=== PATIENT | female | born 1980 | race Caucasian/White ===

== ENCOUNTER 2018-09-17 12:54 | Emergency (ER) | payer SELFPAY ==
[2018-09-17] MEDS ORDERED: predniSONE 20 MG TAB ONE (13:47)
[2018-09-17] MEDS ORDERED: hydrOXYzine 25 MG TAB ONE (13:47)
[2018-09-17 14:34] LABS: ALT (SGPT) 14 U/L (8-55); AST (SGOT) 10 U/L (5-34); Albumin 3.9 g/dL (3.5-5.0); Alkaline Phosphatase 89 U/L (40-150); Anion Gap 12 mmol/L (10-20); BUN (Urea Nitrogen) 10 mg/dL (7.0-18.7); Bilirubin, Total 0.3 mg/dL (0.2-1.2); Calc. Creatinine Clearance 0 mL/min (70-130); Calcium 9.2 mg/dL (7.8-10.44); Carbon Dioxide 23 mmol/L (22-29); Chloride 105 mmol/L (98-107); Estimated GFR-MDRD 86; Globulin 3.3 g/dL (2.4-3.5); Glucose 129 mg/dL (70-105); Potassium 4.1 mmol/L (3.5-5.1); Protein, Total 7.2 g/dL (6.0-8.3); Sodium 136 mmol/L (136-145)
[2018-09-17 14:49] LABS: #Eosinphils 0.5 thou/uL (0.0-0.7); #Lymphocytes 2.4 thou/uL (1.20-3.40); #Monocytes 0.8 thou/uL (0.11-0.59); %Basophils 0.4 % (0.0-1.0); %Eosinophils 5.1 % (0.0-10.0); %Lymphocytes 22.1 % (21.0-51.0); %Monocytes 7.5 % (0.0-10.0); %Neutrophils 64.9 % (42.0-75.0); Hemoglobin 11.7 g/dL (12.0-16.0); Mean Corpuscular HGB CONC 32.6 g/dL (32.0-36.0); Mean Corpuscular Hemoglobin 30.2 pg (27.0-31.0); Mean Corpuscular Volume 92.7 fL (78.0-98.0); Mean Platelet Volume 8.3 fL (7.4-10.4); Platelet Count 367 thou/uL (130-400); RBC Distribution Width 12.1 % (11.5-14.5); Red Blood Cell (RBC) Count 3.87 mill/uL (4.20-5.40); White Blood Cell (WBC) Count 10.8 thou/uL (4.8-10.8)
== END 2018-09-17 15:02 | disposition home or self-care (01) ==
LOC: ERS 12:54
DX: S40.862A Insect bite (nonvenomous) of left upper arm, initial encounter (principal); S40.861A Insect bite (nonvenomous) of right upper arm, initial encounter; S80.862A Insect bite (nonvenomous), left lower leg, initial encounter; S80.861A Insect bite (nonvenomous), right lower leg, initial encounter; L03.113 Cellulitis of right upper limb; L03.114 Cellulitis of left upper limb; L03.115 Cellulitis of right lower limb; L03.116 Cellulitis of left lower limb; W57.XXXA Bitten or stung by nonvenomous insect and other nonvenomous arthropods, initial encounter
CPT/HCPCS: 36415; 80053; 85025; 99283; J7512

== ENCOUNTER 2019-02-28 17:13 | Inpatient (IN) | payer MEDICAID, SELFPAY ==
[~2019-02-28 17:13] MED LIST: Heparin 1,000 UNITS/ML VIAL ONE
[2019-02-28] MEDS ORDERED: Ondansetron PF 4 MG/2 ML Vial ONE (17:30)
[2019-02-28] MEDS ORDERED: Morphine 4 MG/ML VIAL ONE (17:30)
[2019-02-28] MEDS ORDERED: Clindamycin/D5W 900 mg/50 ml Premix Bag ONE (17:30)
[2019-02-28] MEDS ORDERED: HYDROcodone/Acetaminophen 7.5/325 mg Tablet PO PRN (18:57)
[2019-02-28] MEDS ORDERED: Senokot S 8.6-50 MG TAB PO PRN (18:57)
[2019-02-28] MEDS ORDERED: diphenhydrAMINE 50 MG/ML VIAL IVP SCH (19:00)
[2019-02-28] MEDS ORDERED: Vancomycin HCl 1 GM in Premix Bag 1 BAG IVPB SCH (19:45)
[2019-02-28] MEDS ORDERED: Ondansetron ODT 4 MG TAB SL PRN (20:11)
[2019-02-28] MEDS ORDERED: Ondansetron PF 4 MG/2 ML Vial IVP PRN (20:11)
[2019-02-28 20:12] VITALS: BMI 50.1
[2019-02-28] MEDS: Famotidine 20 MG TAB PO SCH (20:26)
[2019-02-28] MEDS: Sodium Chloride 0.9% 1,000 ML IV SCH (20:26)
[2019-02-28] MEDS ORDERED: Morphine 4 MG/ML VIAL SLOW IVP PRN (20:30)
[2019-02-28] MEDS: Morphine 4 MG/ML VIAL SLOW IVP PRN (20:56)
[2019-02-28] MEDS: hydrOXYzine 25 MG TAB PO PRN (20:59)
--- NOTE | 2019-02-28 21:46 | HP ---
CHIEF COMPLAINT: Fever. HISTORY OF PRESENT ILLNESS: Ms. Mcqueen is a pleasant female, who reported to the emergency room today in [place] for evaluation of fever, chills, and malaise. The patient has a history of Pemphigus foliaceus, lymphocytic disease, which involves the deep layers of skin causing an antigen antibody response, and causes the softening of the skin, and exposure of the deep layers to infection. She reports that she has been at [facility] twice over the last month and received an infusion to help with the skin lesions. She is not sure what it is, but she reports that it is in her phone and when her phone charges, she will look it up and tell us. She has a followup appointment for another infusion on March 08 and has a followup appointment with the MS doctor on the of this month. She reports that she has been feeling ill for the last couple of days and reports that her fever, because of her disorder, she feels feverish on the inside, less so on the outside. Workup in the emergency room over [place] show that the patient had a temp of a 101. She was tachycardic, hypertensive, dyspneic, and she was started on some fluids and antibiotics. She was given 3 L of lactated Ringer's. Clindamycin was acknowledged but not given until she came to [facility], so ibuprofen, prednisone 60 mg, Zosyn, fentanyl 50 mcg, vancomycin 2 g, Phenergan 25, Zofran 4, and Tylenol 1000 mg. She was initially going to be transferred to [place] after Dr. Murphy in the ER at [place], talk to her gravity prospecting operator, Dr. Willett in [place]. Beds were full and so he stated it was important for her to receive her prednisone 60 mg daily so the emergency room of [place] gave her a dose today, and she was sent over to [facility] for admission for sepsis, most likely related to cellulitis due to her PF disorder. By the time she was sent over, vital signs had improved. Blood pressure 187/82, pulse 103, respirations 20, temp slightly improved at 100.3. LABORATORY DATA: Lab work shows white blood cell count 14.6, hemoglobin 10.4, hematocrit 32.3, and platelet count 430. Sodium of 133, potassium of 4.1, glucose 149, and lactic acid 3.1. Urine was negative. She will be admitted to the medical floor for further management and antibiotic therapy. REVIEW OF SYSTEMS: GENERAL: The patient reports fever, chills, malaise. Reports pain due to skin lesions and bullae. Reports pain from these open sores which are systemic. EYES: Denies any eye pain. CARDIOVASCULAR: Denies any chest pain. Denies any shortness of breath. GI: Denies any abdominal pain, current nausea, vomiting, diarrhea, although she did have some nausea earlier today. BACK: Denies any back pain. All systems reviewed and are negative unless mentioned in the HPI or above. PAST MEDICAL HISTORY: Pertinent for hypertension, obesity, she has some kidney stones. She reports that she has one in her left kidney which is too large to pass on its own and then Pemphigus vulgaris. PAST SURGICAL HISTORY: Eardrum transplant, tubal ligation, and appendectomy. PSYCHIATRIC HISTORY: Has depression. SOCIAL HISTORY: Lives at home with her family. Denies any alcohol or drug use. Has no smoking history. ALLERGIES: KNOWN ALLERGIES, CEFTAZIDIME, DIAZEPAM, AND SILVADENE. CURRENT MEDICATIONS: Per the ER system. This have to be verified. 1. Hydrocortisone topical 2.5% two times a day. 2. Prednisone 60 mg p.o. once a day. 3. Sertraline 50 mg one tab once a day. 4. Hydroxyzine 25 mg one tab q.6 hours. 5. Amlodipine 5 mg p.o. once a day. 6. Doxycycline 100 mg 2 times a day. PHYSICAL EXAMINATION: VITAL SIGNS: Blood pressure 158/84, pulse is 99, respirations are 18, temperature is 98.4, and pO2 sats are 99% on room air. CONSTITUTIONAL: The patient is a little tachycardic. She looks in mild to moderate pain distress, but she is alert and oriented to person, place, and time. HEENT: Head is atraumatic and normocephalic. Eyes, pupils are equally round and reactive to light. Extraocular muscles are intact. ENT, mouth exam is normal. Mucous membranes are moist. NECK: Normal range of motion. Trachea is midline. RESPIRATORY: Chest breath sounds are clear. Chest expansion is equal. CARDIOVASCULAR: Regular rate and rhythm. Heart sounds are normal. ABDOMEN: Nontender. Bowel sounds are heard. Exam is limited by body habitus. BACK: Normal range of motion. No CVA tenderness. EXTREMITIES: Upper extremity normal range of motion. Inspection is normal except for the skin. Sensation is intact. Radial pulses are normal. Lower extremities, normal range of motion. Motor strength is normal. Pedal pulses are normal. There is edema bilaterally +2. NEURO: She is oriented to person, place, and time. Speech is normal. SKIN: Warm, dry. She has bullous lesions systemically, varying degrees, and edges of healing with serous fluid. PLAN/ASSESSMENT: 1. Sepsis most likely due to cellulitis due to Pemphigus vulgaris. The patient reports that she has a hard time taking a good bath every day because the water hurts her skin due to the bullous lesions and sensitivity. We will ask Wound Care to consult and give us recommendations. We will ask Dr. Barrios, DIANA to give us his recommendations. Per her gravity prospecting operator in [place], we will continue the prednisone 60 mg p.o. daily. Antibiotics were started in the emergency room, vancomycin, Zosyn, and clindamycin. The patient has an allergy to third class cephalosporin. Pharmacy was contacted in [place] and the pharmacy recommended that we start meropenem instead of the Zosyn. This has been dosed q.8. IV fluids at 100 mL/h continued. Pain medication Zofran as needed. Also we will continue Atarax for the itching that she has primarily on her back. 2. History of hypertension. We will trend. We will continue her amlodipine. Start p.r.n. medications as needed. 3. Deep venous thrombosis and gastrointestinal prophylaxis started. 4. Case discussed with Dr. Antonio, who agrees with plan. Job ID: [id number]
[2019-02-28] MEDS: MEROPENEM 1 GM/50 ML 1 GM in Premix Bag 1 BAG IVPB SCH (22:30)
[2019-02-28] MEDS ORDERED: Sodium Chloride 0.9% 1,000 ML IV SCH (22:30)
[2019-02-28] MEDS: HYDROcodone/Acetaminophen 7.5/325 mg Tablet PO PRN (22:31)
[2019-03-01] MEDS: Clindamycin/D5W 900 MG in Premix Bag 1 BAG IVPB SCH ×3 (00:28→17:10)
[2019-03-01] MEDS ORDERED: Proctozone-HC 2.5% Cream 30 GM TUBE TOP PRN (01:26)
[2019-03-01] MEDS: Morphine 4 MG/ML VIAL SLOW IVP PRN ×3 (01:52→22:47)
[2019-03-01] MEDS ORDERED: predniSONE 20 MG TAB ONE (07:37)
[2019-03-01] MEDS ORDERED: Clindamycin/D5W 900 mg/50 ml Premix Bag ONE (07:38)
[2019-03-01] MEDS ORDERED: HYDROcodone/Acetaminophen 7.5/325 mg Tablet ONE (07:39)
[2019-03-01] MEDS ORDERED: Famotidine 20 MG TAB ONE (07:49)
[2019-03-01] MEDS: Enoxaparin Sodium 40 MG/0.4 ML SYRINGE SC SCH (08:15)
[2019-03-01] MEDS: Amlodipine 5 MG TAB PO SCH (08:15)
[2019-03-01] MEDS: predniSONE 20 MG TAB PO SCH (08:15)
[2019-03-01] MEDS: Nystatin Ointment 15 GM TUBE TOP SCH ×2 (08:15→20:12)
[2019-03-01] MEDS: Famotidine 20 MG TAB PO SCH ×2 (08:15→20:08)
[2019-03-01] MEDS: Sodium Chloride 0.9% 1,000 ML IV SCH ×2 (12:49→15:29)
[2019-03-01] MEDS: MEROPENEM 1 GM/50 ML 1 GM in Premix Bag 1 BAG IVPB SCH ×2 (12:50→15:28)
[2019-03-01] MEDS: HYDROcodone/Acetaminophen 7.5/325 mg Tablet PO PRN ×2 (13:08→20:07)
[2019-03-01 14:15] LABS: #Eosinphils 0.2 thou/uL (0.0-0.7); #Lymphocytes 2.2 thou/uL (1.20-3.40); #Monocytes 1.4 thou/uL (0.11-0.59); #Neutrophils 6.9 thou/uL (1.40-6.50); %Basophils 0.2 % (0.0-1.0); %Eosinophils 2.1 % (0.0-10.0); %Lymphocytes 20.7 % (21.0-51.0); %Monocytes 12.6 % (0.0-10.0); %Neutrophils 64.4 % (42.0-75.0); Hemoglobin 10.5 g/dL (12.0-16.0); Mean Corpuscular HGB CONC 32.4 g/dL (32.0-36.0); Mean Corpuscular Hemoglobin 29.1 pg (27.0-31.0); Mean Corpuscular Volume 89.7 fL (78.0-98.0); Mean Platelet Volume 7.9 fL (7.4-10.4); Platelet Count 361 thou/uL (130-400); RBC Distribution Width 13.8 % (11.5-14.5); Red Blood Cell (RBC) Count 3.62 mill/uL (4.20-5.40); White Blood Cell (WBC) Count 10.7 thou/uL (4.8-10.8)
--- NOTE | 2019-03-01 16:00 | SPC ---
Sonographic guided left upper extremity PICC placement HISTORY: Skin infection. FINDINGS: After explaining the procedure and answering all questions, left upper extremity was preppe d and draped in usual sterile fashion. Sterile technique, buffered local anesthesia, sonographic guidance, and a 22-gauge needle were used to carefully access the left cephalic vein. Standard techni que was used to place the tip of a 5 Chinese single lumen PICC so that the tip lies at the level of the cavoatrial junction. Catheter was flushed and secured externally. Patient tolerated the procedure well and was returned in unchanged condition. Fluoroscopy time 0 seconds. IMPRESSION: Left upper extremity PICC is ready for use.
[2019-03-01 19:44] LABS: Anion Gap 18 mmol/L (10-20); BUN (Urea Nitrogen) 11 mg/dL (7.0-18.7); Calc. Creatinine Clearance 272 mL/min (70-130); Calcium 8.5 mg/dL (7.8-10.44); Carbon Dioxide 18 mmol/L (22-29); Chloride 104 mmol/L (98-107); Estimated GFR-MDRD Greater than 90; Glucose 83 mg/dL (70-105); Potassium 4.5 mmol/L (3.5-5.1); Sodium 135 mmol/L (136-145)
[2019-03-01] MEDS: hydrOXYzine 25 MG TAB PO PRN (20:08)
[2019-03-01] MEDS ORDERED: FLU VACC QS2019-20(6MOS UP)/PF 60 MCG/0.5 ML SYRINGE IM ONE (21:00)
[2019-03-01] MEDS ORDERED: Prevnar 13-Val Conj/PF 0.5 ML SYRINGE IM ONE (21:00)
--- NOTE | 2019-03-01 21:03 | PDOC.HOSPP ---
- Subjective Subjective: Continues to have severe pain especially around the neck and axillae. Had an infusion of some kind at [facility] and has been on Prednisone high dose since. Was not aware that she was febrile until she was in the ED. - Objective Vital Signs & Weight: Vital Signs (12 hours) Temp Pulse Resp BP Pulse Ox 03/01/19 19:49 98.6 F 106 H 19 155/76 H 99 Weight Admit Weight 329 lb 11.2 oz Weight 329 lb 11.2 oz I&O: 02/28/19 03/01/19 03/02/19 06:59 06:59 06:59 Intake Total 1080 Balance 1080 Result Diagrams: 03/01/19 07:03 03/01/19 07:03 Hospitalist ROS - Medication Medications: Active Medications Generic Name Dose Route Start Last Admin Trade Name Freq PRN Reason Stop Dose Admin Hydrocodone Bitart/Acetaminophen 2 tab 02/28/19 18:57 03/01/19 20:07 [place] 7.5/325 PO 2 tab Q4H PRN Administration Severe Pain (7-10) Amlodipine Besylate 5 mg 03/01/19 09:00 03/01/19 08:15 Norvasc PO 5 mg DAILY KERRY Administration Enoxaparin Sodium 40 mg 03/01/19 09:00 03/01/19 08:15 Lovenox SC 40 mg 0900 KERRY Administration Famotidine 20 mg 02/28/19 21:00 03/01/19 20:08 Pepcid PO 20 mg BID KERRY Administration Hydroxyzine HCl 25 mg 02/28/19 20:31 03/01/19 20:08 Atarax PO 25 mg Q6H PRN Administration Itching Sodium Chloride 1,000 mls @ 100 mls/hr 02/28/19 19:00 03/01/19 15:29 Normal Saline 0.9% IV Not Given .Q10H KERRY Influenza Virus Vaccine Quadrival 60 mcg 03/01/19 21:00 03/01/19 20:13 Fluzone Quad [id number] Syringe IM 03/01/19 21:01 Not Given .ONCE ONE Morphine Sulfate 4 mg 02/28/19 20:47 03/01/19 17:04 Morphine SLOW IVP 4 mg Q4H PRN Administration Breakthrough Pain Nystatin 0 gm 03/01/19 09:00 12/04/19 20:12 Mycostatin Ointment TOP Not Given BID KERRY Pneumococcal 13-Valent Conj Vacc 0.5 ml 03/01/19 21:00 03/01/19 20:13 Prevnar IM 03/01/19 21:01 Not Given .ONCE ONE Prednisone 60 mg 03/01/19 08:00 03/01/19 08:15 Prednisone PO 60 mg QAM-WM KERRY Administration Sertraline HCl 50 mg 03/01/19 21:00 03/01/19 20:08 Zoloft PO 50 mg HS KERRY Administration Triamcinolone Acetonide 0 gm 03/01/19 09:00 03/01/19 20:12 Kenalog 0.1% Ointment TOP Not Given BID KERRY - Exam General Appearance: NAD, awake alert General - other findings: morbidly obese Heart: RRR, no murmur, no gallops, no rubs, normal peripheral pulses Respiratory: CTAB, no wheezes, no rales, no ronchi, normal chest expansion, no tachypnea, normal percussion Gastrointestinal: soft, non-tender, non-distended, normal bowel sounds, no palpable masses, no hepatomegaly, no splenomegaly, no bruit Extremities: no cyanosis, no clubbing, no edema Skin - other findings: Multiple pemphigoid lesions over entire body. Cellulitis at neck, axilla. Neurological: no new deficit Musculoskeletal: normal tone, normal strength, no muscle wasting Psychiatric: normal affect, normal behavior, A&O x 3 Hosp A/P (1) Sepsis Code(s): A41.9 - SEPSIS, UNSPECIFIED ORGANISM Status: Acute (2) Pemphigus foliaceous Code(s): L10.2 - PEMPHIGUS FOLIACEOUS Status: Acute (3) Cellulitis Code(s): L03.90 - CELLULITIS, UNSPECIFIED Status: Acute (4) Morbid obesity Code(s): E66.01 - MORBID (SEVERE) OBESITY DUE TO EXCESS CALORIES Status: Acute - Plan Continue IV abx and follow up cultures. ID consult. Pain management. Wound Care Team.
[2019-03-02] MEDS: HYDROcodone/Acetaminophen 7.5/325 mg Tablet PO PRN ×4 (00:47→20:26)
[2019-03-02] MEDS: Sodium Chloride 0.9% 1,000 ML IV SCH ×3 (00:55→20:28)
--- NOTE | 2019-03-02 00:57 | CON ---
DATE OF CONSULTATION: 03/01/2019 REASON FOR CONSULTATION: Pemphigus foliaceus with fever. HISTORY OF PRESENT ILLNESS: A 38-year-old patient who has a history of pemphigus foliaceus, which was diagnosed in [facility] in August through a skin biopsy. The patient has been managed over there and had been initially on corticosteroids, 60 mg of prednisone daily, but due to lack of improvement. She has been started on Rituxan infusions, has gotten 1 dose thus far. She lives I believe in [place] with family members and is very limited in her ability to carry out her activities of daily living, because of her skin eruption. She has constant burning sensation in her skin as if she had a constant sunburn. She also has difficulty in sleeping at night, cannot go outside because of the possible sun exposure and developed a fever with worsening pain and has been admitted. She has some headaches. No sore throat, odynophagia, or dysphagia. No diarrhea or genitourinary symptoms. No cough, no chest pain. No abdominal pain. PAST MEDICAL HISTORY: Hypertension, obesity, nephrolithiasis, Pemphigus foliaceus. The patient had skin biopsies in [place]. SOCIAL HISTORY: Disabled. No smoking history, no alcoholic beverages or drug use. ALLERGIES: CEFTAZIDIME, SILVADENE. MEDICATIONS: Currently; 1. Tylenol. 2. [place]. 3. Norvasc. 4. Clindamycin. 5. Lovenox. 6. Pepcid. 7. Influenza. 8. Meropenem. 9. Prednisone 60 mg daily. 10. Zoloft. 11. Vancomycin. 12. Triamcinolone cream. PHYSICAL EXAMINATION: VITAL SIGNS: T-max 98.4, blood pressure 120/70, pulse respirations 99, respirations 18, O2 saturation 98. SKIN: With diffuse areas of skin blistering with scabs and exfoliation involving pretty much the entire body skin. It spares the mucosal surfaces, including the eye and oral cavity. No lymphadenopathy. HEENT: Ocular movements conjugate. Sclerae white. Pupils are equal. Oral cavity normal. Teeth numerous and in fairly decent shape. NECK: Supple. No jugular vein distention. LUNGS: Symmetric, clear breath sounds. S1-S2 regular rate. ABDOMEN: Soft. No ascites. No organomegaly. No bladder distention. Moves extremities equally with limitations imposed by her skin symptoms. EXTREMITIES: Pulses are 1+ in dorsalis pedis. Cognitive function appears to be intact. LABORATORY DATA: White cell count 10.7, hemoglobin 10.5, platelets 361, 64% neutrophils, 20% lymphocytes. Lactic acid 4.4. Blood cultures, one set labeled here as artery right leg with methicillin-resistant Staph aureus and Enterococcus faecalis. Looking at the previous blood cultures from earlier last month in January, we had MRSA in one set of blood cultures as well. There is culture of 2 sets from December with MRSA and there is one set in the in November this year with MRSA and group B Streptococcus. She has one blood culture with Proteus mirabilis from November as well both urine and blood with a broad susceptibility profile. IMAGING STUDIES: There is an abdomen and pelvis CT from January 13, 2019, which did not show any acute abdominal or pelvic abnormality. She just had a PICC line inserted, because of difficulty with access. ASSESSMENT: 1. Pemphigus foliaceus on high-dose prednisone and recently started on Rituxan. 2. 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 Does not appear that has been treated yet. 3. Diffuse body aches with possible dissemination of methicillin-resistant Staphylococcus aureus to joints other sites. Lungs are a possibility. Back area is a possibility. Endocarditis is something to be considered as well. DISCUSSION: This is a quite difficult management situation, because of her diffuse skin disease and difficulty with examining her body due to pain anytime her skin is touched. I am concerned that this bacteremia might have been overlooked since November, but we will continue vancomycin, discontinue meropenem and clindamycin, target trough around 15 mcg/ml. She already has a PICC line and will need long-term treatment. We will need to evaluate her joints, back area and echocardiogram to rule out involvement of those sites. May need a CT of her chest depending on clinical progress. Job ID: [id number] [facility]
[2019-03-02 01:32] LABS: Vancomycin, Trough 14.8 ug/mL
[2019-03-02] MEDS: Morphine 4 MG/ML VIAL SLOW IVP PRN ×4 (04:12→21:04)
[2019-03-02] MEDS: hydrOXYzine 25 MG TAB PO PRN (04:14)
[2019-03-02] MEDS: Famotidine 20 MG TAB PO SCH ×2 (08:45→20:27)
[2019-03-02] MEDS: predniSONE 20 MG TAB PO SCH (08:45)
[2019-03-02] MEDS: Amlodipine 5 MG TAB PO SCH (08:45)
[2019-03-02] MEDS: Enoxaparin Sodium 40 MG/0.4 ML SYRINGE SC SCH (08:47)
[2019-03-02] MEDS: Nystatin Ointment 15 GM TUBE TOP SCH ×2 (08:50→19:30)
--- NOTE | 2019-03-02 17:09 | PDOC.HOSPP ---
- Subjective Subjective: Has a significant headache today. Does not have a history of frequent headaches. Neck and skin slightly better. Echo was ordered, but she says the tech deferred because of her severe skin condition. - Objective Vital Signs & Weight: Vital Signs (12 hours) Temp Pulse Resp BP Pulse Ox 03/02/19 08:45 102 H 03/02/19 08:09 99.1 F 102 H 18 172/81 H 98 03/02/19 08:00 98 Weight Admit Weight 329 lb 11.2 oz Weight 329 lb 11.2 oz I&O: 03/01/19 03/02/19 03/03/19 06:59 06:59 06:59 Intake Total 1080 720 Balance 1080 720 Result Diagrams: 03/01/19 07:03 03/01/19 07:03 Hospitalist ROS - Medication Medications: Active Medications Generic Name Dose Route Start Last Admin Trade Name Freq PRN Reason Stop Dose Admin Hydrocodone Bitart/Acetaminophen 2 tab 02/28/19 18:57 03/02/19 13:54 [place] 7.5/325 PO 2 tab Q4H PRN Administration Severe Pain (7-10) Amlodipine Besylate 5 mg 03/01/19 09:00 03/02/19 08:45 Norvasc PO 5 mg DAILY KERRY Administration Enoxaparin Sodium 40 mg 03/01/19 09:00 03/02/19 08:47 Lovenox SC 40 mg 0900 KERRY Administration Famotidine 20 mg 02/28/19 21:00 03/02/19 08:45 Pepcid PO 20 mg BID KERRY Administration Hydroxyzine HCl 25 mg 02/28/19 20:31 03/02/19 04:14 Atarax PO 25 mg Q6H PRN Administration Itching Sodium Chloride 1,000 mls @ 100 mls/hr 02/28/19 19:00 03/02/19 11:16 Normal Saline 0.9% IV Not Given .Q10H KERRY Vancomycin HCl 2 gm/ Sodium 500 mls @ 250 mls/hr 03/02/19 02:00 03/02/19 13: 53 Chloride IVPB 500 mls 0200,1400 KERRY Administration Morphine Sulfate 4 mg 02/28/19 20:47 03/02/19 10:55 Morphine SLOW IVP 4 mg Q4H PRN Administration Breakthrough Pain Nystatin 0 gm 03/01/19 09:00 12/05/19 08:50 Mycostatin Ointment TOP 1 applic BID KERRY Administration Prednisone 60 mg 03/01/19 08:00 03/02/19 08:45 Prednisone PO 60 mg QAM-WM KERRY Administration Sertraline HCl 50 mg 03/01/19 21:00 03/01/19 20:08 Zoloft PO 50 mg HS KERRY Administration Triamcinolone Acetonide 0 gm 03/01/19 09:00 03/02/19 08:50 Kenalog 0.1% Ointment TOP 1 applic BID KERRY Administration - Exam General Appearance: NAD, awake alert General - other findings: Morbidly obese. Her facies. Heart: RRR, no murmur, no gallops, no rubs, normal peripheral pulses Respiratory: CTAB, no wheezes, no rales, no ronchi, normal chest expansion, no tachypnea, normal percussion Gastrointestinal: soft, non-tender, non-distended, normal bowel sounds, no palpable masses, no hepatomegaly, no splenomegaly, no bruit Extremities: no cyanosis, no clubbing, no edema Skin: normal turgor Skin - other findings: Severe pemphigoid and sloughing. Some drying, scabbing. Musculoskeletal: normal tone Psychiatric: normal affect, normal behavior, A&O x 3 Hosp A/P (1) Sepsis Code(s): A41.9 - SEPSIS, UNSPECIFIED ORGANISM Status: Acute (2) Pemphigus foliaceous Code(s): L10.2 - PEMPHIGUS FOLIACEOUS Status: Acute (3) Cellulitis Code(s): L03.90 - CELLULITIS, UNSPECIFIED Status: Acute (4) Morbid obesity Code(s): E66.01 - MORBID (SEVERE) OBESITY DUE TO EXCESS CALORIES Status: Acute (5) MRSA bacteremia Code(s): R78.81 - BACTEREMIA Status: Acute - Plan Continue IV abx with Vanc. Appreciate ID's recs. Had MRSA positive blood cultures in November. May have persisted since that time. Echo pending. Pain management. Wound Care Team can't do much for her. Continue steroids.
--- NOTE | 2019-03-02 18:01 | PRG ---
DATE OF SERVICE: 03/02/2019 SUBJECTIVE: Feeling about the same with a burning sensation in the skin, which is a constant problem for her. No back pain. No pain in any joints. No diarrhea. Voiding without difficulty. Has good appetite. OBJECTIVE: VITAL SIGNS: T-max 99.1, blood pressure 170/80, pulse 102. SKIN: Diffuse skin exfoliation and blistering. LUNGS: Clear. HEART: S1 and S2, regular rate. ABDOMEN: Soft, nondistended. LABORATORY DATA: White cell count is 10.7, hemoglobin 10.5, platelets 361. We have the blood cultures as noted previously. ASSESSMENT AND DISCUSSION: Pemphigus foliaceus, on high-dose prednisone and recently started on Rituxan and recurrent episodes of methicillin-resistant Staphylococcus aureus bacteremia over the past few months, although contamination of the sample would be also a concern in her case. We are forced to give her treatment in view of her immunosuppression and high risk for invasive Staphylococcus infections. We will advise continuation of vancomycin for at least 4 weeks as long as her echocardiogram does not reveal any evidence of endocarditis. Job ID: [id number]
[2019-03-02] MEDS: diphenhydrAMINE 25 MG CAP PO PRN (21:03)
[2019-03-03] MEDS: HYDROcodone/Acetaminophen 7.5/325 mg Tablet PO PRN ×4 (00:07→20:20)
[2019-03-03] MEDS: Morphine 4 MG/ML VIAL SLOW IVP PRN ×3 (01:21→21:10)
[2019-03-03] MEDS: Sodium Chloride 0.9% 1,000 ML IV SCH ×2 (03:46→11:37)
[2019-03-03 03:48] LABS: Lactic Acid 1.3 mmol/L (0.5-2.2)
[2019-03-03 03:56] LABS: Anion Gap 13 mmol/L (10-20); BUN (Urea Nitrogen) 10 mg/dL (7.0-18.7); Calc. Creatinine Clearance 304 mL/min (70-130); Calcium 7.5 mg/dL (7.8-10.44); Carbon Dioxide 22 mmol/L (22-29); Chloride 108 mmol/L (98-107); Estimated GFR-MDRD Greater than 90; Glucose 122 mg/dL (70-105); Potassium 3.6 mmol/L (3.5-5.1); Sodium 139 mmol/L (136-145)
[2019-03-03] MEDS: Famotidine 20 MG TAB PO SCH ×2 (08:12→20:20)
[2019-03-03] MEDS: Enoxaparin Sodium 40 MG/0.4 ML SYRINGE SC SCH (08:13)
[2019-03-03] MEDS: Amlodipine 5 MG TAB PO SCH (08:13)
[2019-03-03] MEDS: predniSONE 20 MG TAB PO SCH (08:13)
[2019-03-03] MEDS: Nystatin Ointment 15 GM TUBE TOP SCH ×2 (08:21→20:10)
--- NOTE | 2019-03-03 11:45 | PRG ---
DATE OF SERVICE: 03/03/2019 SUBJECTIVE: The patient is seen and examined at the bedside. She is sitting in the chair complaining about a lot of pain all over her body. Her mucous membranes are not involved. She is able to eat. OBJECTIVE: VITAL SIGNS: Blood pressure is 158/80, pulse is 97, temperature is 98.8, respiratory rate is 18, O2 saturation is 98% on room air. HEENT: Her head is atraumatic and normocephalic. SKIN: Covered with open areas from the previous blisters all over her body. HEART: S1 and S2 are normal. LUNGS: Clear. ABDOMEN: Soft and obese. LABORATORY STUDIES: Sodium of 139, potassium 3.6, chloride 108, BUN 10, creatinine 0.58, glucose 122. Lactic acid 1.3. Calcium 7.5. IMPRESSION: 1. Pemphigus foliaceus, on steroids of high dose, 60 mg prednisone daily. 2. Sepsis. 3. Cellulitis. 4. Morbid obesity. 5. Methicillin-resistant Staphylococcus aureus bacteremia. PLAN: Continue vancomycin. PICC line is in place. binder technician said that he cannot do transthoracic echo, and he recommends transesophageal echo. We will wait until the skin of the left chest is in better condition, and we will do transthoracic echo later. We will continue pain management. We will continue Wound Care team, and we will continue vancomycin. Job ID: [id number]
[2019-03-03] MEDS: diphenhydrAMINE 25 MG CAP PO PRN (21:10)
[2019-03-04] MEDS: Sodium Chloride 0.9% 1,000 ML IV SCH ×2 (01:15→16:40)
[2019-03-04 01:21] LABS: Vancomycin, Trough 11.2 ug/mL
[2019-03-04 08:25] LABS: Anion Gap 13 mmol/L (10-20); BUN (Urea Nitrogen) 9 mg/dL (7.0-18.7); Calc. Creatinine Clearance 276 mL/min (70-130); Calcium 8.7 mg/dL (7.8-10.44); Carbon Dioxide 27 mmol/L (22-29); Chloride 104 mmol/L (98-107); Estimated GFR-MDRD Greater than 90; Glucose 101 mg/dL (70-105); Sodium 140 mmol/L (136-145)
[2019-03-04] MEDS: Morphine 4 MG/ML VIAL SLOW IVP PRN ×2 (08:51→16:52)
[2019-03-04] MEDS: Famotidine 20 MG TAB PO SCH ×2 (08:52→20:29)
[2019-03-04] MEDS: predniSONE 20 MG TAB PO SCH (08:53)
[2019-03-04] MEDS: Amlodipine 5 MG TAB PO SCH (08:53)
[2019-03-04] MEDS: hydrOXYzine 25 MG TAB PO PRN (08:54)
[2019-03-04] MEDS: Nystatin Ointment 15 GM TUBE TOP SCH ×2 (09:59→20:42)
[2019-03-04] MEDS: Enoxaparin Sodium 40 MG/0.4 ML SYRINGE SC SCH (10:00)
--- NOTE | 2019-03-04 12:14 | PRG ---
DATE OF SERVICE: 03/04/2019 SUBJECTIVE: The patient is seen and examined at the bedside. She complains about some abdominal discomfort. She said that when she woke up, her back was stuck over the sheet. This morning, it was painful to get up. OBJECTIVE: VITAL SIGNS: Blood pressure is 151/89, pulse is 92, temperature is 98.7, respirations 20, and O2 saturation is 100 on room air. SKIN: Looks somewhat better today. Multiple lesions, bone drier than they were yesterday. Her mucosa is not involved. HEENT: Her oral mucosa is looking normal. LUNGS: Clear. HEART: S1 and S2, normal. No S3. No S4. ABDOMEN: Obese, soft, mildly tender in the mid portion. Bowel sounds are present. NEUROLOGIC: Intact. LABORATORY DATA: Showed normal chemistry, normal glucose, normal calcium. Vancomycin trough is 11.2. IMPRESSION: 1. Pemphigus foliaceus, on steroids high dose. 2. Methicillin-resistant Staphylococcus aureus bacteremia, on vancomycin, recommended per ID. 3. Sepsis. 4. Cellulitis, improved. 5. Morbid obesity. 6. History of kidney stones and abdominal pain. We will get UA on her. Continue vancomycin. We will do echocardiogram when her left chest skin area is healed better. I do not think she would be a good candidate for any invasive procedure like LIZ at this point. We will await until her skin is better and do transthoracic echo to make sure there are no any vegetations or signs of endocarditis. She seems to be tolerating vancomycin well and we will continue the current regimen. Job ID: [id number]
[2019-03-04] MEDS ORDERED: Ascorbic Acid 500 mg Chewable Tablet PO SCH (14:15)
[2019-03-04] MEDS ORDERED: Zinc Sulfate 220 MG CAP PO SCH (14:30)
[2019-03-04 15:27] LABS: Bacteria/HPF None Seen HPF (None Seen); Bilirubin Negative (Negative); Blood, Urine Negative (Negative); Clarity Clear (Clear); Glucose, Urine (Dipstick) Normal (Negative); Leukocyte Negative Leu/uL (Negative); Nitrite Negative (Negative); Protein, Urine (Dipstick) Negative (Neg-Trace); RBC/HPF 0-3 HPF (0-3); Squamous Epithelial 0-3 HPF (0-3); Urobilinogen Normal mg/dL (Less than 2); WBC/HPF 0-3 HPF (0-3)
[2019-03-04] MEDS: HYDROcodone/Acetaminophen 7.5/325 mg Tablet PO PRN (20:30)
[2019-03-04] MEDS: diphenhydrAMINE 25 MG CAP PO PRN (20:30)
[2019-03-05] MEDS: HYDROcodone/Acetaminophen 7.5/325 mg Tablet PO PRN ×3 (01:23→17:41)
[2019-03-05 01:43] LABS: Vancomycin, Trough 24.3 ug/mL
[2019-03-05] MEDS: Sodium Chloride 0.9% 1,000 ML IV SCH ×2 (04:10→17:42)
[2019-03-05] MEDS: Morphine 4 MG/ML VIAL SLOW IVP PRN ×2 (04:37→20:28)
[2019-03-05] MEDS: predniSONE 20 MG TAB PO SCH (07:49)
[2019-03-05] MEDS: Famotidine 20 MG TAB PO SCH ×2 (07:49→20:28)
[2019-03-05] MEDS: Amlodipine 5 MG TAB PO SCH (07:50)
[2019-03-05] MEDS: Ascorbic Acid 500 mg Chewable Tablet PO SCH (07:50)
[2019-03-05] MEDS: Zinc Sulfate 220 MG CAP PO SCH (07:51)
[2019-03-05] MEDS: hydrOXYzine 25 MG TAB PO PRN ×2 (07:51→17:40)
[2019-03-05] MEDS: Enoxaparin Sodium 40 MG/0.4 ML SYRINGE SC SCH (07:52)
[2019-03-05] MEDS: Nystatin Ointment 15 GM TUBE TOP SCH ×2 (07:53→22:03)
[2019-03-05] MEDS: Vancomycin HCl 1.5 GM in Sodium Chloride 0.9% 250 ML 300 ML IVPB SCH ×2 (08:06→17:41)
[2019-03-05 08:13] LABS: #Eosinphils 0.2 thou/uL (0.0-0.7); #Lymphocytes 3.1 thou/uL (1.20-3.40); #Monocytes 1.1 thou/uL (0.11-0.59); #Neutrophils 4.8 thou/uL (1.40-6.50); %Basophils 0.3 % (0.0-1.0); %Eosinophils 2.5 % (0.0-10.0); %Lymphocytes 33.4 % (21.0-51.0); %Monocytes 12.2 % (0.0-10.0); %Neutrophils 51.5 % (42.0-75.0); Hemoglobin 9.7 g/dL (12.0-16.0); Mean Corpuscular HGB CONC 31.6 g/dL (32.0-36.0); Mean Corpuscular Hemoglobin 28.1 pg (27.0-31.0); Mean Corpuscular Volume 88.7 fL (78.0-98.0); Mean Platelet Volume 7.6 fL (7.4-10.4); Platelet Count 425 thou/uL (130-400); RBC Distribution Width 13.4 % (11.5-14.5); Red Blood Cell (RBC) Count 3.45 mill/uL (4.20-5.40); White Blood Cell (WBC) Count 9.2 thou/uL (4.8-10.8)
[2019-03-05 08:26] LABS: Anion Gap 10 mmol/L (10-20); BUN (Urea Nitrogen) 12 mg/dL (7.0-18.7); Calc. Creatinine Clearance 285 mL/min (70-130); Calcium 8.6 mg/dL (7.8-10.44); Carbon Dioxide 29 mmol/L (22-29); Chloride 105 mmol/L (98-107); Estimated GFR-MDRD Greater than 90; Glucose 94 mg/dL (70-105); Potassium 4.1 mmol/L (3.5-5.1); Sodium 140 mmol/L (136-145)
[2019-03-05] MEDS ORDERED: hydrALAZINE 20 MG/ML VIAL SLOW IVP PRN (09:39)
[2019-03-05] MEDS ORDERED: Amlodipine 5 MG TAB PO SCH (09:45)
--- NOTE | 2019-03-05 10:17 | PRG ---
DATE OF SERVICE: 03/05/2019 SUBJECTIVE: The patient is seen and examined at the bedside. She has generalized pain, the same kind what she usually has. Also, there is some discomfort in the abdomen she complains about and she thinks that this is related to her period, which is coming. This is mostly located in the lower abdomen. OBJECTIVE: VITAL SIGNS: Blood pressure is elevated at 200/122, pulse is 88, respiratory rate is 16, O2 saturation is 100% on room air. SKIN: Skin lesions look flight director, the very few new ones, no blisters. HEENT: Her eyes are PERRLA. Sclerae are nonicteric. Oral mucosa is moist. No blisters in her mouth. LUNGS: Clear. HEART: S1 and S2, normal. ABDOMEN: Obese, mildly distended, and mildly tender in the suprapubic area. No guarding. No masses. EXTREMITIES: Much less lesions on her both lower extremities. NEUROLOGICAL: She follows my commands. She moves her all 4 extremities. There are no any motor or sensory deficits. LABORATORY DATA: Labs showed white count of 9.2, hemoglobin 9.7, hematocrit 30.6, and platelet count is 425,000. Normal chemistry. IMPRESSION: 1. Pemphigus foliaceus, on high dose of steroids. 2. Methicillin-resistant Staphylococcus aureus bacteremia, on vancomycin, recommended per ID. 3. Sepsis. 4. Cellulitis, improved. 5. Severe hypertension, most likely related to her steroid use on the top of her hypertension prior to this hospitalization. We will use hydralazine p.r.n. and double the dose on amlodipine to 10 mg from 5 and give her additional 5 mg now. 6. History of kidney stones and abdominal pain. Urinalysis did not show any hematuria, so this is most likely not related to her kidney stones. The patient will have echocardiogram done in the next day or two when her skin lesions are improved to the point that she can handle the test. It would be much safer and less invasive than doing LIZ. For now, we will continue her vancomycin. Continue her high dose of steroids. Continue vitamin C and zinc, which was started yesterday. We are going to double the dose on amlodipine as I mentioned above and continue topicals on her lesions with Kenalog and continue PPI for ulcer prevention. Job ID: [id number]
[2019-03-06] MEDS: Vancomycin HCl 1.5 GM in Sodium Chloride 0.9% 250 ML 300 ML IVPB SCH ×3 (00:14→16:44)
[2019-03-06] MEDS: Sodium Chloride 0.9% 1,000 ML IV SCH ×2 (05:41→17:50)
[2019-03-06] MEDS: Amlodipine 10 MG TAB PO SCH (08:19)
[2019-03-06] MEDS: predniSONE 20 MG TAB PO SCH (08:19)
[2019-03-06] MEDS: Famotidine 20 MG TAB PO SCH ×2 (08:20→20:06)
[2019-03-06] MEDS: Nystatin Ointment 15 GM TUBE TOP SCH ×2 (08:21→20:07)
[2019-03-06] MEDS: Ascorbic Acid 500 mg Chewable Tablet PO SCH (08:21)
[2019-03-06] MEDS: Enoxaparin Sodium 40 MG/0.4 ML SYRINGE SC SCH (08:22)
[2019-03-06] MEDS: Zinc Sulfate 220 MG CAP PO SCH (08:22)
[2019-03-06] MEDS: Morphine 4 MG/ML VIAL SLOW IVP PRN ×3 (11:01→22:49)
[2019-03-06 12:17] LABS: Vancomycin, Trough 14.7 ug/mL
--- NOTE | 2019-03-06 13:41 | PRG ---
DATE OF SERVICE: 03/06/2019 SUBJECTIVE: Having headaches intermittently. No sore throat. No dyspnea or cough. Feeling hot and skin right under the right side of neck fold crease is bothering her and itchiness is bothering her. She does not have any urinary symptoms. Not having diarrhea or abdominal pain. OBJECTIVE: VITAL SIGNS: T-max is 98.6, blood pressure 149/82, pulse 111, respiratory rate 20, O2 sat 96. SKIN: Shows multiple areas of crusting. The areas of blistering with ruptured blisters and exposure of the dermis scattered through the body skin all the way from the face towards the feet. There is a PICC line in the left upper extremity and is voiding spontaneously. LUNGS: Clear. HEART: S1 and S2. Regular rate. ABDOMEN: Soft, not distended or tender. LABORATORY DATA: White cell count 9.2, hemoglobin 9.7, platelets 425. Creatinine 0.62. ASSESSMENT AND DISCUSSION: Pemphigus foliaceus, she is on high-dose prednisone, recently started on Rituxan, could not get a second dose of Rituxan because she developed general malaise, fever, myalgias with methicillin-resistant Staphylococcus aureus bacteremia since November, although contamination of the sample could be a concern. She has had multiple positive sets, so I think we are forced to treat her for protracted period of time. No areas of dissemination to spine or long bones/joints. Endocarditis, she is not yet evaluated. The patient is currently receiving vancomycin. Her last trough level was 14.7. The patient is at difficult management situation because of the refractory skin condition. Job ID: [id number]
--- NOTE | 2019-03-06 16:23 | PDOC.HOSPP ---
- Subjective Encounter Date: 03/06/19 Encounter Time: 07:00 Subjective: Pt seen for followup re: bacteremia. c/o headache. No fevers. - Objective Vital Signs & Weight: Vital Signs (12 hours) Temp Pulse Resp BP BP Pulse Ox 03/06/19 08:19 111 H 149/82 H 03/06/19 08:10 98.4 F 111 H 20 149/82 H 96 Weight Admit Weight 329 lb 11.2 oz Weight 329 lb 11.2 oz I&O: 03/05/19 03/06/19 03/07/19 06:59 06:59 06:59 Intake Total 4800 550 Balance 4800 550 Result Diagrams: 03/05/19 07:51 03/05/19 07:51 Additional Labs: labs and MARs reviewed by nm Hospitalist ROS - Review of Systems Cardiovascular: denies: chest pain, palpitations, orthopnea, paroxysmal noc. dyspnea, edema, light headedness Gastrointestinal: denies: nausea, vomiting, abdominal pain, diarrhea, constipation, melena, hematochezia Neurological: reports: other (headache) - Medication Medications: Active Medications Generic Name Dose Route Start Last Admin Trade Name Freq PRN Reason Stop Dose Admin Hydrocodone Bitart/Acetaminophen 2 tab 02/28/19 18:57 03/05/19 17:41 [place] 7.5/325 PO 2 tab Q4H PRN Administration Severe Pain (7-10) Amlodipine Besylate 10 mg 03/06/19 09:00 03/06/19 08:19 Norvasc PO 10 mg DAILY KERRY Administration Ascorbic Acid 500 mg 03/05/19 09:00 03/06/19 08:21 Vitamin C PO 500 mg DAILY KERRY Administration Diphenhydramine HCl 25 mg 03/02/19 11:57 03/04/19 20:30 Benadryl PO 25 mg Q6H PRN Administration Itching Enoxaparin Sodium 40 mg 03/01/19 09:00 03/06/19 08:22 Lovenox SC 40 mg 0900 KERRY Administration Famotidine 20 mg 02/28/19 21:00 03/06/19 08:20 Pepcid PO 20 mg BID KERRY Administration Hydralazine HCl 10 mg 03/05/19 09:39 03/05/19 20:28 Apresoline SLOW IVP 10 mg Q4H PRN Administration SBP>170, DBP>100 Hydroxyzine HCl 25 mg 02/28/19 20:31 03/05/19 17:40 Atarax PO 25 mg Q6H PRN Administration Itching Sodium Chloride 1,000 mls @ 75 mls/hr 03/03/19 11:02 03/06/19 05:41 Normal Saline 0.9% IV 1,000 mls .[id number] KERRY Administration Vancomycin HCl 1.5 gm/ Sodium 300 mls @ 200 mls/hr 03/05/19 09:00 03/06/19 12 :23 Chloride IVPB 300 mls 0100,0900,1700 KERRY Administration Morphine Sulfate 4 mg 02/28/19 20:47 03/06/19 11:01 Morphine SLOW IVP 4 mg Q4H PRN Administration Breakthrough Pain Nystatin 0 gm 03/01/19 09:00 03/06/19 08:21 Mycostatin Ointment TOP 1 applic BID KERRY Administration Pantoprazole Sodium 40 mg 03/05/19 09:00 03/06/19 08:20 Protonix PO 40 mg DAILY KERRY Administration Prednisone 60 mg 03/01/19 08:00 03/06/19 08:19 Prednisone PO 60 mg QAM-WM KERRY Administration Sertraline HCl 50 mg 03/01/19 21:00 03/05/19 20:28 Zoloft PO 50 mg HS KERRY Administration Triamcinolone Acetonide 0 gm 03/01/19 09:00 03/06/19 08:21 Kenalog 0.1% Ointment TOP 1 applic BID KERRY Administration Zinc Sulfate 220 mg 03/05/19 09:00 03/06/19 08:22 Zinc Sulfate PO Not Given DAILY KERRY - Exam General - other findings: Morbid obesity Eye: anicteric sclera ENT: moist mucosa Neck: supple, symmetric Heart: RRR Respiratory: CTAB Gastrointestinal: soft, non-tender Extremities: no clubbing Skin - other findings: rash as documented Psychiatric: normal affect, normal behavior Hosp A/P (1) MRSA bacteremia Code(s): R78.81 - BACTEREMIA Status: Acute (2) Pemphigus foliaceous Code(s): L10.2 - PEMPHIGUS FOLIACEOUS Status: Acute (3) Morbid obesity Code(s): E66.01 - MORBID (SEVERE) OBESITY DUE TO EXCESS CALORIES Status: Chronic (4) HTN (hypertension) Code(s): I10 - ESSENTIAL (PRIMARY) HYPERTENSION Status: Chronic - Plan continue antibiotics, out of bed/ambulate Continue vancomycin. HTN controlled. Pt to get cathflo (no blood return from PICC).
[2019-03-06] MEDS: diphenhydrAMINE 25 MG CAP PO PRN (20:07)
[2019-03-07] MEDS: hydrOXYzine 25 MG TAB PO PRN ×2 (00:34→08:36)
[2019-03-07] MEDS: Vancomycin HCl 1.5 GM in Sodium Chloride 0.9% 250 ML 300 ML IVPB SCH ×2 (00:34→08:39)
[2019-03-07] MEDS: Sodium Chloride 0.9% 1,000 ML IV SCH ×2 (04:50→20:06)
[2019-03-07] MEDS: diphenhydrAMINE 25 MG CAP PO PRN ×2 (04:51→22:29)
[2019-03-07] MEDS: Enoxaparin Sodium 40 MG/0.4 ML SYRINGE SC SCH (08:33)
[2019-03-07] MEDS: HYDROcodone/Acetaminophen 7.5/325 mg Tablet PO PRN ×3 (08:34→20:01)
[2019-03-07] MEDS: Zinc Sulfate 220 MG CAP PO SCH (08:34)
[2019-03-07] MEDS: predniSONE 20 MG TAB PO SCH (08:35)
[2019-03-07] MEDS: Amlodipine 10 MG TAB PO SCH (08:36)
[2019-03-07] MEDS: Famotidine 20 MG TAB PO SCH ×2 (08:36→20:03)
[2019-03-07] MEDS: Ascorbic Acid 500 mg Chewable Tablet PO SCH (08:36)
[2019-03-07] MEDS: Nystatin Ointment 15 GM TUBE TOP SCH ×2 (10:53→20:04)
--- NOTE | 2019-03-07 15:01 | PDOC.HOSPP ---
- Subjective Encounter Date: 03/07/19 Encounter Time: 09:00 Subjective: Pt seen for followup re: bacteremia. c/o burning sensation all over her body. - Objective Vital Signs & Weight: Vital Signs (12 hours) Temp Pulse Resp BP BP BP Pulse Ox 03/07/19 11:54 98.1 F 157/90 H 03/07/19 08:36 84 160/86 H 03/07/19 08:15 98.4 F 84 16 160/86 H 96 Weight Admit Weight 329 lb 11.2 oz Weight 329 lb 11.2 oz I&O: 03/06/19 03/07/19 03/08/19 06:59 06:59 06:59 Intake Total 550 1860 Balance 550 1860 Result Diagrams: 03/05/19 07:51 03/05/19 07:51 Additional Labs: Labs and MARs reviewed by me. Hospitalist ROS - Review of Systems Constitutional: denies: fever, chills, sweats, weakness, malaise Genitourinary: denies: dysuria, frequency, incontinence, hematuria, retention Musculoskeletal: reports: neck pain, shoulder pain, arm pain, back pain, hand pain, leg pain Skin: reports: lesions - Medication Medications: Active Medications Generic Name Dose Route Start Last Admin Trade Name Freq PRN Reason Stop Dose Admin Hydrocodone Bitart/Acetaminophen 2 tab 02/28/19 18:57 03/07/19 13:20 [place] 7.5/325 PO 2 tab Q4H PRN Administration Severe Pain (7-10) Amlodipine Besylate 10 mg 03/06/19 09:00 03/07/19 08:36 Norvasc PO 10 mg DAILY KERRY Administration Ascorbic Acid 500 mg 03/05/19 09:00 03/07/19 08:36 Vitamin C PO 500 mg DAILY KERRY Administration Diphenhydramine HCl 25 mg 03/02/19 11:57 03/07/19 04:51 Benadryl PO 25 mg Q6H PRN Administration Itching Enoxaparin Sodium 40 mg 03/01/19 09:00 03/07/19 08:33 Lovenox SC 40 mg 0900 KERRY Administration Famotidine 20 mg 02/28/19 21:00 03/07/19 08:36 Pepcid PO 20 mg BID KERRY Administration Hydralazine HCl 10 mg 03/05/19 09:39 03/05/19 20:28 Apresoline SLOW IVP 10 mg Q4H PRN Administration SBP>170, DBP>100 Hydroxyzine HCl 25 mg 02/28/19 20:31 03/07/19 08:36 Atarax PO 25 mg Q6H PRN Administration Itching Sodium Chloride 1,000 mls @ 75 mls/hr 03/03/19 11:02 03/07/19 04:50 Normal Saline 0.9% IV 1,000 mls .[id number] KERRY Administration Vancomycin HCl 1.5 gm/ Sodium 300 mls @ 200 mls/hr 03/05/19 09:00 03/07/19 08 :39 Chloride IVPB 03/07/19 18:00 300 mls 0100,0900,1700 KERRY Administration Morphine Sulfate 4 mg 02/28/19 20:47 03/06/19 22:49 Morphine SLOW IVP 4 mg Q4H PRN Administration Breakthrough Pain Nystatin 0 gm 03/01/19 09:00 03/07/19 10:53 Mycostatin Ointment TOP 1 applic BID KERRY Administration Pantoprazole Sodium 40 mg 03/05/19 09:00 03/07/19 08:36 Protonix PO 40 mg DAILY KERRY Administration Prednisone 60 mg 03/01/19 08:00 03/07/19 08:35 Prednisone PO 60 mg QAM-WM KERRY Administration Sertraline HCl 50 mg 03/01/19 21:00 03/06/19 20:07 Zoloft PO 50 mg HS KERRY Administration Triamcinolone Acetonide 0 gm 03/01/19 09:00 03/07/19 08:40 Kenalog 0.1% Ointment TOP 1 applic BID KERRY Administration Zinc Sulfate 220 mg 03/05/19 09:00 03/07/19 08:34 Zinc Sulfate PO 220 mg DAILY KERRY Administration - Exam General - other findings: Morbid obesity Eye: anicteric sclera ENT: moist mucosa Neck: supple Heart: RRR Respiratory: CTAB, no rales Gastrointestinal: soft, non-tender Skin - other findings: lesions as documented Psychiatric: normal affect Hosp A/P (1) MRSA bacteremia Code(s): R78.81 - BACTEREMIA Status: Acute (2) Pemphigus foliaceous Code(s): L10.2 - PEMPHIGUS FOLIACEOUS Status: Acute (3) Morbid obesity Code(s): E66.01 - MORBID (SEVERE) OBESITY DUE TO EXCESS CALORIES Status: Chronic (4) HTN (hypertension) Code(s): I10 - ESSENTIAL (PRIMARY) HYPERTENSION Status: Chronic - Plan continue antibiotics, out of bed/ambulate Pt is on IV vancomycin, will continue. HTN controlled. ? PICC malfunction
[2019-03-07] MEDS: Morphine 4 MG/ML VIAL SLOW IVP PRN (15:54)
[2019-03-07 16:21] LABS: Vancomycin, Trough 13.3 ug/mL
[2019-03-07] MEDS: Vancomycin HCl 1.75 GM in Sodium Chloride 0.9% 500 ML IVPB SCH (17:57)
[2019-03-08] MEDS: Morphine 4 MG/ML VIAL SLOW IVP PRN ×2 (00:20→16:04)
[2019-03-08] MEDS ORDERED: Vancomycin 1.5 GRAM/300 ML BAG 1.5 GM in Premix Bag 1 BAG IVPB SCH (01:00)
[2019-03-08] MEDS: Vancomycin HCl 1.75 GM in Sodium Chloride 0.9% 500 ML IVPB SCH ×3 (01:23→18:38)
[2019-03-08] MEDS: HYDROcodone/Acetaminophen 7.5/325 mg Tablet PO PRN ×3 (06:12→21:21)
[2019-03-08] MEDS: Zinc Sulfate 220 MG CAP PO SCH (08:24)
[2019-03-08] MEDS: predniSONE 20 MG TAB PO SCH (08:25)
[2019-03-08] MEDS: Amlodipine 10 MG TAB PO SCH (08:25)
[2019-03-08] MEDS: Ascorbic Acid 500 mg Chewable Tablet PO SCH (08:25)
[2019-03-08] MEDS: Enoxaparin Sodium 40 MG/0.4 ML SYRINGE SC SCH (08:26)
[2019-03-08] MEDS: Famotidine 20 MG TAB PO SCH ×2 (08:26→21:19)
[2019-03-08] MEDS: Nystatin Ointment 15 GM TUBE TOP SCH ×2 (08:27→21:20)
[2019-03-08] MEDS ORDERED: Ketorolac Tromethamine 30 MG/ML VIAL IVP SCH (10:15)
[2019-03-08] MEDS: hydrOXYzine 25 MG TAB PO PRN (14:20)
[2019-03-08 16:55] LABS: Vancomycin, Trough 20.6 ug/mL
--- NOTE | 2019-03-08 17:11 | PRG ---
DATE OF SERVICE: 03/08/2019 SUBJECTIVE: Sitting by the bedside. Still having the same issues with her burning skin and the lesions causing her to feel uncomfortable pretty much 24 hours a day. No dyspnea or cough. She is voiding by herself. No diarrhea. OBJECTIVE: VITAL SIGNS: Temperature is normal, BP 170/72, pulse 78. SKIN: Lesions are pretty much unchanged. LUNGS: Clear. HEART: S1 and S2, regular rate. ABDOMEN: Soft, not distended. EXTREMITIES: Moves extremities equally. LABORATORY DATA: White cell count 9.2, hemoglobin 9.7, platelets 425. ASSESSMENT AND DISCUSSION: Her PICC line probably has fibrous plug at the end and is working as a valve mechanism and not allowing withdrawal of blood. We will ask the nurse to apply Cathflo and see if we can improve that process and avoid having sticker for blood draws. We would need to repeat blood cultures to verify resolution of bacteremia and that will ideally be drawn from the central line. I would recommend trying immunoglobulin, which seems to have helped in previous cases of refractory pemphigus foliaceus and another approach would be to give minocycline. We will start her on minocycline 100 mg b.i.d. and she does not have insurance, so it would be a problem in administering expensive drugs such as immunoglobulin. Job ID: [id number]
[2019-03-08] MEDS: Vancomycin 1.5 GRAM/300 ML BAG 1.5 GM in Premix Bag 1 BAG IVPB SCH (17:54)
[2019-03-08] MEDS: Sodium Chloride 0.9% 1,000 ML IV SCH (18:39)
--- NOTE | 2019-03-08 18:52 | PDOC.HOSPP ---
- Subjective Encounter Date: 03/08/19 Encounter Time: 14:00 Subjective: Pt seen for followup re: bacteremia. No significant change since yesterday. - Objective Vital Signs & Weight: Vital Signs (12 hours) Temp Pulse Resp BP BP Pulse Ox 03/08/19 08:50 96 03/08/19 08:25 78 170/72 H 03/08/19 08:00 98.1 F 78 20 170/72 H 96 Weight Admit Weight 329 lb 11.2 oz Weight 329 lb 11.2 oz I&O: 03/07/19 03/08/19 03/09/19 06:59 06:59 06:59 Intake Total 1860 4875 Balance 1860 4875 Result Diagrams: 03/05/19 07:51 03/05/19 07:51 Additional Labs: Labs and MARs reviewed by mi Hospitalist ROS - Review of Systems Gastrointestinal: denies: nausea, vomiting, abdominal pain, diarrhea, constipation, melena, hematochezia Genitourinary: denies: dysuria, frequency, incontinence, hematuria, retention Skin: reports: lesions - Medication Medications: Active Medications Generic Name Dose Route Start Last Admin Trade Name Freq PRN Reason Stop Dose Admin Hydrocodone Bitart/Acetaminophen 2 tab 02/28/19 18:57 03/08/19 14:17 [place] 7.5/325 PO 2 tab Q4H PRN Administration Severe Pain (7-10) Amlodipine Besylate 10 mg 03/06/19 09:00 03/08/19 08:25 Norvasc PO 10 mg DAILY KERRY Administration Ascorbic Acid 500 mg 03/05/19 09:00 03/08/19 08:25 Vitamin C PO 500 mg DAILY KERRY Administration Diphenhydramine HCl 25 mg 03/02/19 11:57 03/07/19 22:29 Benadryl PO 25 mg Q6H PRN Administration Itching Enoxaparin Sodium 40 mg 03/01/19 09:00 03/08/19 08:26 Lovenox SC 40 mg 0900 KERRY Administration Famotidine 20 mg 02/28/19 21:00 03/08/19 08:26 Pepcid PO 20 mg BID KERRY Administration Hydralazine HCl 10 mg 03/05/19 09:39 03/05/19 20:28 Apresoline SLOW IVP 10 mg Q4H PRN Administration SBP>170, DBP>100 Hydroxyzine HCl 25 mg 02/28/19 20:31 03/08/19 14:20 Atarax PO 25 mg Q6H PRN Administration Itching Sodium Chloride 1,000 mls @ 75 mls/hr 03/03/19 11:02 03/08/19 18:39 Normal Saline 0.9% IV 1,000 mls .[id number] KERRY Administration Vancomycin HCl 1.5 gm/ Device 300 mls @ 200 mls/hr 03/08/19 17:00 03/08/19 17 :54 IVPB 300 mls 0100,0900,1700 KERRY Administration Morphine Sulfate 4 mg 02/28/19 20:47 03/08/19 16:04 Morphine SLOW IVP 4 mg Q4H PRN Administration Breakthrough Pain Nystatin 0 gm 03/01/19 09:00 03/08/19 08:27 Mycostatin Ointment TOP 1 applic BID KERRY Administration Pantoprazole Sodium 40 mg 03/05/19 09:00 03/08/19 08:28 Protonix PO 40 mg DAILY KERRY Administration Prednisone 60 mg 03/01/19 08:00 03/08/19 08:25 Prednisone PO 60 mg QAM-WM KERRY Administration Sertraline HCl 50 mg 03/01/19 21:00 03/07/19 20:03 Zoloft PO 50 mg HS KERRY Administration Triamcinolone Acetonide 0 gm 03/01/19 09:00 03/08/19 08:27 Kenalog 0.1% Ointment TOP 1 applic BID KERRY Administration Zinc Sulfate 220 mg 03/05/19 09:00 03/08/19 08:24 Zinc Sulfate PO 220 mg DAILY KERRY Administration - Exam General - other findings: Morbid obese Eye: anicteric sclera ENT: normocephalic atraumatic, no oropharyngeal lesions Neck: supple, no thyromegaly Heart: RRR Respiratory: CTAB Gastrointestinal: soft, non-tender Psychiatric: normal behavior, lethargic Hosp A/P (1) MRSA bacteremia Code(s): R78.81 - BACTEREMIA Status: Acute (2) Pemphigus foliaceous Code(s): L10.2 - PEMPHIGUS FOLIACEOUS Status: Acute (3) Morbid obesity Code(s): E66.01 - MORBID (SEVERE) OBESITY DUE TO EXCESS CALORIES Status: Chronic (4) HTN (hypertension) Code(s): I10 - ESSENTIAL (PRIMARY) HYPERTENSION Status: Chronic - Plan Continue IV vancomycin. HTN controlled. May need PICC replacement or alternate way for blood draws for labs.
[2019-03-08] MEDS: Minocycline HCl 50 MG CAP PO SCH (21:20)
[2019-03-09] MEDS ORDERED: Activase 2 MG VIAL CATH SCH (00:45)
[2019-03-09] MEDS: Vancomycin 1.5 GRAM/300 ML BAG 1.5 GM in Premix Bag 1 BAG IVPB SCH ×3 (00:56→16:39)
[2019-03-09] MEDS ORDERED: Sterile Water 10 ML VIAL IVP SCH (01:00)
[2019-03-09] MEDS: Sodium Chloride 0.9% 1,000 ML IV SCH ×3 (01:09→16:39)
[2019-03-09] MEDS: Morphine 4 MG/ML VIAL SLOW IVP PRN ×2 (01:30→12:06)
[2019-03-09] MEDS: predniSONE 20 MG TAB PO SCH (09:35)
[2019-03-09] MEDS: Zinc Sulfate 220 MG CAP PO SCH (09:36)
[2019-03-09] MEDS: Ascorbic Acid 500 mg Chewable Tablet PO SCH (09:36)
[2019-03-09] MEDS: HYDROcodone/Acetaminophen 7.5/325 mg Tablet PO PRN ×3 (09:36→22:41)
[2019-03-09] MEDS: Minocycline HCl 50 MG CAP PO SCH ×2 (09:36→20:30)
[2019-03-09] MEDS: Amlodipine 10 MG TAB PO SCH (09:36)
[2019-03-09] MEDS: Enoxaparin Sodium 40 MG/0.4 ML SYRINGE SC SCH (09:38)
[2019-03-09] MEDS: Famotidine 20 MG TAB PO SCH ×2 (09:39→20:30)
[2019-03-09] MEDS: Nystatin Ointment 15 GM TUBE TOP SCH ×2 (11:26→20:30)
[2019-03-09] MEDS: diphenhydrAMINE 25 MG CAP PO PRN ×2 (15:11→22:42)
--- NOTE | 2019-03-09 16:15 | PDOC.HOSPP ---
- Subjective Encounter Date: 03/09/19 Encounter Time: 09:20 Subjective: Pt seen for followup re: bacteremia. c/o pain all over body. - Objective Vital Signs & Weight: Vital Signs (12 hours) Temp Pulse Resp BP BP Pulse Ox 03/09/19 09:36 92 160/86 H 03/09/19 08:00 97.9 F 92 20 160/86 H 98 Weight Admit Weight 329 lb 11.2 oz Weight 329 lb 11.2 oz I&O: 03/08/19 03/09/19 03/10/19 06:59 06:59 06:59 Intake Total 4875 1545 Balance 4875 1545 Result Diagrams: 03/05/19 07:51 03/05/19 07:51 Additional Labs: Labs and MARs reviewed by [facility] Hospitalist ROS - Review of Systems Constitutional: denies: fever, chills, sweats, weakness, malaise Genitourinary: denies: dysuria, frequency, incontinence, hematuria, retention Skin: reports: lesions - Medication Medications: Active Medications Generic Name Dose Route Start Last Admin Trade Name Freq PRN Reason Stop Dose Admin Hydrocodone Bitart/Acetaminophen 2 tab 02/28/19 18:57 03/09/19 09:36 [place] 7.5/325 PO 2 tab Q4H PRN Administration Severe Pain (7-10) Amlodipine Besylate 10 mg 03/06/19 09:00 03/09/19 09:36 Norvasc PO 10 mg DAILY KERRY Administration Ascorbic Acid 500 mg 03/05/19 09:00 03/09/19 09:36 Vitamin C PO 500 mg DAILY KERRY Administration Diphenhydramine HCl 25 mg 03/02/19 11:57 03/09/19 15:11 Benadryl PO 25 mg Q6H PRN Administration Itching Enoxaparin Sodium 40 mg 03/01/19 09:00 03/09/19 09:38 Lovenox SC 40 mg 0900 KERRY Administration Famotidine 20 mg 02/28/19 21:00 03/09/19 09:39 Pepcid PO 20 mg BID KERRY Administration Hydralazine HCl 10 mg 03/05/19 09:39 03/05/19 20:28 Apresoline SLOW IVP 10 mg Q4H PRN Administration SBP>170, DBP>100 Hydroxyzine HCl 25 mg 02/28/19 20:31 03/08/19 14:20 Atarax PO 25 mg Q6H PRN Administration Itching Sodium Chloride 1,000 mls @ 75 mls/hr 03/03/19 11:02 03/09/19 15:13 Normal Saline 0.9% IV 1,000 mls .[id number] KERRY Administration Vancomycin HCl 1.5 gm/ Device 300 mls @ 200 mls/hr 03/08/19 17:00 03/09/19 09 :23 IVPB 300 mls 0100,0900,1700 KERRY Administration Minocycline HCl 100 mg 03/08/19 21:00 03/09/19 09:36 Minocycline Hcl PO 100 mg BID KERRY Administration Morphine Sulfate 4 mg 02/28/19 20:47 03/09/19 12:06 Morphine SLOW IVP 4 mg Q4H PRN Administration Breakthrough Pain Nystatin 0 gm 03/01/19 09:00 03/09/19 11:26 Mycostatin Ointment TOP 1 applic BID KERRY Administration Pantoprazole Sodium 40 mg 03/05/19 09:00 03/09/19 09:36 Protonix PO 40 mg DAILY KERRY Administration Prednisone 60 mg 03/01/19 08:00 03/09/19 09:35 Prednisone PO 60 mg QAM-WM KERRY Administration Sertraline HCl 50 mg 03/01/19 21:00 03/08/19 21:20 Zoloft PO 50 mg HS KERRY Administration Triamcinolone Acetonide 0 gm 03/01/19 09:00 03/09/19 09:38 Kenalog 0.1% Ointment TOP 1 applic BID KERRY Administration Zinc Sulfate 220 mg 03/05/19 09:00 03/09/19 09:36 Zinc Sulfate PO 220 mg DAILY KERRY Administration - Exam General - other findings: Morbid obesity Eye: anicteric sclera ENT: moist mucosa Neck: supple Heart: RRR Respiratory: CTAB Gastrointestinal: soft Skin - other findings: lesions as documented Psychiatric: normal affect, normal behavior Hosp A/P (1) MRSA bacteremia Code(s): R78.81 - BACTEREMIA Status: Acute (2) Pemphigus foliaceous Code(s): L10.2 - PEMPHIGUS FOLIACEOUS Status: Acute (3) Morbid obesity Code(s): E66.01 - MORBID (SEVERE) OBESITY DUE TO EXCESS CALORIES Status: Chronic (4) HTN (hypertension) Code(s): I10 - ESSENTIAL (PRIMARY) HYPERTENSION Status: Chronic - Plan continue antibiotics, out of bed/ambulate Will continue IV vancomycin. HTN controlled. PICC working after cathflo.
[2019-03-10] MEDS: Vancomycin 1.5 GRAM/300 ML BAG 1.5 GM in Premix Bag 1 BAG IVPB SCH ×3 (00:33→17:09)
[2019-03-10] MEDS: Morphine 4 MG/ML VIAL SLOW IVP PRN ×2 (02:18→17:10)
[2019-03-10] MEDS: Nystatin Ointment 15 GM TUBE TOP SCH ×2 (09:00→21:04)
[2019-03-10] MEDS: HYDROcodone/Acetaminophen 7.5/325 mg Tablet PO PRN ×3 (09:04→18:39)
[2019-03-10] MEDS: Amlodipine 10 MG TAB PO SCH (09:05)
[2019-03-10] MEDS: Ascorbic Acid 500 mg Chewable Tablet PO SCH (09:05)
[2019-03-10] MEDS: Zinc Sulfate 220 MG CAP PO SCH (09:05)
[2019-03-10] MEDS: Famotidine 20 MG TAB PO SCH ×2 (09:05→21:03)
[2019-03-10] MEDS: predniSONE 20 MG TAB PO SCH (09:06)
[2019-03-10] MEDS: Ondansetron PF 4 MG/2 ML Vial IVP PRN (09:39)
[2019-03-10] MEDS: Minocycline HCl 50 MG CAP PO SCH ×2 (09:39→21:01)
[2019-03-10] MEDS: Enoxaparin Sodium 40 MG/0.4 ML SYRINGE SC SCH (09:40)
[2019-03-10] MEDS ORDERED: Fioricet 325/50/40 mg Tablet PO PRN (10:36)
[2019-03-10] MEDS: Sodium Chloride 0.9% 1,000 ML IV SCH (13:50)
--- NOTE | 2019-03-10 20:10 | PDOC.HOSPP ---
- Subjective Encounter Date: 03/10/19 Encounter Time: 12:00 Subjective: Pt seen for followup re: bacteremia. Feels slightly better today. PICC line is working well. - Objective Vital Signs & Weight: Vital Signs (12 hours) Temp Pulse Resp BP Pulse Ox 03/10/19 19:28 98.3 F 94 20 154/81 H 92 L Weight Admit Weight 329 lb 11.2 oz Weight 329 lb 11.2 oz I&O: 03/09/19 03/10/19 03/11/19 06:59 06:59 06:59 Intake Total 1545 1735 Balance 1545 1735 Result Diagrams: 03/05/19 07:51 03/05/19 07:51 Additional Labs: Labs and MARs reviewed by tn Hospitalist ROS - Review of Systems Respiratory: denies: cough, shortness of breath, SOB with excertion, pleuritic pain, wheezing Cardiovascular: denies: chest pain, palpitations, orthopnea, paroxysmal noc. dyspnea, edema, light headedness - Medication Medications: Active Medications Generic Name Dose Route Start Last Admin Trade Name Freq PRN Reason Stop Dose Admin Amlodipine Besylate 10 mg 03/06/19 09:00 03/10/19 09:05 Norvasc PO 10 mg DAILY KERRY Administration Ascorbic Acid 500 mg 03/05/19 09:00 03/10/19 09:05 Vitamin C PO 500 mg DAILY KERRY Administration Diphenhydramine HCl 25 mg 03/02/19 11:57 03/09/19 22:42 Benadryl PO 25 mg Q6H PRN Administration Itching Enoxaparin Sodium 40 mg 03/01/19 09:00 03/10/19 09:40 Lovenox SC 40 mg 0900 KERRY Administration Famotidine 20 mg 02/28/19 21:00 03/10/19 09:05 Pepcid PO 20 mg BID KERRY Administration Hydralazine HCl 10 mg 03/05/19 09:39 03/05/19 20:28 Apresoline SLOW IVP 10 mg Q4H PRN Administration SBP>170, DBP>100 Hydroxyzine HCl 25 mg 02/28/19 20:31 03/08/19 14:20 Atarax PO 25 mg Q6H PRN Administration Itching Sodium Chloride 1,000 mls @ 75 mls/hr 03/03/19 11:02 03/10/19 13:50 Normal Saline 0.9% IV 1,000 mls .[id number] KERRY Administration Vancomycin HCl 1.5 gm/ Device 300 mls @ 200 mls/hr 03/08/19 17:00 03/10/19 17 :09 IVPB 300 mls 0100,0900,1700 KERRY Administration Minocycline HCl 100 mg 03/08/19 21:00 03/10/19 09:39 Minocycline Hcl PO 100 mg BID KERRY Administration Morphine Sulfate 4 mg 02/28/19 20:47 03/10/19 17:10 Morphine SLOW IVP 4 mg Q4H PRN Administration Breakthrough Pain Nystatin 0 gm 03/01/19 09:00 03/10/19 09:00 Mycostatin Ointment TOP Not Given BID KERRY Ondansetron HCl 4 mg 03/10/19 08:39 03/10/19 09:39 Zofran IVP 4 mg Q6H PRN Administration Nausea/Vomiting Pantoprazole Sodium 40 mg 03/05/19 09:00 03/10/19 09:05 Protonix PO 40 mg DAILY KERRY Administration Prednisone 60 mg 03/01/19 08:00 03/10/19 09:06 Prednisone PO 60 mg QAM-WM KERRY Administration Sertraline HCl 50 mg 03/01/19 21:00 03/09/19 20:30 Zoloft PO 50 mg HS KERRY Administration Triamcinolone Acetonide 0 gm 03/01/19 09:00 03/10/19 09:00 Kenalog 0.1% Ointment TOP Not Given BID KERRY Zinc Sulfate 220 mg 03/05/19 09:00 03/10/19 09:05 Zinc Sulfate PO 220 mg DAILY KERRY Administration - Exam General Appearance: NAD Eye: anicteric sclera ENT: moist mucosa Neck: supple Heart: no rubs Respiratory: CTAB Extremities: no clubbing Skin - other findings: lesions Psychiatric: normal affect Hosp A/P (1) MRSA bacteremia Code(s): R78.81 - BACTEREMIA Status: Acute (2) Pemphigus foliaceous Code(s): L10.2 - PEMPHIGUS FOLIACEOUS Status: Acute (3) Morbid obesity Code(s): E66.01 - MORBID (SEVERE) OBESITY DUE TO EXCESS CALORIES Status: Chronic (4) HTN (hypertension) Code(s): I10 - ESSENTIAL (PRIMARY) HYPERTENSION Status: Chronic - Plan continue antibiotics, PT/OT On IV vancomycin and minocycline HTN controlled. Increase Benadryl dose PRN. Continue [place] PRN.
[2019-03-10] MEDS: diphenhydrAMINE 25 MG CAP PO PRN (21:02)
[2019-03-10] MEDS: Ketorolac Tromethamine 30 MG/ML VIAL IVP PRN (21:57)
[2019-03-11] MEDS: Sodium Chloride 0.9% 1,000 ML IV SCH ×2 (02:22→05:50)
[2019-03-11] MEDS: Vancomycin 1.5 GRAM/300 ML BAG 1.5 GM in Premix Bag 1 BAG IVPB SCH ×3 (02:22→16:13)
[2019-03-11 05:41] LABS: #Eosinphils 0.4 thou/uL (0.0-0.7); #Lymphocytes 2.6 thou/uL (1.20-3.40); #Neutrophils 5.1 thou/uL (1.40-6.50); %Basophils 0.3 % (0.0-1.0); %Eosinophils 4.7 % (0.0-10.0); %Lymphocytes 28.3 % (21.0-51.0); %Neutrophils 55.7 % (42.0-75.0); Hemoglobin 9.3 g/dL (12.0-16.0); Mean Corpuscular HGB CONC 32.3 g/dL (32.0-36.0); Mean Corpuscular Hemoglobin 28.1 pg (27.0-31.0); Mean Corpuscular Volume 86.7 fL (78.0-98.0); Mean Platelet Volume 6.9 fL (7.4-10.4); Platelet Count 413 thou/uL (130-400); RBC Distribution Width 13.6 % (11.5-14.5); Red Blood Cell (RBC) Count 3.33 mill/uL (4.20-5.40); White Blood Cell (WBC) Count 9.1 thou/uL (4.8-10.8)
[2019-03-11] MEDS: HYDROcodone/Acetaminophen 7.5/325 mg Tablet PO PRN ×4 (05:51→18:49)
[2019-03-11 05:57] LABS: Anion Gap 10 mmol/L (10-20); BUN (Urea Nitrogen) 16 mg/dL (7.0-18.7); Calc. Creatinine Clearance 280 mL/min (70-130); Calcium 8.4 mg/dL (7.8-10.44); Carbon Dioxide 29 mmol/L (22-29); Chloride 105 mmol/L (98-107); Estimated GFR-MDRD Greater than 90; Glucose 108 mg/dL (70-105); Potassium 4.3 mmol/L (3.5-5.1); Sodium 140 mmol/L (136-145)
[2019-03-11] MEDS: Minocycline HCl 50 MG CAP PO SCH ×2 (08:31→20:44)
[2019-03-11] MEDS: Zinc Sulfate 220 MG CAP PO SCH (08:33)
[2019-03-11] MEDS: Amlodipine 10 MG TAB PO SCH (08:33)
[2019-03-11] MEDS: Ascorbic Acid 500 mg Chewable Tablet PO SCH (08:33)
[2019-03-11] MEDS: predniSONE 20 MG TAB PO SCH (08:33)
[2019-03-11] MEDS: Nystatin Ointment 15 GM TUBE TOP SCH ×2 (08:34→20:50)
[2019-03-11] MEDS: Famotidine 20 MG TAB PO SCH ×2 (08:34→20:44)
[2019-03-11] MEDS: Enoxaparin Sodium 40 MG/0.4 ML SYRINGE SC SCH (08:34)
[2019-03-11] MEDS: diphenhydrAMINE 25 MG CAP PO PRN (08:37)
[2019-03-11] MEDS: hydrOXYzine 10 MG TAB PO SCH ×2 (14:06→20:44)
--- NOTE | 2019-03-11 16:27 | PDOC.HOSPP ---
- Subjective Encounter Date: 03/11/19 Encounter Time: 09:40 Subjective: Pt seen for followup re: bacteremia. c/o itching. - Objective Vital Signs & Weight: Vital Signs (12 hours) Temp Pulse Resp BP Pulse Ox 03/11/19 11:57 98.4 F 98 20 151/85 H 98 03/11/19 08:27 98.1 F 93 18 142/81 H 98 Weight Admit Weight 329 lb 11.2 oz Weight 329 lb 11.2 oz I&O: 03/10/19 03/11/19 03/12/19 06:59 06:59 06:59 Intake Total 1735 Balance 1735 Result Diagrams: 03/11/19 05:25 03/11/19 05:25 Additional Labs: labs and MARs reviewed by nd Hospitalist ROS - Review of Systems Constitutional: reports: other (itching) Cardiovascular: denies: chest pain, palpitations, orthopnea, paroxysmal noc. dyspnea, edema, light headedness Gastrointestinal: denies: nausea, vomiting, abdominal pain, diarrhea, constipation, melena, hematochezia - Medication Medications: Active Medications Generic Name Dose Route Start Last Admin Trade Name Freq PRN Reason Stop Dose Admin Hydrocodone Bitart/Acetaminophen 2 tab 03/10/19 19:37 03/11/19 13:01 [place] 7.5/325 PO 2 tab Q4H PRN Administration Severe Pain (7-10) Amlodipine Besylate 10 mg 03/06/19 09:00 03/11/19 08:33 Norvasc PO 10 mg DAILY KERRY Administration Ascorbic Acid 500 mg 03/05/19 09:00 03/11/19 08:33 Vitamin C PO 500 mg DAILY KERRY Administration Diphenhydramine HCl 25 mg 03/02/19 11:57 03/11/19 08:37 Benadryl PO 25 mg Q6H PRN Administration Itching Enoxaparin Sodium 40 mg 03/01/19 09:00 03/11/19 08:34 Lovenox SC 40 mg 0900 KERRY Administration Famotidine 20 mg 02/28/19 21:00 03/11/19 08:34 Pepcid PO 20 mg BID KERRY Administration Hydralazine HCl 10 mg 03/05/19 09:39 03/05/19 20:28 Apresoline SLOW IVP 10 mg Q4H PRN Administration SBP>170, DBP>100 Hydroxyzine HCl 25 mg 02/28/19 20:31 03/08/19 14:20 Atarax PO 25 mg Q6H PRN Administration Itching Hydroxyzine HCl 10 mg 03/11/19 15:00 03/11/19 14:06 Atarax PO 10 mg TID KERRY Administration Sodium Chloride 1,000 mls @ 75 mls/hr 03/03/19 11:02 03/11/19 05:50 Normal Saline 0.9% IV Not Given .[id number] KERRY Vancomycin HCl 1.5 gm/ Device 300 mls @ 200 mls/hr 03/08/19 17:00 03/11/19 16 :13 IVPB 300 mls 0100,0900,1700 KERRY Administration Ketorolac Tromethamine 15 mg 03/08/19 18:00 03/10/19 21:57 Toradol IVP 03/13/19 18:01 15 mg Q8H PRN Administration Moderate Pain (4-6) Minocycline HCl 100 mg 03/08/19 21:00 03/11/19 08:31 Minocycline Hcl PO 100 mg BID KERRY Administration Nystatin 0 gm 03/01/19 09:00 03/11/19 08:34 Mycostatin Ointment TOP 1 applic BID KERRY Administration Ondansetron HCl 4 mg 03/10/19 08:39 03/10/19 09:39 Zofran IVP 4 mg Q6H PRN Administration Nausea/Vomiting Pantoprazole Sodium 40 mg 03/05/19 09:00 03/11/19 08:33 Protonix PO 40 mg DAILY KERRY Administration Prednisone 60 mg 03/01/19 08:00 03/11/19 08:33 Prednisone PO 60 mg QAM-WM KERRY Administration Sertraline HCl 50 mg 03/01/19 21:00 03/10/19 23:16 Zoloft PO 50 mg HS KERRY Administration Sodium Chloride 10 ml 02/28/19 18:57 03/11/19 08:34 Flush - Normal Saline IVF 10 ml PRN PRN Administration Saline Flush Triamcinolone Acetonide 0 gm 03/01/19 09:00 03/11/19 08:35 Kenalog 0.1% Ointment TOP 1 applic BID KERRY Administration Zinc Sulfate 220 mg 03/05/19 09:00 03/11/19 08:33 Zinc Sulfate PO 220 mg DAILY KERRY Administration - Exam General Appearance: awake alert Eye: anicteric sclera ENT: moist mucosa Neck: supple Heart: RRR Respiratory: CTAB Gastrointestinal: soft Skin - other findings: skin lesions Psychiatric: normal affect Hosp A/P (1) MRSA bacteremia Code(s): R78.81 - BACTEREMIA Status: Acute (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 Continue IV vancomycin and minocycline HTN controlled. Continue PRN [place].
[2019-03-11] MEDS: Ketorolac Tromethamine 30 MG/ML VIAL IVP PRN (21:47)
[2019-03-12] MEDS: Vancomycin 1.5 GRAM/300 ML BAG 1.5 GM in Premix Bag 1 BAG IVPB SCH ×3 (01:30→16:45)
[2019-03-12] MEDS: Sodium Chloride 0.9% 1,000 ML IV SCH ×3 (01:31→22:33)
[2019-03-12 05:38] LABS: #Basophils 0.1 thou/uL (0.0-0.2); #Eosinphils 0.3 thou/uL (0.0-0.7); #Lymphocytes 2.7 thou/uL (1.20-3.40); #Monocytes 0.9 thou/uL (0.11-0.59); #Neutrophils 4.9 thou/uL (1.40-6.50); %Basophils 0.7 % (0.0-1.0); %Eosinophils 3.8 % (0.0-10.0); %Lymphocytes 30.8 % (21.0-51.0); %Monocytes 9.7 % (0.0-10.0); %Neutrophils 55.1 % (42.0-75.0); Hemoglobin 9.1 g/dL (12.0-16.0); Mean Corpuscular HGB CONC 32.3 g/dL (32.0-36.0); Mean Corpuscular Volume 86.7 fL (78.0-98.0); Platelet Count 410 thou/uL (130-400); RBC Distribution Width 13.6 % (11.5-14.5); Red Blood Cell (RBC) Count 3.26 mill/uL (4.20-5.40); White Blood Cell (WBC) Count 8.9 thou/uL (4.8-10.8)
[2019-03-12 05:59] LABS: Anion Gap 12 mmol/L (10-20); BUN (Urea Nitrogen) 16 mg/dL (7.0-18.7); Calc. Creatinine Clearance 304 mL/min (70-130); Calcium 8.7 mg/dL (7.8-10.44); Carbon Dioxide 28 mmol/L (22-29); Chloride 104 mmol/L (98-107); Estimated GFR-MDRD Greater than 90; Glucose 103 mg/dL (70-105); Potassium 3.9 mmol/L (3.5-5.1); Sodium 140 mmol/L (136-145)
[2019-03-12] MEDS: HYDROcodone/Acetaminophen 7.5/325 mg Tablet PO PRN ×4 (08:33→22:59)
[2019-03-12] MEDS: predniSONE 20 MG TAB PO SCH (08:33)
[2019-03-12] MEDS: Famotidine 20 MG TAB PO SCH ×2 (08:35→20:42)
[2019-03-12] MEDS: Amlodipine 10 MG TAB PO SCH (08:35)
[2019-03-12] MEDS: Minocycline HCl 50 MG CAP PO SCH ×2 (08:35→20:42)
[2019-03-12] MEDS: hydrOXYzine 10 MG TAB PO SCH ×3 (08:36→20:41)
[2019-03-12] MEDS: Ascorbic Acid 500 mg Chewable Tablet PO SCH (08:36)
[2019-03-12] MEDS: Zinc Sulfate 220 MG CAP PO SCH (08:36)
[2019-03-12] MEDS: Nystatin Ointment 15 GM TUBE TOP SCH ×2 (08:37→20:44)
[2019-03-12] MEDS: Enoxaparin Sodium 40 MG/0.4 ML SYRINGE SC SCH (09:02)
--- NOTE | 2019-03-12 15:45 | PDOC.HOSPP ---
- Subjective Encounter Date: 03/12/19 Encounter Time: 10:20 Subjective: Pt seen for followup re: MRSA bacteremia. Feels slightly better. - Objective Vital Signs & Weight: Vital Signs (12 hours) Temp Pulse Resp BP BP Pulse Ox 03/12/19 08:35 91 151/83 H 03/12/19 08:00 98 03/12/19 07:41 97.7 F 91 20 151/83 H 98 Weight Admit Weight 329 lb 11.2 oz Weight 329 lb 11.2 oz I&O: 03/11/19 03/12/19 03/13/19 06:59 06:59 06:59 Intake Total 900 Output Total 200 Balance 700 Result Diagrams: 03/12/19 05:00 03/12/19 05:00 Additional Labs: Labs and MARs reviewed by me. Hospitalist ROS - Review of Systems Constitutional: denies: fever, chills, sweats, weakness, malaise Genitourinary: denies: dysuria, frequency, incontinence, hematuria, retention Skin: reports: lesions - Medication Medications: Active Medications Generic Name Dose Route Start Last Admin Trade Name Freq PRN Reason Stop Dose Admin Hydrocodone Bitart/Acetaminophen 2 tab 03/10/19 19:37 03/12/19 12:46 [place] 7.5/325 PO 2 tab Q4H PRN Administration Severe Pain (7-10) Amlodipine Besylate 10 mg 03/06/19 09:00 03/12/19 08:35 Norvasc PO 10 mg DAILY KERRY Administration Ascorbic Acid 500 mg 03/05/19 09:00 03/12/19 08:36 Vitamin C PO 500 mg DAILY KERRY Administration Diphenhydramine HCl 25 mg 03/02/19 11:57 03/11/19 08:37 Benadryl PO 25 mg Q6H PRN Administration Itching Enoxaparin Sodium 40 mg 03/01/19 09:00 03/12/19 09:02 Lovenox SC 40 mg 0900 KERRY Administration Famotidine 20 mg 02/28/19 21:00 03/12/19 08:35 Pepcid PO 20 mg BID KERRY Administration Hydralazine HCl 10 mg 03/05/19 09:39 03/05/19 20:28 Apresoline SLOW IVP 10 mg Q4H PRN Administration SBP>170, DBP>100 Hydroxyzine HCl 25 mg 02/28/19 20:31 03/08/19 14:20 Atarax PO 25 mg Q6H PRN Administration Itching Hydroxyzine HCl 10 mg 03/11/19 15:00 03/12/19 14:49 Atarax PO 10 mg TID KERRY Administration Sodium Chloride 1,000 mls @ 75 mls/hr 03/03/19 11:02 03/12/19 09:06 Normal Saline 0.9% IV Not Given .[id number] KERRY Vancomycin HCl 1.5 gm/ Device 300 mls @ 200 mls/hr 03/08/19 17:00 03/12/19 08 :36 IVPB 300 mls 0100,0900,1700 KERRY Administration Ketorolac Tromethamine 15 mg 03/08/19 18:00 03/11/19 21:47 Toradol IVP 03/13/19 18:01 15 mg Q8H PRN Administration Moderate Pain (4-6) Minocycline HCl 100 mg 03/08/19 21:00 03/12/19 08:35 Minocycline Hcl PO 100 mg BID KERRY Administration Nystatin 0 gm 03/01/19 09:00 03/12/19 08:37 Mycostatin Ointment TOP 1 applic BID KERRY Administration Ondansetron HCl 4 mg 03/10/19 08:39 03/10/19 09:39 Zofran IVP 4 mg Q6H PRN Administration Nausea/Vomiting Pantoprazole Sodium 40 mg 03/05/19 09:00 03/12/19 08:35 Protonix PO 40 mg DAILY KERRY Administration Prednisone 60 mg 03/01/19 08:00 03/12/19 08:33 Prednisone PO 60 mg QAM-WM KERRY Administration Sertraline HCl 50 mg 03/01/19 21:00 03/11/19 20:44 Zoloft PO 50 mg HS KERRY Administration Sodium Chloride 10 ml 02/28/19 18:57 03/11/19 08:34 Flush - Normal Saline IVF 10 ml PRN PRN Administration Saline Flush Triamcinolone Acetonide 0 gm 03/01/19 09:00 03/12/19 08:37 Kenal[place] 0.1% Ointment TOP 1 applic BID KERRY Administration Zinc Sulfate 220 mg 03/05/19 09:00 03/12/19 08:36 Zinc Sulfate PO 220 mg DAILY KERRY Administration - Exam General - other findings: [place] obese Eye: anicteric sclera ENT: no oropharyngeal lesions, moist mucosa Neck: supple Heart: RRR, no rubs Respiratory: CTAB Gastrointestinal: soft Skin - other findings: lesions as documented Musculoskeletal: no muscle wasting Psychiatric: normal affect, normal behavior Hosp A/P (1) MRSA bacteremia Code(s): R78.81 - BACTEREMIA Status: Acute (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 Pt is on IV vancomycin and minocycline HTN controlled. PRN [place] for pain.
[2019-03-12] MEDS ORDERED: Clopidogrel Bisulfate 75 MG TAB ONE (15:49)
--- NOTE | 2019-03-12 17:06 | PRG ---
DATE OF SERVICE: 03/12/2019 SUBJECTIVE: Still with the skin in certain areas bothering her, but overall there is some improvement. No respiratory symptoms or diarrhea. OBJECTIVE: VITAL SIGNS: She has been afebrile. HEENT: Ocular movements conjugate. HEART: S1 and S2, regular rate. ABDOMEN: Soft. LUNGS: Clear. SKIN: Some improvement. I see less active lesions overall. Creatinine is okay. LABORATORY DATA: White cell count is 8.9, hemoglobin 9.1. The cultures as reviewed before. The PICC line is working now for withdrawal of blood. 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 I have added minocycline now and immunoglobulin could be tried. In addition, the patient has MRSA bacteremia and is receiving treatment, which will need for at least for 4 total weeks from the onset of vancomycin, she will have a PICC line. Awaiting on the stabilization or clinical course to arrange for treatment in the outpatient setting. The absence of insurance would hinder discharge planning. Job ID: [id number]
[2019-03-12] MEDS: Ketorolac Tromethamine 30 MG/ML VIAL IVP PRN (20:42)
[2019-03-13] MEDS: Vancomycin 1.5 GRAM/300 ML BAG 1.5 GM in Premix Bag 1 BAG IVPB SCH ×3 (01:19→16:14)
[2019-03-13 08:49] LABS: #Eosinphils 0.3 thou/uL (0.0-0.7); #Lymphocytes 3.3 thou/uL (1.20-3.40); #Neutrophils 5.6 thou/uL (1.40-6.50); %Basophils 0.1 % (0.0-1.0); %Eosinophils 3.1 % (0.0-10.0); %Lymphocytes 31.9 % (21.0-51.0); %Monocytes 10.1 % (0.0-10.0); %Neutrophils 54.8 % (42.0-75.0); Hemoglobin 9.3 g/dL (12.0-16.0); Mean Corpuscular HGB CONC 32.2 g/dL (32.0-36.0); Mean Corpuscular Hemoglobin 27.9 pg (27.0-31.0); Mean Corpuscular Volume 86.7 fL (78.0-98.0); Mean Platelet Volume 7.3 fL (7.4-10.4); Platelet Count 425 thou/uL (130-400); RBC Distribution Width 13.7 % (11.5-14.5); Red Blood Cell (RBC) Count 3.32 mill/uL (4.20-5.40); White Blood Cell (WBC) Count 10.2 thou/uL (4.8-10.8)
[2019-03-13 09:08] LABS: Anion Gap 11 mmol/L (10-20); BUN (Urea Nitrogen) 15 mg/dL (7.0-18.7); Calc. Creatinine Clearance 294 mL/min (70-130); Calcium 8.7 mg/dL (7.8-10.44); Carbon Dioxide 26 mmol/L (22-29); Chloride 105 mmol/L (98-107); Estimated GFR-MDRD Greater than 90; Glucose 91 mg/dL (70-105); Potassium 4.1 mmol/L (3.5-5.1); Sodium 138 mmol/L (136-145)
[2019-03-13] MEDS: Minocycline HCl 50 MG CAP PO SCH ×2 (09:15→20:17)
[2019-03-13] MEDS: Amlodipine 10 MG TAB PO SCH (09:15)
[2019-03-13] MEDS: Zinc Sulfate 220 MG CAP PO SCH (09:15)
[2019-03-13] MEDS: predniSONE 20 MG TAB PO SCH (09:15)
[2019-03-13] MEDS: hydrOXYzine 10 MG TAB PO SCH ×2 (09:15→16:14)
[2019-03-13] MEDS: Ascorbic Acid 500 mg Chewable Tablet PO SCH (09:16)
[2019-03-13] MEDS: Famotidine 20 MG TAB PO SCH ×2 (09:16→20:16)
[2019-03-13] MEDS: Enoxaparin Sodium 40 MG/0.4 ML SYRINGE SC SCH (09:18)
[2019-03-13] MEDS: Nystatin Ointment 15 GM TUBE TOP SCH ×2 (09:18→20:21)
[2019-03-13] MEDS: HYDROcodone/Acetaminophen 7.5/325 mg Tablet PO PRN ×2 (12:11→20:18)
[2019-03-13] MEDS: Sodium Chloride 0.9% 1,000 ML IV SCH (15:46)
--- NOTE | 2019-03-13 17:51 | PDOC.HOSPP ---
- Subjective Encounter Date: 03/13/19 Encounter Time: 11:00 Subjective: Pt seen for followup re: MRSA bacteremia. States she feels she is slowly getting better. - Objective Vital Signs & Weight: Vital Signs (12 hours) Temp Pulse Resp BP BP Pulse Ox 03/13/19 09:15 97 160/85 H 03/13/19 08:20 96 03/13/19 07:57 98.5 F 97 18 160/65 H 96 Weight Admit Weight 329 lb 11.2 oz Weight 329 lb 11.2 oz I&O: 03/12/19 03/13/19 03/14/19 06:59 06:59 06:59 Intake Total 900 2500 2500 Output Total 200 Balance 700 2500 2500 Result Diagrams: 03/13/19 08:08 03/13/19 08:08 Additional Labs: Labs and MARs reviewed by sd Hospitalist ROS - Review of Systems Respiratory: denies: cough, shortness of breath, SOB with excertion, pleuritic pain, wheezing Cardiovascular: denies: chest pain, palpitations, orthopnea, paroxysmal noc. dyspnea, edema, light headedness - Medication Medications: Active Medications Generic Name Dose Route Start Last Admin Trade Name Freq PRN Reason Stop Dose Admin Hydrocodone Bitart/Acetaminophen 2 tab 03/10/19 19:37 03/13/19 12:11 [place] 7.5/325 PO 2 tab Q4H PRN Administration Severe Pain (7-10) Amlodipine Besylate 10 mg 03/06/19 09:00 03/13/19 09:15 Norvasc PO 10 mg DAILY KERRY Administration Ascorbic Acid 500 mg 03/05/19 09:00 03/13/19 09:16 Vitamin C PO 500 mg DAILY KERRY Administration Diphenhydramine HCl 25 mg 03/02/19 11:57 03/11/19 08:37 Benadryl PO 25 mg Q6H PRN Administration Itching Enoxaparin Sodium 40 mg 03/01/19 09:00 03/13/19 09:18 Lovenox SC Not Given 0900 KERRY Famotidine 20 mg 02/28/19 21:00 03/13/19 09:16 Pepcid PO 20 mg BID KERRY Administration Hydralazine HCl 10 mg 03/05/19 09:39 03/05/19 20:28 Apresoline SLOW IVP 10 mg Q4H PRN Administration SBP>170, DBP>100 Hydroxyzine HCl 25 mg 02/28/19 20:31 03/08/19 14:20 Atarax PO 25 mg Q6H PRN Administration Itching Hydroxyzine HCl 10 mg 03/11/19 15:00 03/13/19 16:14 Atarax PO 10 mg TID KERRY Administration Sodium Chloride 1,000 mls @ 75 mls/hr 03/03/19 11:02 03/13/19 15:46 Normal Saline 0.9% IV 1,000 mls .[id number] KERRY Administration Vancomycin HCl 1.5 gm/ Device 300 mls @ 200 mls/hr 03/08/19 17:00 03/13/19 16 :14 IVPB 300 mls 0100,0900,1700 KERRY Administration Ketorolac Tromethamine 15 mg 03/08/19 18:00 03/12/19 20:42 Toradol IVP 03/13/19 18:01 15 mg Q8H PRN Administration Moderate Pain (4-6) Minocycline HCl 100 mg 03/08/19 21:00 03/13/19 09:15 Minocycline Hcl PO 100 mg BID KERRY Administration Nystatin 0 gm 03/01/19 09:00 03/13/19 09:18 Mycostatin Ointment TOP 1 applic BID KERRY Administration Ondansetron HCl 4 mg 03/10/19 08:39 03/10/19 09:39 Zofran IVP 4 mg Q6H PRN Administration Nausea/Vomiting Pantoprazole Sodium 40 mg 03/05/19 09:00 03/13/19 09:15 Protonix PO 40 mg DAILY KERRY Administration Prednisone 60 mg 03/01/19 08:00 03/13/19 09:15 Prednisone PO 60 mg QAM-WM KERRY Administration Sertraline HCl 50 mg 03/01/19 21:00 03/12/19 20:41 Zoloft PO 50 mg HS KERRY Administration Sodium Chloride 10 ml 02/28/19 18:57 03/11/19 08:34 Flush - Normal Saline IVF 10 ml PRN PRN Administration Saline Flush Triamcinolone Acetonide 0 gm 03/01/19 09:00 03/13/19 09:19 Kenalog 0.1% Ointment TOP 1 applic BID KERRY Administration Zinc Sulfate 220 mg 03/05/19 09:00 03/13/19 09:15 Zinc Sulfate PO 220 mg DAILY KERRY Administration - Exam General - other findings: Morbid obesity Eye: anicteric sclera ENT: moist mucosa Neck: supple Heart: RRR Respiratory: CTAB Gastrointestinal: normal bowel sounds Extremities: no cyanosis Skin - other findings: pemphigus foliaceous lesions Psychiatric: normal affect, normal behavior Hosp A/P (1) MRSA bacteremia Code(s): R78.81 - BACTEREMIA Status: Acute (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 PRN [place] for pain. PRN Benadryl and scheduled Atarax for itching. 2D echo when skin lesions improve.
[2019-03-14] MEDS: hydrOXYzine 10 MG TAB PO SCH ×4 (00:25→20:31)
[2019-03-14] MEDS: Vancomycin 1.5 GRAM/300 ML BAG 1.5 GM in Premix Bag 1 BAG IVPB SCH ×2 (00:26→10:12)
[2019-03-14] MEDS: Sodium Chloride 0.9% 1,000 ML IV SCH ×2 (00:28→16:19)
[2019-03-14] MEDS: Amlodipine 10 MG TAB PO SCH (08:33)
[2019-03-14] MEDS: Enoxaparin Sodium 40 MG/0.4 ML SYRINGE SC SCH (08:33)
[2019-03-14] MEDS: Zinc Sulfate 220 MG CAP PO SCH (08:34)
[2019-03-14] MEDS: Famotidine 20 MG TAB PO SCH ×2 (08:34→20:32)
[2019-03-14] MEDS: predniSONE 20 MG TAB PO SCH (08:34)
[2019-03-14] MEDS: Ascorbic Acid 500 mg Chewable Tablet PO SCH (08:34)
[2019-03-14] MEDS: Minocycline HCl 50 MG CAP PO SCH ×2 (08:34→20:31)
[2019-03-14] MEDS: Nystatin Ointment 15 GM TUBE TOP SCH (08:34)
[2019-03-14 09:57] LABS: Vancomycin, Trough 11.6 ug/mL
[2019-03-14] MEDS: Vancomycin HCl 1.75 GM in Sodium Chloride 0.9% 500 ML IVPB SCH ×2 (11:23→18:06)
[2019-03-14] MEDS: HYDROcodone/Acetaminophen 7.5/325 mg Tablet PO PRN ×2 (15:11→20:44)
--- NOTE | 2019-03-14 18:42 | PDOC.HOSPP ---
- Subjective Encounter Date: 03/14/19 Encounter Time: 11:00 Subjective: Pt seen for followup re: bacteremia with MRSA. No new complaints. - Objective Vital Signs & Weight: Vital Signs (12 hours) Temp Pulse Resp BP Pulse Ox 03/14/19 08:00 98.5 F 109 H 20 167/93 H 96 Weight Admit Weight 329 lb 11.2 oz Weight 329 lb 11.2 oz I&O: 03/13/19 03/14/19 03/15/19 06:59 06:59 06:59 Intake Total 2500 2500 Balance 2500 2500 Result Diagrams: 03/13/19 08:08 03/13/19 08:08 Additional Labs: Labs and MARs reviewed by ia Hospitalist ROS - Review of Systems Genitourinary: denies: dysuria, frequency, incontinence, hematuria, retention Skin: reports: rash, lesions - Medication Medications: Active Medications Generic Name Dose Route Start Last Admin Trade Name Freq PRN Reason Stop Dose Admin Hydrocodone Bitart/Acetaminophen 2 tab 03/10/19 19:37 03/14/19 15:11 [place] 7.5/325 PO 2 tab Q4H PRN Administration Severe Pain (7-10) Amlodipine Besylate 10 mg 03/06/19 09:00 03/14/19 08:33 Norvasc PO 10 mg DAILY KERRY Administration Ascorbic Acid 500 mg 03/05/19 09:00 03/14/19 08:34 Vitamin C PO 500 mg DAILY KERRY Administration Diphenhydramine HCl 25 mg 03/02/19 11:57 03/11/19 08:37 Benadryl PO 25 mg Q6H PRN Administration Itching Enoxaparin Sodium 40 mg 03/01/19 09:00 03/14/19 08:33 Lovenox SC 40 mg 0900 KERRY Administration Famotidine 20 mg 02/28/19 21:00 03/14/19 08:34 Pepcid PO 20 mg BID KERRY Administration Hydralazine HCl 10 mg 03/05/19 09:39 03/05/19 20:28 Apresoline SLOW IVP 10 mg Q4H PRN Administration SBP>170, DBP>100 Hydroxyzine HCl 25 mg 02/28/19 20:31 03/08/19 14:20 Atarax PO 25 mg Q6H PRN Administration Itching Hydroxyzine HCl 10 mg 03/11/19 15:00 12/17/19 15:12 Atarax PO 10 mg TID KERRY Administration Sodium Chloride 1,000 mls @ 75 mls/hr 03/03/19 11:02 03/14/19 16:19 Normal Saline 0.9% IV Not Given .[id number] KERRY Vancomycin HCl 1.75 gm/ Sodium 500 mls @ 250 mls/hr 03/14/19 11:00 03/14/19 18:06 Chloride IVPB 500 mls 0300,1100,1900 KERRY Administration Minocycline HCl 100 mg 03/08/19 21:00 03/14/19 08:34 Minocycline Hcl PO 100 mg BID KERRY Administration Ondansetron HCl 4 mg 03/10/19 08:39 03/10/19 09:39 Zofran IVP 4 mg Q6H PRN Administration Nausea/Vomiting Pantoprazole Sodium 40 mg 03/05/19 09:00 03/14/19 08:34 Protonix PO 40 mg DAILY KERRY Administration Prednisone 60 mg 03/01/19 08:00 03/14/19 08:34 Prednisone PO 60 mg QAM-WM KERRY Administration Sertraline HCl 50 mg 03/01/19 21:00 03/13/19 20:16 Zoloft PO 50 mg HS KERRY Administration Sodium Chloride 10 ml 02/28/19 18:57 03/11/19 08:34 Flush - Normal Saline IVF 10 ml PRN PRN Administration Saline Flush Triamcinolone Acetonide 0 gm 03/01/19 09:00 03/14/19 08:34 Kenalog 0.1% Ointment TOP 1 applic BID KERRY Administration Zinc Sulfate 220 mg 03/05/19 09:00 03/14/19 08:34 Zinc Sulfate PO 220 mg DAILY KERRY Administration - Exam General - other findings: Morbid obesity Eye: anicteric sclera ENT: moist mucosa Neck: supple Heart: RRR Respiratory: CTAB Gastrointestinal: soft Extremities: no clubbing Musculoskeletal: no muscle wasting Psychiatric: normal affect Hosp A/P (1) MRSA bacteremia Code(s): R78.81 - BACTEREMIA Status: Acute (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 2D echo when skin lesions improve.
[2019-03-14] MEDS: Nystatin Cream 30 GM TUBE TOP SCH (20:32)
[2019-03-15] MEDS: Sodium Chloride 0.9% 1,000 ML IV SCH ×4 (01:05→18:02)
[2019-03-15] MEDS: Vancomycin HCl 1.75 GM in Sodium Chloride 0.9% 500 ML IVPB SCH ×3 (02:57→18:02)
[2019-03-15] MEDS: Zinc Sulfate 220 MG CAP PO SCH (09:02)
[2019-03-15] MEDS: Amlodipine 10 MG TAB PO SCH (09:02)
[2019-03-15] MEDS: Minocycline HCl 50 MG CAP PO SCH ×2 (09:03→21:07)
[2019-03-15] MEDS: predniSONE 20 MG TAB PO SCH (09:03)
[2019-03-15] MEDS: Enoxaparin Sodium 40 MG/0.4 ML SYRINGE SC SCH (09:04)
[2019-03-15] MEDS: Ascorbic Acid 500 mg Chewable Tablet PO SCH (09:04)
[2019-03-15] MEDS: hydrOXYzine 10 MG TAB PO SCH ×3 (09:04→21:07)
[2019-03-15] MEDS: Famotidine 20 MG TAB PO SCH ×2 (09:04→21:07)
[2019-03-15] MEDS: Nystatin Cream 30 GM TUBE TOP SCH ×2 (09:05→21:08)
[2019-03-15] MEDS: HYDROcodone/Acetaminophen 7.5/325 mg Tablet PO PRN ×2 (13:34→22:07)
--- NOTE | 2019-03-15 19:02 | PDOC.HOSPP ---
- Subjective Encounter Date: 03/15/19 Encounter Time: 09:00 Subjective: Pt seen for followup re: bacteremia. Feels slightly better. Itching and pain are better. - Objective Vital Signs & Weight: Vital Signs (12 hours) Temp Pulse Resp BP BP Pulse Ox 03/15/19 09:02 90 166/90 H 03/15/19 08:00 98.1 F 90 20 166/90 H 97 Weight Admit Weight 329 lb 11.2 oz Weight 329 lb 11.2 oz I&O: 03/14/19 03/15/19 03/16/19 06:59 06:59 06:59 Intake Total 2500 1850 3570 Balance 2500 1850 3570 Result Diagrams: 03/13/19 08:08 03/13/19 08:08 Additional Labs: Labs and MARs reviewed by nd Hospitalist ROS - Review of Systems Constitutional: denies: fever, chills, sweats, weakness, malaise Skin: reports: lesions Neurological: denies: weakness, numbness, incoordination, change in speech, confusion, seizures - Medication Medications: Active Medications Generic Name Dose Route Start Last Admin Trade Name Freq PRN Reason Stop Dose Admin Hydrocodone Bitart/Acetaminophen 1 tab 03/10/19 19:36 03/15/19 13:34 [place] 7.5/325 PO 1 tab Q4H PRN Administration Moderate Pain (4-6) Hydrocodone Bitart/Acetaminophen 2 tab 03/10/19 19:37 03/14/19 15:11 [place] 7.5/325 PO 2 tab Q4H PRN Administration Severe Pain (7-10) Amlodipine Besylate 10 mg 03/06/19 09:00 03/15/19 09:02 Norvasc PO 10 mg DAILY KERRY Administration Ascorbic Acid 500 mg 03/05/19 09:00 03/15/19 09:04 Vitamin C PO 500 mg DAILY KERRY Administration Diphenhydramine HCl 25 mg 03/02/19 11:57 03/11/19 08:37 Benadryl PO 25 mg Q6H PRN Administration Itching Enoxaparin Sodium 40 mg 03/01/19 09:00 03/15/19 09:04 Lovenox SC 40 mg 0900 KERRY Administration Famotidine 20 mg 02/28/19 21:00 03/15/19 09:04 Pepcid PO 20 mg BID KERRY Administration Hydralazine HCl 10 mg 03/05/19 09:39 03/05/19 20:28 Apresoline SLOW IVP 10 mg Q4H PRN Administration SBP>170, DBP>100 Hydroxyzine HCl 25 mg 02/28/19 20:31 03/08/19 14:20 Atarax PO 25 mg Q6H PRN Administration Itching Hydroxyzine HCl 10 mg 03/11/19 15:00 03/15/19 15:06 Atarax PO 10 mg TID KERRY Administration Sodium Chloride 1,000 mls @ 75 mls/hr 03/03/19 11:02 03/15/19 18:02 Normal Saline 0.9% IV Not Given .[id number] KERRY Vancomycin HCl 1.75 gm/ Sodium 500 mls @ 250 mls/hr 03/14/19 11:00 03/15/19 18:02 Chloride IVPB 500 mls 0300,1100,1900 KERRY Administration Minocycline HCl 100 mg 03/08/19 21:00 03/15/19 09:03 Minocycline Hcl PO 100 mg BID KERRY Administration Nystatin 0 gm 03/14/19 21:00 03/15/19 09:05 Mycostatin Cream TOP 1 gm BID KERRY Administration Ondansetron HCl 4 mg 03/10/19 08:39 03/10/19 09:39 Zofran IVP 4 mg Q6H PRN Administration Nausea/Vomiting Pantoprazole Sodium 40 mg 03/05/19 09:00 03/15/19 09:03 Protonix PO 40 mg DAILY KERRY Administration Prednisone 60 mg 03/01/19 08:00 03/15/19 09:03 Prednisone PO 60 mg QAM-WM KERRY Administration Sertraline HCl 50 mg 03/01/19 21:00 03/14/19 20:31 Zoloft PO 50 mg HS KERRY Administration Sodium Chloride 10 ml 02/28/19 18:57 03/11/19 08:34 Flush - Normal Saline IVF 10 ml PRN PRN Administration Saline Flush Triamcinolone Acetonide 0 gm 03/01/19 09:00 03/15/19 09:07 Kenalog 0.1% Ointment TOP 1 applic BID KERRY Administration Zinc Sulfate 220 mg 03/05/19 09:00 03/15/19 09:02 Zinc Sulfate PO 220 mg DAILY KERRY Administration - Exam General - other findings: Morbid obesity Eye: anicteric sclera ENT: no oropharyngeal lesions Neck: supple Heart: RRR Respiratory: CTAB Skin - other findings: lesions Psychiatric: normal affect Hosp A/P (1) MRSA bacteremia Code(s): R78.81 - BACTEREMIA Status: Acute (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 2D echo when skin lesions improve.
[2019-03-16] MEDS: diphenhydrAMINE 25 MG CAP PO PRN (00:56)
[2019-03-16] MEDS: Vancomycin HCl 1.75 GM in Sodium Chloride 0.9% 500 ML IVPB SCH ×2 (03:27→12:52)
[2019-03-16] MEDS: Sodium Chloride 0.9% 1,000 ML IV SCH (06:48)
[2019-03-16] MEDS: Ascorbic Acid 500 mg Chewable Tablet PO SCH (10:29)
[2019-03-16] MEDS: hydrOXYzine 10 MG TAB PO SCH ×3 (10:29→20:55)
[2019-03-16] MEDS: Minocycline HCl 50 MG CAP PO SCH ×2 (10:29→20:54)
[2019-03-16] MEDS: predniSONE 20 MG TAB PO SCH (10:29)
[2019-03-16] MEDS: Zinc Sulfate 220 MG CAP PO SCH (10:29)
[2019-03-16] MEDS: Famotidine 20 MG TAB PO SCH ×2 (10:30→20:55)
[2019-03-16] MEDS: diphenhydrAMINE 50 MG CAP PO PRN (10:30)
[2019-03-16] MEDS: Amlodipine 10 MG TAB PO SCH (10:30)
[2019-03-16] MEDS: Enoxaparin Sodium 40 MG/0.4 ML SYRINGE SC SCH (10:32)
[2019-03-16] MEDS: Nystatin Cream 30 GM TUBE TOP SCH ×2 (10:32→20:57)
[2019-03-16 11:32] LABS: Vancomycin, Trough 20.2 ug/mL
[2019-03-16] MEDS: Vancomycin 1.5 GRAM/300 ML BAG 1.5 GM in Premix Bag 1 BAG IVPB SCH ×2 (13:14→20:55)
--- NOTE | 2019-03-16 15:25 | PDOC.HOSPP ---
- Subjective Encounter Date: 03/16/19 Encounter Time: 09:00 Subjective: Pt seen for followup re: MRSA bacteremia. Feels better but is miserable at nights because room is too hot. - Objective Vital Signs & Weight: Vital Signs (12 hours) Temp Pulse Resp BP BP Pulse Ox 03/16/19 10:30 96 161/90 H 03/16/19 08:00 97.7 F 96 20 161/90 H 98 Weight Admit Weight 329 lb 11.2 oz Weight 329 lb 11.2 oz I&O: 03/15/19 03/16/19 03/17/19 06:59 06:59 06:59 Intake Total 1850 3570 Balance 1850 3570 Result Diagrams: 03/13/19 08:08 03/13/19 08:08 Additional Labs: Labs and MARs reviewed by wa Hospitalist ROS - Review of Systems Respiratory: denies: cough, shortness of breath, SOB with excertion, pleuritic pain, wheezing Gastrointestinal: denies: nausea, vomiting, abdominal pain, diarrhea, constipation, melena, hematochezia - Medication Medications: Active Medications Generic Name Dose Route Start Last Admin Trade Name Freq PRN Reason Stop Dose Admin Hydrocodone Bitart/Acetaminophen 1 tab 03/10/19 19:36 03/15/19 22:07 [place] 7.5/325 PO 1 tab Q4H PRN Administration Moderate Pain (4-6) Hydrocodone Bitart/Acetaminophen 2 tab 03/10/19 19:37 03/14/19 15:11 [place] 7.5/325 PO 2 tab Q4H PRN Administration Severe Pain (7-10) Amlodipine Besylate 10 mg 03/06/19 09:00 03/16/19 10:30 Norvasc PO 10 mg DAILY KERRY Administration Ascorbic Acid 500 mg 03/05/19 09:00 03/16/19 10:29 Vitamin C PO 500 mg DAILY KERRY Administration Diphenhydramine HCl 25 mg 03/02/19 11:57 03/16/19 00:56 Benadryl PO 25 mg Q6H PRN Administration Itching Diphenhydramine HCl 50 mg 03/10/19 10:07 03/16/19 10:30 Benadryl PO 50 mg Q6HR PRN Administration Itching & Insomnia Enoxaparin Sodium 40 mg 03/01/19 09:00 03/16/19 10:32 Lovenox SC 40 mg 0900 KERRY Administration Famotidine 20 mg 02/28/19 21:00 03/16/19 10:30 Pepcid PO 20 mg BID KERRY Administration Hydralazine HCl 10 mg 03/05/19 09:39 03/05/19 20:28 Apresoline SLOW IVP 10 mg Q4H PRN Administration SBP>170, DBP>100 Hydroxyzine HCl 25 mg 02/28/19 20:31 03/08/19 14:20 Atarax PO 25 mg Q6H PRN Administration Itching Hydroxyzine HCl 10 mg 03/11/19 15:00 03/16/19 10:29 Atarax PO 10 mg TID KERRY Administration Sodium Chloride 1,000 mls @ 75 mls/hr 03/03/19 11:02 03/16/19 06:48 Normal Saline 0.9% IV Not Given .[id number] KERRY Vancomycin HCl 1.5 gm/ Device 300 mls @ 200 mls/hr 03/16/19 12:00 03/16/19 13 :14 IVPB 300 mls 0400,1200,2000 KERRY Administration Minocycline HCl 100 mg 03/08/19 21:00 03/16/19 10:29 Minocycline Hcl PO 100 mg BID KERRY Administration Nystatin 0 gm 03/14/19 21:00 03/16/19 10:32 Mycostatin Cream TOP 1 gm BID KERRY Administration Ondansetron HCl 4 mg 03/10/19 08:39 03/10/19 09:39 Zofran IVP 4 mg Q6H PRN Administration Nausea/Vomiting Pantoprazole Sodium 40 mg 03/05/19 09:00 03/16/19 10:30 Protonix PO 40 mg DAILY KERRY Administration Prednisone 60 mg 03/01/19 08:00 03/16/19 10:29 Prednisone PO 60 mg QAM-WM KERRY Administration Sertraline HCl 50 mg 03/01/19 21:00 03/15/19 21:07 Zoloft PO 50 mg HS KERRY Administration Sodium Chloride 10 ml 02/28/19 18:57 03/11/19 08:34 Flush - Normal Saline IVF 10 ml PRN PRN Administration Saline Flush Triamcinolone Acetonide 0 gm 03/01/19 09:00 03/16/19 10:32 Kenalog 0.1% Ointment TOP 1 applic BID KERRY Administration Zinc Sulfate 220 mg 03/05/19 09:00 03/16/19 10:29 Zinc Sulfate PO 220 mg DAILY KERRY Administration - Exam General - other findings: Morbid obesity Eye: anicteric sclera ENT: moist mucosa Gastrointestinal: soft, non-tender Skin - other findings: lesions present, improving Psychiatric: normal affect Hosp A/P (1) MRSA bacteremia Code(s): R78.81 - BACTEREMIA Status: Acute (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 Pt reportedly had an injection which helped with pemphigus foliaceous. She was supposed to receive another dose on Mar 08, but has been hospitalized here. She will try to find the name of the medication to see if it can be given here, since it helped with her lesions. Pt to have echo after lesions improve (painful now) to r/o endocarditis. s/p PICC line Continue IV vancomycin and minocycline HTN controlled. Pt reportedly approved for disability recently.
[2019-03-17] MEDS: Sodium Chloride 0.9% 1,000 ML IV SCH ×3 (01:27→20:38)
[2019-03-17] MEDS: Vancomycin 1.5 GRAM/300 ML BAG 1.5 GM in Premix Bag 1 BAG IVPB SCH ×4 (03:50→22:44)
[2019-03-17] MEDS: Enoxaparin Sodium 40 MG/0.4 ML SYRINGE SC SCH (08:08)
[2019-03-17] MEDS: predniSONE 20 MG TAB PO SCH (08:09)
[2019-03-17] MEDS: Famotidine 20 MG TAB PO SCH ×2 (08:09→20:36)
[2019-03-17] MEDS: Amlodipine 10 MG TAB PO SCH (08:09)
[2019-03-17] MEDS: hydrOXYzine 10 MG TAB PO SCH ×3 (08:09→20:35)
[2019-03-17] MEDS: Ascorbic Acid 500 mg Chewable Tablet PO SCH (08:09)
[2019-03-17] MEDS: Minocycline HCl 50 MG CAP PO SCH ×2 (08:09→20:35)
[2019-03-17] MEDS: Nystatin Cream 30 GM TUBE TOP SCH ×2 (08:10→20:41)
[2019-03-17] MEDS: Zinc Sulfate 220 MG CAP PO SCH (10:41)
[2019-03-17] MEDS: HYDROcodone/Acetaminophen 7.5/325 mg Tablet PO PRN ×2 (10:46→18:31)
--- NOTE | 2019-03-17 12:06 | PDOC.HOSPP ---
- Subjective Encounter Date: 03/17/19 Encounter Time: 10:30 Subjective: pt up in chair feels well. - Objective Vital Signs & Weight: Vital Signs (12 hours) Temp Pulse Resp BP BP 03/17/19 08:09 96 145/77 H 03/17/19 07:20 97.8 F 96 18 145/77 H Weight Admit Weight 329 lb 11.2 oz Weight 329 lb 11.2 oz I&O: 03/16/19 03/17/19 03/18/19 06:59 06:59 06:59 Intake Total 3570 Balance 3570 Result Diagrams: 03/13/19 08:08 03/13/19 08:08 Hospitalist ROS - Review of Systems Cardiovascular: denies: chest pain, palpitations, orthopnea, paroxysmal noc. dyspnea, edema, light headedness, other Gastrointestinal: denies: nausea, vomiting, abdominal pain, diarrhea, constipation, melena, hematochezia, other Genitourinary: denies: dysuria, frequency, incontinence, hematuria, retention, other - Medication Medications: Active Medications Generic Name Dose Route Start Last Admin Trade Name Freq PRN Reason Stop Dose Admin Hydrocodone Bitart/Acetaminophen 1 tab 03/10/19 19:36 03/15/19 22:07 [place] 7.5/325 PO 1 tab Q4H PRN Administration Moderate Pain (4-6) Hydrocodone Bitart/Acetaminophen 2 tab 03/10/19 19:37 03/17/19 10:46 [place] 7.5/325 PO 2 tab Q4H PRN Administration Severe Pain (7-10) Amlodipine Besylate 10 mg 03/06/19 09:00 03/17/19 08:09 Norvasc PO 10 mg DAILY KERRY Administration Ascorbic Acid 500 mg 03/05/19 09:00 03/17/19 08:09 Vitamin C PO 500 mg DAILY KERRY Administration Diphenhydramine HCl 25 mg 03/02/19 11:57 03/16/19 00:56 Benadryl PO 25 mg Q6H PRN Administration Itching Diphenhydramine HCl 50 mg 03/10/19 10:07 03/16/19 10:30 Benadryl PO 50 mg Q6HR PRN Administration Itching & Insomnia Enoxaparin Sodium 40 mg 03/01/19 09:00 03/17/19 08:08 Lovenox SC 40 mg 0900 KERRY Administration Famotidine 20 mg 02/28/19 21:00 03/17/19 08:09 Pepcid PO 20 mg BID KERRY Administration Hydralazine HCl 10 mg 03/05/19 09:39 03/05/19 20:28 Apresoline SLOW IVP 10 mg Q4H PRN Administration SBP>170, DBP>100 Hydroxyzine HCl 25 mg 02/28/19 20:31 03/08/19 14:20 Atarax PO 25 mg Q6H PRN Administration Itching Hydroxyzine HCl 10 mg 03/11/19 15:00 03/17/19 08:09 Atarax PO 10 mg TID KERRY Administration Sodium Chloride 1,000 mls @ 75 mls/hr 03/03/19 11:02 03/17/19 08:13 Normal Saline 0.9% IV Not Given .[id number] KERRY Vancomycin HCl 1.5 gm/ Device 300 mls @ 200 mls/hr 03/16/19 12:00 03/17/19 03 :50 IVPB 300 mls 0400,1200,2000 KERRY Administration Minocycline HCl 100 mg 03/08/19 21:00 03/17/19 08:09 Minocycline Hcl PO 100 mg BID KERRY Administration Nystatin 0 gm 03/14/19 21:00 03/17/19 08:10 Mycostatin Cream TOP 30 gm BID KERRY Administration Ondansetron HCl 4 mg 03/10/19 08:39 03/10/19 09:39 Zofran IVP 4 mg Q6H PRN Administration Nausea/Vomiting Pantoprazole Sodium 40 mg 03/05/19 09:00 03/17/19 08:09 Protonix PO 40 mg DAILY KERRY Administration Prednisone 60 mg 03/01/19 08:00 03/17/19 08:09 Prednisone PO 60 mg QAM-WM KERRY Administration Sertraline HCl 50 mg 03/01/19 21:00 03/16/19 20:59 Zoloft PO 50 mg HS KERRY Administration Sodium Chloride 10 ml 02/28/19 18:57 03/11/19 08:34 Flush - Normal Saline IVF 10 ml PRN PRN Administration Saline Flush Triamcinolone Acetonide 0 gm 03/01/19 09:00 03/17/19 08:10 Kenalog 0.1% Ointment TOP 1 applic BID KERRY Administration Zinc Sulfate 220 mg 03/05/19 09:00 03/17/19 10:41 Zinc Sulfate PO 220 mg DAILY KERRY Administration - Exam Neck: negative: supple, symmetric, no JVD, no thyromegaly, no lymphadenopathy, no carotid bruit, JVD Heart: negative: RRR, no murmur, no gallops, no rubs, normal peripheral pulses, irregular, diminshed peripheral pulses, murmur present, II/IV, III/IV Respiratory: negative: CTAB, no wheezes, no rales, no ronchi, normal chest expansion, no tachypnea, normal percussion, rales, rhonchi, tachypneic, wheezes Hosp A/P (1) MRSA bacteremia Code(s): R78.81 - BACTEREMIA Status: Acute (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 pt states that she now has insurance. pt encouraged to get up and move around.
[2019-03-17 13:39] LABS: Vancomycin, Trough 16.9 ug/mL
[2019-03-18] MEDS: Vancomycin 1.5 GRAM/300 ML BAG 1.5 GM in Premix Bag 1 BAG IVPB SCH ×3 (05:22→22:13)
[2019-03-18] MEDS: predniSONE 20 MG TAB PO SCH (09:37)
[2019-03-18] MEDS: Zinc Sulfate 220 MG CAP PO SCH (09:38)
[2019-03-18] MEDS: Enoxaparin Sodium 40 MG/0.4 ML SYRINGE SC SCH (09:38)
[2019-03-18] MEDS: Ascorbic Acid 500 mg Chewable Tablet PO SCH (09:38)
[2019-03-18] MEDS: Minocycline HCl 50 MG CAP PO SCH ×2 (09:38→21:25)
[2019-03-18] MEDS: hydrOXYzine 10 MG TAB PO SCH ×3 (09:38→21:25)
[2019-03-18] MEDS: Nystatin Cream 30 GM TUBE TOP SCH ×2 (09:39→21:26)
[2019-03-18] MEDS: Amlodipine 10 MG TAB PO SCH (09:51)
[2019-03-18] MEDS: Famotidine 20 MG TAB PO SCH ×2 (09:51→21:25)
[2019-03-18] MEDS: Sodium Chloride 0.9% 1,000 ML IV SCH (13:28)
[2019-03-18] MEDS: HYDROcodone/Acetaminophen 7.5/325 mg Tablet PO PRN ×2 (15:17→22:13)
[2019-03-19] MEDS: HYDROcodone/Acetaminophen 7.5/325 mg Tablet PO PRN ×2 (06:10→23:50)
[2019-03-19] MEDS: Sodium Chloride 0.9% 1,000 ML IV SCH ×2 (06:10→14:01)
[2019-03-19 06:41] LABS: Vancomycin, Trough 14.4 ug/mL
[2019-03-19] MEDS: Vancomycin 1.5 GRAM/300 ML BAG 1.5 GM in Premix Bag 1 BAG IVPB SCH ×3 (07:23→22:32)
[2019-03-19] MEDS: hydrOXYzine 10 MG TAB PO SCH ×3 (08:36→22:29)
[2019-03-19] MEDS: Zinc Sulfate 220 MG CAP PO SCH (08:36)
[2019-03-19] MEDS: predniSONE 20 MG TAB PO SCH (08:36)
[2019-03-19] MEDS: Famotidine 20 MG TAB PO SCH ×2 (08:36→22:29)
[2019-03-19] MEDS: Amlodipine 10 MG TAB PO SCH (08:36)
[2019-03-19] MEDS: Enoxaparin Sodium 40 MG/0.4 ML SYRINGE SC SCH (08:36)
[2019-03-19] MEDS: Ascorbic Acid 500 mg Chewable Tablet PO SCH (08:36)
[2019-03-19] MEDS: Nystatin Cream 30 GM TUBE TOP SCH ×3 (08:37→23:49)
--- NOTE | 2019-03-19 13:46 | PDOC.HOSPP ---
- Subjective Encounter Date: 03/19/19 Encounter Time: 10:45 Subjective: pt up in chair feels well no complains. - Objective Vital Signs & Weight: Vital Signs (12 hours) Pulse 03/19/19 08:36 94 Weight Admit Weight 329 lb 11.2 oz Weight 329 lb 11.2 oz I&O: 03/18/19 03/19/19 03/20/19 06:59 06:59 06:59 Intake Total 3925 Balance 3925 Result Diagrams: 03/13/19 08:08 03/13/19 08:08 Hospitalist ROS - Review of Systems Cardiovascular: denies: chest pain, palpitations, orthopnea, paroxysmal noc. dyspnea, edema, light headedness, other Gastrointestinal: denies: nausea, vomiting, abdominal pain, diarrhea, constipation, melena, hematochezia, other Genitourinary: denies: dysuria, frequency, incontinence, hematuria, retention, other - Medication Medications: Active Medications Generic Name Dose Route Start Last Admin Trade Name Freq PRN Reason Stop Dose Admin Hydrocodone Bitart/Acetaminophen 1 tab 03/10/19 19:36 03/15/19 22:07 [place] 7.5/325 PO 1 tab Q4H PRN Administration Moderate Pain (4-6) Hydrocodone Bitart/Acetaminophen 2 tab 03/10/19 19:37 03/19/19 06:10 [place] 7.5/325 PO 2 tab Q4H PRN Administration Severe Pain (7-10) Amlodipine Besylate 10 mg 03/06/19 09:00 03/19/19 08:36 Norvasc PO 10 mg DAILY KERRY Administration Ascorbic Acid 500 mg 03/05/19 09:00 03/19/19 08:36 Vitamin C PO 500 mg DAILY KERRY Administration Diphenhydramine HCl 25 mg 03/02/19 11:57 03/16/19 00:56 Benadryl PO 25 mg Q6H PRN Administration Itching Diphenhydramine HCl 50 mg 03/10/19 10:07 03/16/19 10:30 Benadryl PO 50 mg Q6HR PRN Administration Itching & Insomnia Enoxaparin Sodium 40 mg 03/01/19 09:00 03/19/19 08:36 Lovenox SC 40 mg 09 KERRY Administration Famotidine 20 mg 02/28/19 21:00 03/19/19 08:36 Pepcid PO 20 mg BID KERRY Administration Hydralazine HCl 10 mg 03/05/19 09:39 03/05/19 20:28 Apresoline SLOW IVP 10 mg Q4H PRN Administration SBP>170, DBP>100 Hydroxyzine HCl 25 mg 02/28/19 20:31 03/08/19 14:20 Atarax PO 25 mg Q6H PRN Administration Itching Hydroxyzine HCl 10 mg 03/11/19 15:00 03/19/19 08:36 Atarax PO 10 mg TID KERRY Administration Sodium Chloride 1,000 mls @ 75 mls/hr 03/03/19 11:02 03/19/19 06:10 Normal Saline 0.9% IV 1,000 mls .[id number] KERRY Administration Vancomycin HCl 1.5 gm/ Device 300 mls @ 200 mls/hr 03/17/19 14:00 03/19/19 07 :23 IVPB 300 mls 0600,1400,2200 KERRY Administration Nystatin 0 gm 03/14/19 21:00 03/19/19 08:37 Mycostatin Cream TOP 1 gm BID KERRY Administration Ondansetron HCl 4 mg 03/10/19 08:39 03/10/19 09:39 Zofran IVP 4 mg Q6H PRN Administration Nausea/Vomiting Pantoprazole Sodium 40 mg 03/05/19 09:00 03/19/19 08:36 Protonix PO 40 mg DAILY KERRY Administration Prednisone 60 mg 03/01/19 08:00 03/19/19 08:36 Prednisone PO 60 mg QAM-WM KERRY Administration Sertraline HCl 50 mg 03/01/19 21:00 03/18/19 21:25 Zoloft PO 50 mg HS KERRY Administration Sodium Chloride 10 ml 02/28/19 18:57 03/18/19 22:14 Flush - Normal Saline IVF 10 ml PRN PRN Administration Saline Flush Triamcinolone Acetonide 0 gm 03/01/19 09:00 03/19/19 08:37 Kenalog 0.1% Ointment TOP 1 applic BID KERRY Administration Zinc Sulfate 220 mg 03/05/19 09:00 03/19/19 08:36 Zinc Sulfate PO 220 mg DAILY KERRY Administration - Exam Heart: negative: RRR, no murmur, no gallops, no rubs, normal peripheral pulses, irregular, diminshed peripheral pulses, murmur present, II/IV, III/IV Respiratory: negative: CTAB, no wheezes, no rales, no ronchi, normal chest expansion, no tachypnea, normal percussion, rales, rhonchi, tachypneic, wheezes Gastrointestinal: negative: soft, non-tender, non-distended, normal bowel sounds , no palpable masses, no hepatomegaly, no splenomegaly, no bruit, no guarding, no rigidity, tender to palpation, distended, diminished bowl sounds, voluntary guarding Extremities: negative: no cyanosis, no clubbing, no edema, 1+ LE edema, 2+ LE edema, clubbing Hosp A/P (1) MRSA bacteremia Code(s): R78.81 - BACTEREMIA Status: Acute (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 pt states that she now has insurance. pt encouraged to get up and move around. 03/18 will continue current abx, she will need abx set up. pt states that she has insurance and wanted to know if we could infuse her rituxan. I will ask ID. 03/19 continue abx, possible abx set up so she can be discharged.
--- NOTE | 2019-03-19 13:48 | PDOC.HOSPP ---
- Subjective Encounter Date: 03/18/19 Encounter Time: 11:30 Subjective: pt up in bed feels well no complains. she wanted to know if we could given her rituxan. - Objective Vital Signs & Weight: Vital Signs (12 hours) Pulse 03/19/19 08:36 94 Weight Admit Weight 329 lb 11.2 oz Weight 329 lb 11.2 oz I&O: 03/18/19 03/19/19 03/20/19 06:59 06:59 06:59 Intake Total 3925 Balance 3925 Result Diagrams: 03/13/19 08:08 03/13/19 08:08 Hospitalist ROS - Review of Systems Cardiovascular: denies: chest pain, palpitations, orthopnea, paroxysmal noc. dyspnea, edema, light headedness, other Gastrointestinal: denies: nausea, vomiting, abdominal pain, diarrhea, constipation, melena, hematochezia, other Genitourinary: denies: dysuria, frequency, incontinence, hematuria, retention, other - Medication Medications: Active Medications Generic Name Dose Route Start Last Admin Trade Name Freq PRN Reason Stop Dose Admin Hydrocodone Bitart/Acetaminophen 1 tab 03/10/19 19:36 03/15/19 22:07 [place] 7.5/325 PO 1 tab Q4H PRN Administration Moderate Pain (4-6) Hydrocodone Bitart/Acetaminophen 2 tab 03/10/19 19:37 03/19/19 06:10 [place] 7.5/325 PO 2 tab Q4H PRN Administration Severe Pain (7-10) Amlodipine Besylate 10 mg 03/06/19 09:00 03/19/19 08:36 Norvasc PO 10 mg DAILY KERRY Administration Ascorbic Acid 500 mg 03/05/19 09:00 03/19/19 08:36 Vitamin C PO 500 mg DAILY KERRY Administration Diphenhydramine HCl 25 mg 03/02/19 11:57 03/16/19 00:56 Benadryl PO 25 mg Q6H PRN Administration Itching Diphenhydramine HCl 50 mg 03/10/19 10:07 03/16/19 10:30 Benadryl PO 50 mg Q6HR PRN Administration Itching & Insomnia Enoxaparin Sodium 40 mg 03/01/19 09:00 03/19/19 08:36 Lovenox SC 40 mg 0900 KERRY Administration Famotidine 20 mg 02/28/19 21:00 03/19/19 08:36 Pepcid PO 20 mg BID KERRY Administration Hydralazine HCl 10 mg 03/05/19 09:39 03/05/19 20:28 Apresoline SLOW IVP 10 mg Q4H PRN Administration SBP>170, DBP>100 Hydroxyzine HCl 25 mg 02/28/19 20:31 03/08/19 14:20 Atarax PO 25 mg Q6H PRN Administration Itching Hydroxyzine HCl 10 mg 03/11/19 15:00 03/19/19 08:36 Atarax PO 10 mg TID KERRY Administration Sodium Chloride 1,000 mls @ 75 mls/hr 03/03/19 11:02 03/19/19 06:10 Normal Saline 0.9% IV 1,000 mls .[id number] KERRY Administration Vancomycin HCl 1.5 gm/ Device 300 mls @ 200 mls/hr 03/17/19 14:00 03/19/19 07 :23 IVPB 300 mls 0600,1400,2200 KERRY Administration Nystatin 0 gm 03/14/19 21:00 03/19/19 08:37 Mycostatin Cream TOP 1 gm BID KERRY Administration Ondansetron HCl 4 mg 03/10/19 08:39 03/10/19 09:39 Zofran IVP 4 mg Q6H PRN Administration Nausea/Vomiting Pantoprazole Sodium 40 mg 03/05/19 09:00 03/19/19 08:36 Protonix PO 40 mg DAILY KERRY Administration Prednisone 60 mg 03/01/19 08:00 03/19/19 08:36 Prednisone PO 60 mg QAM-WM KERRY Administration Sertraline HCl 50 mg 03/01/19 21:00 03/18/19 21:25 Zoloft PO 50 mg HS KERRY Administration Sodium Chloride 10 ml 02/28/19 18:57 03/18/19 22:14 Flush - Normal Saline IVF 10 ml PRN PRN Administration Saline Flush Triamcinolone Acetonide 0 gm 03/01/19 09:00 03/19/19 08:37 Kenalog 0.1% Ointment TOP 1 applic BID KERRY Administration Zinc Sulfate 220 mg 03/05/19 09:00 03/19/19 08:36 Zinc Sulfate PO 220 mg DAILY KERRY Administration - Exam Heart: negative: RRR, no murmur, no gallops, no rubs, normal peripheral pulses, irregular, diminshed peripheral pulses, murmur present, II/IV, III/IV Respiratory: negative: CTAB, no wheezes, no rales, no ronchi, normal chest expansion, no tachypnea, normal percussion, rales, rhonchi, tachypneic, wheezes Gastrointestinal: negative: soft, non-tender, non-distended, normal bowel sounds , no palpable masses, no hepatomegaly, no splenomegaly, no bruit, no guarding, no rigidity, tender to palpation, distended, diminished bowl sounds, voluntary guarding Hosp A/P (1) MRSA bacteremia Code(s): R78.81 - BACTEREMIA Status: Acute (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 pt states that she now has insurance. pt encouraged to get up and move around. 03/18 will continue current abx, she will need abx set up. pt states that she has insurance and wanted to know if we could infuse her rituxan. I will ask ID.
[2019-03-19] MEDS: Minocycline HCl 50 MG CAP PO SCH (22:28)
[2019-03-20] MEDS: Sodium Chloride 0.9% 1,000 ML IV SCH ×3 (01:52→20:07)
[2019-03-20] MEDS: Vancomycin 1.5 GRAM/300 ML BAG 1.5 GM in Premix Bag 1 BAG IVPB SCH ×3 (05:51→23:27)
[2019-03-20] MEDS: Enoxaparin Sodium 40 MG/0.4 ML SYRINGE SC SCH (09:06)
[2019-03-20] MEDS: Zinc Sulfate 220 MG CAP PO SCH (09:07)
[2019-03-20] MEDS: Ascorbic Acid 500 mg Chewable Tablet PO SCH (09:07)
[2019-03-20] MEDS: hydrOXYzine 10 MG TAB PO SCH ×3 (09:07→20:07)
[2019-03-20] MEDS: Minocycline HCl 50 MG CAP PO SCH ×2 (09:07→20:07)
[2019-03-20] MEDS: Famotidine 20 MG TAB PO SCH ×2 (09:08→20:08)
[2019-03-20] MEDS: Amlodipine 10 MG TAB PO SCH (09:08)
[2019-03-20] MEDS: Nystatin Cream 30 GM TUBE TOP SCH ×2 (09:08→20:11)
[2019-03-20] MEDS: predniSONE 20 MG TAB PO SCH (09:08)
[2019-03-20] MEDS: HYDROcodone/Acetaminophen 7.5/325 mg Tablet PO PRN (13:42)
--- NOTE | 2019-03-20 14:10 | PDOC.HOSPP ---
- Subjective Encounter Date: 03/20/19 Encounter Time: 10:30 Subjective: pt up in chair no complains - Objective Vital Signs & Weight: Vital Signs (12 hours) Temp Pulse Resp BP Pulse Ox 03/20/19 09:08 86 03/20/19 07:46 98.0 F 86 20 148/81 H 97 Weight Admit Weight 329 lb 11.2 oz Weight 329 lb 11.2 oz Result Diagrams: 03/13/19 08:08 03/13/19 08:08 Hospitalist ROS - Review of Systems Respiratory: denies: cough, dry, shortness of breath, hemoptysis, SOB with excertion, pleuritic pain, sputum, wheezing, other Cardiovascular: denies: chest pain, palpitations, orthopnea, paroxysmal noc. dyspnea, edema, light headedness, other Gastrointestinal: denies: nausea, vomiting, abdominal pain, diarrhea, constipation, melena, hematochezia, other - Medication Medications: Active Medications Generic Name Dose Route Start Last Admin Trade Name Freq PRN Reason Stop Dose Admin Hydrocodone Bitart/Acetaminophen 1 tab 03/10/19 19:36 03/15/19 22:07 [place] 7.5/325 PO 1 tab Q4H PRN Administration Moderate Pain (4-6) Hydrocodone Bitart/Acetaminophen 2 tab 03/10/19 19:37 03/20/19 13:42 [place] 7.5/325 PO 2 tab Q4H PRN Administration Severe Pain (7-10) Amlodipine Besylate 10 mg 03/06/19 09:00 03/20/19 09:08 Norvasc PO 10 mg DAILY KERRY Administration Ascorbic Acid 500 mg 03/05/19 09:00 03/20/19 09:07 Vitamin C PO 500 mg DAILY KERRY Administration Diphenhydramine HCl 25 mg 03/02/19 11:57 03/16/19 00:56 Benadryl PO 25 mg Q6H PRN Administration Itching Diphenhydramine HCl 50 mg 03/10/19 10:07 03/16/19 10:30 Benadryl PO 50 mg Q6HR PRN Administration Itching & Insomnia Enoxaparin Sodium 40 mg 03/01/19 09:00 03/20/19 09:06 Lovenox SC 40 mg 09 KERRY Administration Famotidine 20 mg 02/28/19 21:00 03/20/19 09:08 Pepcid PO 20 mg BID KERRY Administration Hydralazine HCl 10 mg 03/05/19 09:39 03/05/19 20:28 Apresoline SLOW IVP 10 mg Q4H PRN Administration SBP>170, DBP>100 Hydroxyzine HCl 25 mg 02/28/19 20:31 03/08/19 14:20 Atarax PO 25 mg Q6H PRN Administration Itching Hydroxyzine HCl 10 mg 03/11/19 15:00 03/20/19 13:43 Atarax PO 10 mg TID KERRY Administration Sodium Chloride 1,000 mls @ 75 mls/hr 03/03/19 11:02 03/20/19 01:52 Normal Saline 0.9% IV 1,000 mls .[id number] KERRY Administration Vancomycin HCl 1.5 gm/ Device 300 mls @ 200 mls/hr 03/17/19 14:00 03/20/19 13 :43 IVPB 300 mls 0600,1400,2200 KERRY Administration Minocycline HCl 100 mg 03/19/19 21:00 03/20/19 09:07 Minocycline Hcl PO 100 mg BID KERRY Administration Nystatin 0 gm 03/14/19 21:00 03/20/19 09:08 Mycostatin Cream TOP 30 gm BID KERRY Administration Ondansetron HCl 4 mg 03/10/19 08:39 03/10/19 09:39 Zofran IVP 4 mg Q6H PRN Administration Nausea/Vomiting Pantoprazole Sodium 40 mg 03/05/19 09:00 03/20/19 09:08 Protonix PO 40 mg DAILY KERRY Administration Prednisone 60 mg 03/01/19 08:00 03/20/19 09:08 Prednisone PO 60 mg QAM-WM KERRY Administration Sertraline HCl 50 mg 03/01/19 21:00 03/19/19 22:29 Zoloft PO 50 mg HS KERRY Administration Sodium Chloride 10 ml 02/28/19 18:57 03/18/19 22:14 Flush - Normal Saline IVF 10 ml PRN PRN Administration Saline Flush Triamcinolone Acetonide 0 gm 03/01/19 09:00 03/20/19 09:09 Kenalog 0.1% Ointment TOP 1 applic BID KERRY Administration Zinc Sulfate 220 mg 03/05/19 09:00 03/20/19 09:07 Zinc Sulfate PO 220 mg DAILY KERRY Administration - Exam Neck: negative: supple, symmetric, no JVD, no thyromegaly, no lymphadenopathy, no carotid bruit, JVD Heart: negative: RRR, no murmur, no gallops, no rubs, normal peripheral pulses, irregular, diminshed peripheral pulses, murmur present, II/IV, III/IV Respiratory: negative: CTAB, no wheezes, no rales, no ronchi, normal chest expansion, no tachypnea, normal percussion, rales, rhonchi, tachypneic, wheezes Hosp A/P (1) MRSA bacteremia Code(s): R78.81 - BACTEREMIA Status: Acute (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 pt states that she now has insurance. pt encouraged to get up and move around. 03/18 will continue current abx, she will need abx set up. pt states that she has insurance and wanted to know if we could infuse her rituxan. I will ask ID. 03/19 continue abx, possible abx set up so she can be discharged. 03/20 will continue abx, her insurance auth is still pending.
[2019-03-21] MEDS: diphenhydrAMINE 25 MG CAP PO PRN ×2 (01:11→14:40)
[2019-03-21] MEDS: Vancomycin 1.5 GRAM/300 ML BAG 1.5 GM in Premix Bag 1 BAG IVPB SCH ×3 (05:54→22:20)
[2019-03-21] MEDS: Sodium Chloride 0.9% 1,000 ML IV SCH ×2 (05:54→14:12)
[2019-03-21] MEDS: Minocycline HCl 50 MG CAP PO SCH ×2 (08:39→19:56)
[2019-03-21] MEDS: Famotidine 20 MG TAB PO SCH ×2 (08:39→19:55)
[2019-03-21] MEDS: hydrOXYzine 10 MG TAB PO SCH ×3 (08:39→22:20)
[2019-03-21] MEDS: Amlodipine 10 MG TAB PO SCH (08:40)
[2019-03-21] MEDS: Ascorbic Acid 500 mg Chewable Tablet PO SCH (08:40)
[2019-03-21] MEDS: predniSONE 20 MG TAB PO SCH (08:41)
[2019-03-21] MEDS: Zinc Sulfate 220 MG CAP PO SCH (08:41)
[2019-03-21] MEDS: Enoxaparin Sodium 40 MG/0.4 ML SYRINGE SC SCH (08:42)
[2019-03-21] MEDS: Nystatin Cream 30 GM TUBE TOP SCH ×2 (08:42→19:57)
[2019-03-21] MEDS: HYDROcodone/Acetaminophen 7.5/325 mg Tablet PO PRN ×2 (16:22→19:55)
[2019-03-22] MEDS: diphenhydrAMINE 25 MG CAP PO PRN (00:46)
[2019-03-22] MEDS: hydrOXYzine 25 MG TAB PO PRN (04:13)
[2019-03-22] MEDS: Vancomycin 1.5 GRAM/300 ML BAG 1.5 GM in Premix Bag 1 BAG IVPB SCH ×2 (05:53→14:44)
[2019-03-22] MEDS: Zinc Sulfate 220 MG CAP PO SCH (08:39)
[2019-03-22] MEDS: Famotidine 20 MG TAB PO SCH ×2 (08:39→21:34)
[2019-03-22] MEDS: Amlodipine 10 MG TAB PO SCH (08:39)
[2019-03-22] MEDS: predniSONE 20 MG TAB PO SCH (08:40)
[2019-03-22] MEDS: hydrOXYzine 10 MG TAB PO SCH ×3 (08:40→21:36)
[2019-03-22] MEDS: Minocycline HCl 50 MG CAP PO SCH ×2 (08:40→21:34)
[2019-03-22] MEDS: Ascorbic Acid 500 mg Chewable Tablet PO SCH (08:40)
[2019-03-22] MEDS: Enoxaparin Sodium 40 MG/0.4 ML SYRINGE SC SCH (08:41)
[2019-03-22] MEDS: Nystatin Cream 30 GM TUBE TOP SCH ×2 (08:43→21:37)
[2019-03-22] MEDS: HYDROcodone/Acetaminophen 7.5/325 mg Tablet PO PRN (08:56)
[2019-03-22] MEDS: Sodium Chloride 0.9% 1,000 ML IV SCH (11:51)
[2019-03-22 14:32] LABS: Vancomycin, Trough 12.6 ug/mL
[2019-03-22] MEDS: Morphine 2 MG/ML SYRINGE SLOW IVP PRN (17:52)
--- NOTE | 2019-03-22 21:30 | PDOC.HOSPP ---
- Subjective Encounter Date: 03/22/19 Encounter Time: 09:00 Subjective: pt up in bed complains of itching at night. - Objective Vital Signs & Weight: Vital Signs (12 hours) Temp Pulse Resp BP Pulse Ox 03/22/19 20:00 98.6 F 112 H 20 174/77 H 95 Weight Admit Weight 329 lb 11.2 oz Weight 329 lb 11.2 oz I&O: 03/21/19 03/22/19 03/23/19 06:59 06:59 06:59 Intake Total 3340 Balance 3340 Result Diagrams: 03/13/19 08:08 03/13/19 08:08 Hospitalist ROS - Review of Systems Cardiovascular: denies: chest pain, palpitations, orthopnea, paroxysmal noc. dyspnea, edema, light headedness, other Gastrointestinal: denies: nausea, vomiting, abdominal pain, diarrhea, constipation, melena, hematochezia, other Genitourinary: denies: dysuria, frequency, incontinence, hematuria, retention, other - Medication Medications: Active Medications Generic Name Dose Route Start Last Admin Trade Name Freq PRN Reason Stop Dose Admin Hydrocodone Bitart/Acetaminophen 2 tab 03/21/19 16:05 03/22/19 08:56 [place] 7.5/325 PO 2 tab Q4H PRN Administration Moderate Pain (4-6) Hydrocodone Bitart/Acetaminophen 1 tab 03/21/19 16:05 03/21/19 16:22 [place] 7.5/325 PO 1 tab Q4H PRN Administration Mild Pain (1-3) Amlodipine Besylate 10 mg 03/06/19 09:00 03/22/19 08:39 Norvasc PO 10 mg DAILY KERRY Administration Ascorbic Acid 500 mg 03/05/19 09:00 03/22/19 08:40 Vitamin C PO 500 mg DAILY KERRY Administration Diphenhydramine HCl 50 mg 03/10/19 10:07 03/16/19 10:30 Benadryl PO 50 mg Q6HR PRN Administration Itching & Insomnia Enoxaparin Sodium 40 mg 03/01/19 09:00 03/22/19 08:41 Lovenox SC 40 mg 0900 KERRY Administration Famotidine 20 mg 02/28/19 21:00 03/22/19 08:39 Pepcid PO 20 mg BID KERRY Administration Hydralazine HCl 10 mg 03/05/19 09:39 03/05/19 20:28 Apresoline SLOW IVP 10 mg Q4H PRN Administration SBP>170, DBP>100 Hydroxyzine HCl 25 mg 02/28/19 20:31 03/22/19 04:13 Atarax PO 25 mg Q6H PRN Administration Itching Hydroxyzine HCl 10 mg 03/11/19 15:00 03/22/19 14:00 Atarax PO 10 mg TID KERRY Administration Minocycline HCl 100 mg 03/19/19 21:00 03/22/19 08:40 Minocycline Hcl PO 100 mg BID KERRY Administration Morphine Sulfate 2 mg 03/22/19 11:57 03/22/19 17:52 Morphine SLOW IVP 2 mg DAILY PRN Administration Mild-Moderate Pain (1-5) Nystatin 0 gm 03/14/19 21:00 03/22/19 08:43 Mycostatin Cream TOP 30 gm BID KERRY Administration Ondansetron HCl 4 mg 03/10/19 08:39 03/10/19 09:39 Zofran IVP 4 mg Q6H PRN Administration Nausea/Vomiting Pantoprazole Sodium 40 mg 03/05/19 09:00 03/22/19 08:40 Protonix PO 40 mg DAILY KERRY Administration Prednisone 60 mg 03/01/19 08:00 03/22/19 08:40 Prednisone PO 60 mg QAM-WM KERRY Administration Sertraline HCl 50 mg 03/01/19 21:00 03/21/19 19:55 Zoloft PO 50 mg HS KERRY Administration Sodium Chloride 10 ml 02/28/19 18:57 03/18/19 22:14 Flush - Normal Saline IVF 10 ml PRN PRN Administration Saline Flush Triamcinolone Acetonide 0 gm 03/01/19 09:00 03/22/19 08:47 Kenalog 0.1% Ointment TOP 1 applic BID KERRY Administration Zinc Sulfate 220 mg 03/05/19 09:00 03/22/19 08:39 Zinc Sulfate PO 220 mg DAILY KERRY Administration - Exam Eye - other findings: mild eythema to right eye Neck: negative: supple, symmetric, no JVD, no thyromegaly, no lymphadenopathy, no carotid bruit, JVD Heart: negative: RRR, no murmur, no gallops, no rubs, normal peripheral pulses, irregular, diminshed peripheral pulses, murmur present, II/IV, III/IV Respiratory: negative: CTAB, no wheezes, no rales, no ronchi, normal chest expansion, no tachypnea, normal percussion, rales, rhonchi, tachypneic, wheezes Hosp A/P (1) MRSA bacteremia Code(s): R78.81 - BACTEREMIA Status: Acute (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 pt states that she now has insurance. pt encouraged to get up and move around. 03/18 will continue current abx, she will need abx set up. pt states that she has insurance and wanted to know if we could infuse her rituxan. I will ask ID. 03/19 continue abx, possible abx set up so she can be discharged. 03/20 will continue abx, her insurance auth is still pending. 03/22 will order benadryl at night, pt encouraged to ambulate. pt's iv meds need to be set up. warm compress to right eye if worsens will order ointment.
[2019-03-22] MEDS: diphenhydrAMINE 12.5 MG/5 ML UDCUP PO SCH (22:44)
[2019-03-22] MEDS: Vancomycin HCl 1.75 GM in Sodium Chloride 0.9% 500 ML IVPB SCH (22:44)
[2019-03-23] MEDS: Vancomycin HCl 1.75 GM in Sodium Chloride 0.9% 500 ML IVPB SCH ×3 (06:11→21:44)
[2019-03-23 06:13] LABS: #Eosinphils 0.5 thou/uL (0.0-0.7); #Lymphocytes 1.6 thou/uL (1.20-3.40); #Monocytes 1.2 thou/uL (0.11-0.59); #Neutrophils 5.7 thou/uL (1.40-6.50); %Basophils 0.1 % (0.0-1.0); %Eosinophils 5.7 % (0.0-10.0); %Neutrophils 63.3 % (42.0-75.0); Hemoglobin 9.1 g/dL (12.0-16.0); Mean Corpuscular HGB CONC 32.3 g/dL (32.0-36.0); Mean Corpuscular Hemoglobin 27.3 pg (27.0-31.0); Mean Corpuscular Volume 84.5 fL (78.0-98.0); Mean Platelet Volume 7.1 fL (7.4-10.4); Platelet Count 333 thou/uL (130-400); Red Blood Cell (RBC) Count 3.33 mill/uL (4.20-5.40)
[2019-03-23] MEDS: Ondansetron PF 4 MG/2 ML Vial IVP PRN (06:15)
[2019-03-23 06:32] LABS: Anion Gap 10 mmol/L (10-20); BUN (Urea Nitrogen) 18 mg/dL (7.0-18.7); Calc. Creatinine Clearance 264 mL/min (70-130); Calcium 8.7 mg/dL (7.8-10.44); Carbon Dioxide 29 mmol/L (22-29); Chloride 103 mmol/L (98-107); Estimated GFR-MDRD Greater than 90; Glucose 110 mg/dL (70-105); Potassium 3.8 mmol/L (3.5-5.1); Sodium 138 mmol/L (136-145)
[2019-03-23] MEDS: Nystatin Cream 30 GM TUBE TOP SCH ×2 (08:11→20:31)
[2019-03-23] MEDS: predniSONE 20 MG TAB PO SCH (08:12)
[2019-03-23] MEDS: Minocycline HCl 50 MG CAP PO SCH ×2 (08:12→20:27)
[2019-03-23] MEDS: Famotidine 20 MG TAB PO SCH ×2 (08:13→20:27)
[2019-03-23] MEDS: hydrOXYzine 10 MG TAB PO SCH ×3 (08:13→20:27)
[2019-03-23] MEDS: Ascorbic Acid 500 mg Chewable Tablet PO SCH (08:13)
[2019-03-23] MEDS: Zinc Sulfate 220 MG CAP PO SCH (08:13)
[2019-03-23] MEDS: Enoxaparin Sodium 40 MG/0.4 ML SYRINGE SC SCH (08:13)
[2019-03-23] MEDS: Amlodipine 10 MG TAB PO SCH (08:13)
[2019-03-23] MEDS: HYDROcodone/Acetaminophen 7.5/325 mg Tablet PO PRN ×2 (09:41→13:51)
--- NOTE | 2019-03-23 18:28 | PDOC.HOSPP ---
- Subjective Encounter Date: 03/23/19 Encounter Time: 11:57 Subjective: 38 y/o female with morbid obesity, pemphigus foliceaus, HTN and nephrolithiasis admitted with fever, chills and malaise as well multiple skin lesions. Initially started on antibiotics for possible cellulitis but was later found to have untreated persistent MRSA bacteremia and antibiotic broadened appropriately. She is feeling better. skin lesion persists but fever has subsided. - Objective Vital Signs & Weight: Vital Signs (12 hours) Temp Pulse Resp BP Pulse Ox 03/23/19 08:13 97 03/23/19 08:00 98.5 F 97 18 146/72 H 96 Weight Admit Weight 329 lb 11.2 oz Weight 329 lb 11.2 oz I&O: 03/22/19 03/23/19 03/24/19 06:59 06:59 06:59 Intake Total 3340 720 Balance 3340 720 Result Diagrams: 03/23/19 05:50 03/23/19 05:50 Hospitalist ROS - Medication Medications: Active Medications Generic Name Dose Route Start Last Admin Trade Name Freq PRN Reason Stop Dose Admin Hydrocodone Bitart/Acetaminophen 2 tab 03/21/19 16:05 03/23/19 13:51 [place] 7.5/325 PO 2 tab Q4H PRN Administration Moderate Pain (4-6) Hydrocodone Bitart/Acetaminophen 1 tab 03/21/19 16:05 03/21/19 16:22 [place] 7.5/325 PO 1 tab Q4H PRN Administration Mild Pain (1-3) Amlodipine Besylate 10 mg 03/06/19 09:00 03/23/19 08:13 Norvasc PO 10 mg DAILY KERRY Administration Ascorbic Acid 500 mg 03/05/19 09:00 03/23/19 08:13 Vitamin C PO 500 mg DAILY KERRY Administration Diphenhydramine HCl 50 mg 03/10/19 10:07 03/16/19 10:30 Benadryl PO 50 mg Q6HR PRN Administration Itching & Insomnia Diphenhydramine HCl 50 mg 03/22/19 21:00 03/22/19 22:44 Benadryl PO 50 mg HS KERRY Administration Enoxaparin Sodium 40 mg 03/01/19 09:00 03/23/19 08:13 Lovenox SC 40 mg 09 KERRY Administration Famotidine 20 mg 02/28/19 21:00 03/23/19 08:13 Pepcid PO 20 mg BID KERRY Administration Hydralazine HCl 10 mg 03/05/19 09:39 03/05/19 20:28 Apresoline SLOW IVP 10 mg Q4H PRN Administration SBP>170, DBP>100 Hydroxyzine HCl 25 mg 02/28/19 20:31 03/22/19 04:13 Atarax PO 25 mg Q6H PRN Administration Itching Hydroxyzine HCl 10 mg 03/11/19 15:00 03/23/19 13:48 Atarax PO 10 mg TID KERRY Administration Vancomycin HCl 1.75 gm/ Sodium 500 mls @ 250 mls/hr 03/22/19 22:00 03/23/19 13:48 Chloride IVPB 500 mls 0600,1400,2200 KERRY Administration Minocycline HCl 100 mg 03/19/19 21:00 03/23/19 08:12 Minocycline Hcl PO 100 mg BID KERRY Administration Morphine Sulfate 2 mg 03/22/19 11:57 03/22/19 17:52 Morphine SLOW IVP 2 mg DAILY PRN Administration Mild-Moderate Pain (1-5) Nystatin 0 gm 03/14/19 21:00 03/23/19 08:11 Mycostatin Cream TOP 30 gm BID KERRY Administration Ondansetron HCl 4 mg 03/10/19 08:39 03/23/19 06:15 Zofran IVP 4 mg Q6H PRN Administration Nausea/Vomiting Pantoprazole Sodium 40 mg 03/05/19 09:00 03/23/19 08:12 Protonix PO 40 mg DAILY KERRY Administration Prednisone 60 mg 03/01/19 08:00 03/23/19 08:12 Prednisone PO 60 mg QAM-WM KERRY Administration Sertraline HCl 50 mg 03/01/19 21:00 03/22/19 21:34 Zoloft PO 50 mg HS KERRY Administration Sodium Chloride 10 ml 02/28/19 18:57 03/18/19 22:14 Flush - Normal Saline IVF 10 ml PRN PRN Administration Saline Flush Triamcinolone Acetonide 0 gm 03/01/19 09:00 03/23/19 08:11 Kenalog 0.1% Ointment TOP 1 applic BID KERRY Administration Zinc Sulfate 220 mg 03/05/19 09:00 03/23/19 08:13 Zinc Sulfate PO 220 mg DAILY KERRY Administration - Exam General Appearance: awake alert General - other findings: obese Eye: anicteric sclera ENT: normocephalic atraumatic Neck: symmetric, no JVD Heart: RRR Respiratory: no wheezes, no rales, no ronchi, normal chest expansion Gastrointestinal: soft, non-tender, non-distended, normal bowel sounds Gastrointestinal - other findings: morbidly obese Extremities: 1+ LE edema Skin - other findings: scatted skin lesion/rash noted all over the body Neurological: cranial nerve grossly intact, no focal deficits Psychiatric: A&O x 3 Hosp A/P (1) MRSA bacteremia Code(s): R78.81 - BACTEREMIA Status: Acute (2) Cellulitis Code(s): L03.90 - CELLULITIS, UNSPECIFIED Status: Acute (3) 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 Get Iron chemistry in the am Awaiting placement
[2019-03-23] MEDS ORDERED: Chlorthalidone 25 MG TAB PO SCH (18:45)
[2019-03-23] MEDS: diphenhydrAMINE 12.5 MG/5 ML UDCUP PO SCH (20:27)
[2019-03-23 21:22] LABS: Vancomycin, Trough 12.1 ug/mL
[2019-03-24] MEDS: Ondansetron PF 4 MG/2 ML Vial IVP PRN ×2 (02:39→08:05)
[2019-03-24 06:12] LABS: Hemoglobin 9.7 g/dL (12.0-16.0); Mean Corpuscular HGB CONC 32.9 g/dL (32.0-36.0); Mean Corpuscular Hemoglobin 27.6 pg (27.0-31.0); Mean Corpuscular Volume 83.9 fL (78.0-98.0); Mean Platelet Volume 7.8 fL (7.4-10.4); Platelet Count 282 thou/uL (130-400); Red Blood Cell (RBC) Count 3.52 mill/uL (4.20-5.40); White Blood Cell (WBC) Count 9.9 thou/uL (4.8-10.8)
[2019-03-24] MEDS: Chlorthalidone 25 MG TAB PO SCH (08:00)
[2019-03-24] MEDS: Ascorbic Acid 500 mg Chewable Tablet PO SCH (08:00)
[2019-03-24] MEDS: Famotidine 20 MG TAB PO SCH ×2 (08:00→20:23)
[2019-03-24] MEDS: hydrOXYzine 10 MG TAB PO SCH ×3 (08:00→20:23)
[2019-03-24] MEDS: Zinc Sulfate 220 MG CAP PO SCH (08:00)
[2019-03-24] MEDS: predniSONE 20 MG TAB PO SCH (08:01)
[2019-03-24] MEDS: Amlodipine 10 MG TAB PO SCH (08:01)
[2019-03-24] MEDS: Enoxaparin Sodium 40 MG/0.4 ML SYRINGE SC SCH (08:01)
[2019-03-24] MEDS: Minocycline HCl 50 MG CAP PO SCH ×2 (08:23→20:23)
[2019-03-24] MEDS: Nystatin Cream 30 GM TUBE TOP SCH ×2 (08:23→20:26)
[2019-03-24] MEDS: Acetaminophen 325 MG TAB PO PRN ×2 (09:26→20:24)
[2019-03-24] MEDS: Morphine 2 MG/ML SYRINGE SLOW IVP PRN (11:23)
--- NOTE | 2019-03-24 12:20 | PQF ---
LORRAINEKELSIELAW DUBONMARY KATE [id number] CLINICAL DOCUMENTATION IMPROVEMENT CLARIFICATION FORM: ICD-10 Updated PLEASE DO AN ADDENDUM TO THE PROGRESS NOTE WITH ANY DOCUMENTATION UPDATES OR ADDITIONS AND CARRY THROUGH TO DC SUMMARY. THANK YOU. DATE: 03/24/2019 ATTN: DR. Gloria DUBON Please exercise your independent, professional judgment in responding to the clarification form. Clinical indicators are provided on the bottom of this form for your review. Please check appropriate box(es): [ ] Sepsis due to: Cellulitis [ ] Sepsis due to : MRSA bacteremia [ ] Sepsis due to : Pemphigus foliaceous [ ] Severe sepsis with acute organ dysfunction of: (Examples: respiratory failure, encephalopathy, acute kidney failure, other) [ ] Localized infection without sepsis [ x ] Other diagnosis Sepsis due to MRSA bacteremia and cellulitis [ ] Unable to determine In addition, please specify: Present on Admission (POA): [ x ] Yes [ ] No [ ] Unable to determine For continuity of documentation, please document condition throughout progress notes and discharge summary. Thank You. CLINICAL INDICATORS - SIGNS / SYMPTOMS / LABS / RESULTS AND LOCATION IN MR WBC 14.6 ([facility]) LACTATE 3.1 02/28 ED REPORT: PT PRESENTS A TRANSFER FROM [facility] FOR SEPSIS. 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 PT HAD FLARE UP AND WAS SEEN AT [facility] AND WAS FOUND TO BE SEPTIC. ED PHYSICIAN DX: SEPSIS 02/28 H&P (O'DIDIER) ASSESSMENT: 1). SEPSIS MOST LIKELY DUE TO CELLULITIS DUE TO PEMPHIGUS VULGARIS. 03/01-03/02 PN (GITA) A/P: 1). SEPSIS, ACUTE, ; 2). PEMPHIGUS FOLIACEOUS, ACUTE; 3). CELLULITIS,ACUTE 03/03-03/05 PN (REJI) IMPRESSION: 1.) PEMPHIGUS FOLIACEOUS, 2. MRSA BACTEREMIA, 3). SEPSIS, 4). CELLULITIS 03/06-03/16 PN (JONATHAN) A/P : 1). MRSA BACTEREMIA, 2). PEMPHIGUS FOLIACEOUS 03/17-03/22 PN (BHIMJI) A/P: 1). MRSA BACTEREMIA, 2). PEMPHIGUS FOLIACEOUS 03/23 PN (OBI) INITIALLY STARTED ON ANTIBIOTICS FOR POSSIBLE CELLULITIS BUT WAS LATER FOUND TO HAVE UNTREATED PERSISTENT MRSA BACTEREMIA. RISK: HX PEMPHIGUS FOLIACEUS, LYMPHOCYTIC DISEASE , DX SEPSIS, CELLULITIS (H&P/ [facility]) 02/28 PERSISTENT MRSA BACTEREMIA (EMERITA/CONSULT) 03/01 TREATMENTS: ID CONSULT (EMERITA/ 03/01) VANCOMYCIN IV (03/14 - PRESENT) THANK YOU! BLANCA (This form is maintained as a part of the permanent medical record) 2014 [employer] All Rights Reserved [email or web address] [phone] MTDD
--- NOTE | 2019-03-24 13:42 | CT ---
CT ABDOMEN NONCONTRAST CT PELVIS NONCONTRAST: (Urolithiasis protocol) DATE: 03/24/2019 HISTORY: 38 year old female with abdominal pain, fever, and nausea. Rule out obstructive uropathy. COMPARISON: 01/13/2019 TECHNIQUE: IV injection of iodinated contrast media: None Oral contrast media: None FINDINGS: Other than for urolithiasis, the lack of IV and oral contrast limits the evaluation. Right kidney: No calculus identified in right kidney. No hydronephrosis. Left kidney: There is a 12 x 15 x 8 mm calculus in a mid-lower pole major calyx which now has a diffe rent orientation and slightly different location compared to the previous CT. There are 2 much smaller calculi in the left renal lower pole calyx. No hydronephrosis. No calculus in the ureters or bladder. Suture line or surgical clip at tip of cecum. Appendix not visualized. Within the limitations of a noncontrast scan, no obvious major pathology identified involving abdomin al aorta, urinary bladder, pancreas, adrenals, or spleen. Mild hepatomegaly. No other hepatic abnormality. No small bowel dilation. Moderate volume of colonic stool throughout large intestine, greatest in the rectum. Question constip ation. No ascites or pneumoperitoneum. Lung bases are grossly clear. Distended gallbladder without mural thickening or pericholecystic edema. IMPRESSION: 1) no obstructive uropathy. 2): Unilateral nephrolithiasis. Left renal calculi. 3) the largest left renal calculus measuring 15 mm, an early staghorn calculus, is in a different micheline entation and position compared to previous study. 4) status post appendectomy. 5) mild hepatomegaly.
[2019-03-24] MEDS: HYDROcodone/Acetaminophen 7.5/325 mg Tablet PO PRN ×2 (15:07→23:55)
--- NOTE | 2019-03-24 16:23 | PDOC.HOSPP ---
- Subjective Encounter Date: 03/24/19 Encounter Time: 10:47 Subjective: 38 y/o female with morbid obesity, pemphigus foliceaus, HTN and nephrolithiasis admitted with fever, chills and malaise as well multiple skin lesions. Initially started on antibiotics for possible cellulitis but was later found to have untreated persistent MRSA bacteremia and antibiotic broadened appropriately. complains of abdominal pain and nausea. Also reported new blisters. Had fever last night with temp above 101 but review of vitals showed no temp spike. - Objective Vital Signs & Weight: Vital Signs (12 hours) Temp Pulse Resp BP Pulse Ox 03/24/19 08:01 114 H 03/24/19 08:00 96 03/24/19 07:39 98.7 F 114 H 20 132/67 96 Weight Admit Weight 329 lb 11.2 oz Weight 329 lb 11.2 oz I&O: 03/23/19 03/24/19 03/25/19 06:59 06:59 06:59 Intake Total 3340 2640 720 Balance 3340 2640 720 Result Diagrams: 03/24/19 05:30 03/23/19 05:50 Hospitalist ROS - Medication Medications: Active Medications Generic Name Dose Route Start Last Admin Trade Name Freq PRN Reason Stop Dose Admin Acetaminophen 650 mg 02/28/19 18:57 03/24/19 09:26 Tylenol PO 650 mg Q4H PRN Administration Headache/Fever/Mild Pain (1-3) Hydrocodone Bitart/Acetaminophen 2 tab 03/21/19 16:05 03/24/19 15:07 [place] 7.5/325 PO 2 tab Q4H PRN Administration Moderate Pain (4-6) Hydrocodone Bitart/Acetaminophen 1 tab 03/21/19 16:05 03/21/19 16:22 [place] 7.5/325 PO 1 tab Q4H PRN Administration Mild Pain (1-3) Amlodipine Besylate 10 mg 03/06/19 09:00 03/24/19 08:01 Norvasc PO 10 mg DAILY KERRY Administration Ascorbic Acid 500 mg 03/05/19 09:00 03/24/19 08:00 Vitamin C PO 500 mg DAILY KERRY Administration Chlorthalidone 25 mg 03/24/19 09:00 03/24/19 08:00 [place] PO 25 mg DAILY KERRY Administration Diphenhydramine HCl 50 mg 03/10/19 10:07 03/16/19 10:30 Benadryl PO 50 mg Q6HR PRN Administration Itching & Insomnia Diphenhydramine HCl 50 mg 03/22/19 21:00 03/23/19 20:27 Benadryl PO 50 mg HS KERRY Administration Enoxaparin Sodium 40 mg 03/01/19 09:00 03/24/19 08:01 Lovenox SC 40 mg 0900 KERRY Administration Famotidine 20 mg 02/28/19 21:00 03/24/19 08:00 Pepcid PO 20 mg BID KERRY Administration Hydralazine HCl 10 mg 03/05/19 09:39 03/05/19 20:28 Apresoline SLOW IVP 10 mg Q4H PRN Administration SBP>170, DBP>100 Hydroxyzine HCl 25 mg 02/28/19 20:31 03/22/19 04:13 Atarax PO 25 mg Q6H PRN Administration Itching Hydroxyzine HCl 10 mg 03/11/19 15:00 03/24/19 15:07 Atarax PO 10 mg TID KERRY Administration Vancomycin HCl 2 gm/ Sodium 500 mls @ 250 mls/hr 03/23/19 22:00 03/24/19 15: 07 Chloride IVPB 500 mls Q8HR KERRY Administration Minocycline HCl 100 mg 03/19/19 21:00 03/24/19 08:23 Minocycline Hcl PO 100 mg BID KERRY Administration Morphine Sulfate 2 mg 03/22/19 11:57 03/24/19 11:23 Morphine SLOW IVP 2 mg DAILY PRN Administration Mild-Moderate Pain (1-5) Nystatin 0 gm 03/14/19 21:00 03/24/19 08:23 Mycostatin Cream TOP 30 gm BID KERRY Administration Ondansetron HCl 4 mg 03/10/19 08:39 03/24/19 08:05 Zofran IVP 4 mg Q6H PRN Administration Nausea/Vomiting Pantoprazole Sodium 40 mg 03/05/19 09:00 03/24/19 08:00 Protonix PO 40 mg DAILY KERRY Administration Prednisone 60 mg 03/01/19 08:00 03/24/19 08:01 Prednisone PO 60 mg QAM-WM KERRY Administration Sertraline HCl 50 mg 03/01/19 21:00 03/23/19 20:27 Zoloft PO 50 mg HS KERRY Administration Sodium Chloride 10 ml 02/28/19 18:57 03/24/19 08:01 Flush - Normal Saline IVF 10 ml PRN PRN Administration Saline Flush Triamcinolone Acetonide 0 gm 03/01/19 09:00 03/24/19 08:23 Kenalog 0.1% Ointment TOP 1 applic BID KERRY Administration Zinc Sulfate 220 mg 03/05/19 09:00 03/24/19 08:00 Zinc Sulfate PO 220 mg DAILY KERRY Administration - Exam General Appearance: awake alert General - other findings: obese Eye: anicteric sclera ENT: normocephalic atraumatic, moist mucosa Neck: symmetric, no JVD Heart: RRR Heart - other findings: tachycardic Respiratory: no wheezes, no ronchi, normal chest expansion Gastrointestinal: soft, non-distended, normal bowel sounds Gastrointestinal - other findings: morbidly obese. diffuse abdominal tenderness. 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 - PEMPHIGUS FOLIACEOUS Status: Acute (4) Sepsis Code(s): A41.9 - SEPSIS, UNSPECIFIED ORGANISM Status: Acute (5) HTN (hypertension) Code(s): I10 - ESSENTIAL (PRIMARY) HYPERTENSION Status: Chronic (6) Morbid obesity Code(s): E66.01 - MORBID (SEVERE) OBESITY DUE TO EXCESS CALORIES Status: Chronic (7) Anemia Code(s): D64.9 - ANEMIA, UNSPECIFIED Status: Acute (8) Left nephrolithiasis Code(s): N20.0 - CALCULUS OF KIDNEY Status: Acute (9) Iron deficiency anemia Code(s): D50.9 - IRON DEFICIENCY ANEMIA, UNSPECIFIED Status: Acute - Plan Get CT abd/pelvis to rule out obstructing stone Continue chlorthalidone and other antihypertensives Continue IV antibiotics. D/W ID, Recommended transfer to [facility] where patient's merchandise clerk is located for further treatment of Pemphigus. Analgesic as needed to continue. addendum Contacted [facility] through transfer center, They declined admission preferring that patient follow up with them on outpatient basis. CT abd/pelvis showed Left non obstructing kidney stone. Continue current treatment
[2019-03-24] MEDS: diphenhydrAMINE 12.5 MG/5 ML UDCUP PO SCH (20:22)
[2019-03-24 21:48] LABS: Vancomycin, Trough 15.3 ug/mL
[2019-03-25] MEDS: hydrOXYzine 25 MG TAB PO PRN (01:04)
[2019-03-25] MEDS: Acetaminophen 325 MG TAB PO PRN (01:13)
[2019-03-25] MEDS: hydrOXYzine 10 MG TAB PO SCH ×3 (08:08→20:23)
[2019-03-25] MEDS: Minocycline HCl 50 MG CAP PO SCH ×2 (08:08→20:23)
[2019-03-25] MEDS: Famotidine 20 MG TAB PO SCH ×2 (08:08→20:23)
[2019-03-25] MEDS: Enoxaparin Sodium 40 MG/0.4 ML SYRINGE SC SCH (08:08)
[2019-03-25] MEDS: Zinc Sulfate 220 MG CAP PO SCH (08:08)
[2019-03-25] MEDS: predniSONE 20 MG TAB PO SCH (08:09)
[2019-03-25] MEDS: Ascorbic Acid 500 mg Chewable Tablet PO SCH (08:09)
[2019-03-25] MEDS: Amlodipine 10 MG TAB PO SCH (08:09)
[2019-03-25] MEDS: Nystatin Cream 30 GM TUBE TOP SCH (08:11)
[2019-03-25] MEDS: Chlorthalidone 25 MG TAB PO SCH (08:26)
[2019-03-25 08:32] LABS: Albumin 3.8 g/dL (3.5-5.0); Anion Gap 25 mmol/L (10-20); BUN (Urea Nitrogen) 15 mg/dL (7.0-18.7); BUN/Creatinine Ratio 18.29; Calc. Creatinine Clearance 215 mL/min (70-130); Calcium 9.6 mg/dL (7.8-10.44); Carbon Dioxide 17 mmol/L (22-29); Chloride 110 mmol/L (98-107); Estimated GFR-MDRD 77; Glucose 106 mg/dL (70-105); Phosphorus 4.8 mg/dL (2.3-4.7); Sodium 145 mmol/L (136-145)
[2019-03-25] MEDS: Ondansetron PF 4 MG/2 ML Vial IVP PRN ×2 (08:52→22:31)
[2019-03-25 10:38] LABS: Potassium 4.2 mmol/L (3.5-5.1)
[2019-03-25] MEDS: HYDROcodone/Acetaminophen 7.5/325 mg Tablet PO PRN ×2 (13:54→19:18)
--- NOTE | 2019-03-25 16:28 | PDOC.HOSPP ---
- Subjective Encounter Date: 03/25/19 Encounter Time: 09:26 Subjective: 38 y/o female with morbid obesity, pemphigus foliceaus, HTN and nephrolithiasis admitted with fever, chills and malaise as well multiple skin lesions. Initially started on antibiotics for possible cellulitis but was later found to have untreated persistent MRSA bacteremia and antibiotic broadened appropriately. Still with ill feeling and nausea. had an episode of emesis earlier today. Thinks her symptoms may be related to her mentrual period. - Objective Vital Signs & Weight: Vital Signs (12 hours) Temp Pulse Resp BP Pulse Ox 03/25/19 08:09 102 H 03/25/19 08:00 96 03/25/19 07:29 98.9 F 102 H 18 156/81 H 96 Weight Admit Weight 329 lb 11.2 oz Weight 329 lb 11.2 oz I&O: 03/24/19 03/25/19 03/26/19 06:59 06:59 06:59 Intake Total 2640 2930 360 Balance 2640 2930 360 Result Diagrams: 03/24/19 05:30 03/25/19 07:44 Hospitalist ROS - Medication Medications: Active Medications Generic Name Dose Route Start Last Admin Trade Name Freq PRN Reason Stop Dose Admin Acetaminophen 650 mg 02/28/19 18:57 03/25/19 01:13 Tylenol PO 650 mg Q4H PRN Administration Headache/Fever/Mild Pain (1-3) Hydrocodone Bitart/Acetaminophen 2 tab 03/21/19 16:05 03/25/19 13:54 [place] 7.5/325 PO 2 tab Q4H PRN Administration Moderate Pain (4-6) Hydrocodone Bitart/Acetaminophen 1 tab 03/21/19 16:05 03/21/19 16:22 [place] 7.5/325 PO 1 tab Q4H PRN Administration Mild Pain (1-3) Amlodipine Besylate 10 mg 03/06/19 09:00 03/25/19 08:09 Norvasc PO 10 mg DAILY KERRY Administration Ascorbic Acid 500 mg 03/05/19 09:00 03/25/19 08:09 Vitamin C PO 500 mg DAILY KERRY Administration Diphenhydramine HCl 50 mg 03/10/19 10:07 03/16/19 10:30 Benadryl PO 50 mg Q6HR PRN Administration Itching & Insomnia Diphenhydramine HCl 50 mg 03/22/19 21:00 03/24/19 20:22 Benadryl PO 50 mg HS KERRY Administration Enoxaparin Sodium 40 mg 03/01/19 09:00 03/25/19 08:08 Lovenox SC 40 mg 0900 KERRY Administration Famotidine 20 mg 02/28/19 21:00 03/25/19 08:08 Pepcid PO 20 mg BID KERRY Administration Hydralazine HCl 10 mg 03/05/19 09:39 03/05/19 20:28 Apresoline SLOW IVP 10 mg Q4H PRN Administration SBP>170, DBP>100 Hydroxyzine HCl 25 mg 02/28/19 20:31 03/25/19 01:04 Atarax PO 25 mg Q6H PRN Administration Itching Hydroxyzine HCl 10 mg 03/11/19 15:00 03/25/19 13:52 Atarax PO 10 mg TID KERRY Administration Vancomycin HCl 2 gm/ Sodium 500 mls @ 250 mls/hr 03/23/19 22:00 03/25/19 14: 25 Chloride IVPB 500 mls Q8HR KERRY Administration Minocycline HCl 100 mg 03/19/19 21:00 03/25/19 08:08 Minocycline Hcl PO 100 mg BID KERRY Administration Morphine Sulfate 2 mg 03/22/19 11:57 03/24/19 11:23 Morphine SLOW IVP 2 mg DAILY PRN Administration Mild-Moderate Pain (1-5) Nystatin 0 gm 03/14/19 21:00 03/25/19 08:11 Mycostatin Cream TOP 1 gm BID KERRY Administration Ondansetron HCl 4 mg 03/10/19 08:39 03/25/19 08:52 Zofran IVP 4 mg Q6H PRN Administration Nausea/Vomiting Pantoprazole Sodium 40 mg 03/05/19 09:00 03/25/19 08:09 Protonix PO 40 mg DAILY KERRY Administration Prednisone 60 mg 03/01/19 08:00 03/25/19 08:09 Prednisone PO 60 mg QAM-WM KERRY Administration Sertraline HCl 50 mg 03/01/19 21:00 03/24/19 20:23 Zoloft PO 50 mg HS KERRY Administration Sodium Chloride 10 ml 02/28/19 18:57 03/25/19 08:09 Flush - Normal Saline IVF 10 ml PRN PRN Administration Saline Flush Triamcinolone Acetonide 0 gm 03/01/19 09:00 03/25/19 08:11 Kenalog 0.1% Ointment TOP 1 applic BID KERRY Administration Zinc Sulfate 220 mg 03/05/19 09:00 03/25/19 08:08 Zinc Sulfate PO 220 mg DAILY KERRY Administration - Exam General Appearance: awake alert General - other findings: morbidly obese. no distress, afebrile Eye: anicteric sclera ENT: normocephalic atraumatic, moist mucosa Neck: supple, symmetric, no JVD Heart: RRR Heart - other findings: tachycardic Respiratory: no wheezes, no rales, no ronchi, normal chest expansion Gastrointestinal: soft, non-tender, non-distended, normal bowel sounds Extremities - other findings: trace leg edema Skin - other findings: scattered blistered most deroofed with patchy erythema Neurological: cranial nerve grossly intact, no focal deficits Psychiatric: A&O x 3 Hosp A/P (1) MRSA bacteremia Code(s): R78.81 - BACTEREMIA Status: Acute (2) Cellulitis Code(s): L03.90 - CELLULITIS, UNSPECIFIED Status: Acute (3) 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 Get repeat blood culture Analgesic as needed to continue. Antiemetic as needed
[2019-03-25] MEDS: diphenhydrAMINE 50 MG CAP PO PRN (17:03)
[2019-03-25] MEDS ORDERED: Sodium Bicarbonate Tab 325 MG TAB PO SCH (18:30)
[2019-03-25] MEDS: diphenhydrAMINE 12.5 MG/5 ML UDCUP PO SCH (20:23)
[2019-03-25] MEDS: Sodium Bicarbonate Tab 325 MG TAB PO SCH (20:39)
[2019-03-25 22:15] LABS: Vancomycin, Trough 11.9 ug/mL
[2019-03-25] MEDS: Nystatin Powder 15 GM BOT TOP SCH (22:31)
[2019-03-26] MEDS: Vancomycin HCl 1.75 GM in Sodium Chloride 0.9% 500 ML IVPB SCH ×4 (04:03→21:46)
[2019-03-26] MEDS: Ondansetron PF 4 MG/2 ML Vial IVP PRN ×2 (04:08→10:19)
[2019-03-26 07:34] LABS: Albumin 3.3 g/dL (3.5-5.0); Anion Gap 15 mmol/L (10-20); BUN (Urea Nitrogen) 11 mg/dL (7.0-18.7); BUN/Creatinine Ratio 13.92; Calc. Creatinine Clearance 223 mL/min (70-130); Calcium 8.6 mg/dL (7.8-10.44); Carbon Dioxide 26 mmol/L (22-29); Chloride 97 mmol/L (98-107); Estimated GFR-MDRD 81; Glucose 99 mg/dL (70-105); Phosphorus 2.4 mg/dL (2.3-4.7); Sodium 134 mmol/L (136-145)
[2019-03-26 08:03] LABS: Band 11 % (5-11); Eosinophils 2 % (0-10); Hemoglobin 10.5 g/dL (12.0-16.0); Hypochromia SLIGHT = 6-15 cells (100X) (0-5/hpf); Large Platelets SLIGHT; Lymphocytes 23 % (21-51); MDiff Complete? YES; Mean Corpuscular HGB CONC 32.9 g/dL (32.0-36.0); Mean Corpuscular Hemoglobin 27.6 pg (27.0-31.0); Mean Corpuscular Volume 83.8 fL (78.0-98.0); Metamyelocyte 4 % (0-0); Monocytes 12 % (0-10); Neutrophil 48 % (42-75); Nucleated RBC 1 % (0); Platelet Count 247 thou/uL (130-400); Platelet Morphology Comment Appears Adequate; Polychromasia SLIGHT = 2-3 cells (100X) (0-2/hpf); RBC Distribution Width 14.4 % (11.5-14.5); Vacuoles MODERATE
[2019-03-26] MEDS: Minocycline HCl 50 MG CAP PO SCH ×2 (08:56→21:47)
[2019-03-26] MEDS: Amlodipine 10 MG TAB PO SCH (08:56)
[2019-03-26] MEDS: Famotidine 20 MG TAB PO SCH ×2 (08:56→21:46)
[2019-03-26] MEDS: predniSONE 20 MG TAB PO SCH (08:58)
[2019-03-26] MEDS: hydrOXYzine 10 MG TAB PO SCH ×3 (08:58→21:46)
[2019-03-26] MEDS: Zinc Sulfate 220 MG CAP PO SCH (08:58)
[2019-03-26] MEDS: Sodium Bicarbonate Tab 325 MG TAB PO SCH (08:58)
[2019-03-26] MEDS: Ascorbic Acid 500 mg Chewable Tablet PO SCH (08:58)
[2019-03-26] MEDS: Nystatin Powder 15 GM BOT TOP SCH ×2 (08:59→21:54)
[2019-03-26] MEDS: Acetaminophen 325 MG TAB PO PRN (09:08)
[2019-03-26] MEDS: Enoxaparin Sodium 40 MG/0.4 ML SYRINGE SC SCH (10:20)
[2019-03-26] MEDS ORDERED: Acetaminophen 325 MG TAB PO PRN (21:45)
[2019-03-26] MEDS: diphenhydrAMINE 12.5 MG/5 ML UDCUP PO SCH (21:47)
[2019-03-26] MEDS ORDERED: Senokot S 8.6-50 MG TAB PO PRN (21:48)
[2019-03-26] MEDS ORDERED: hydrOXYzine 25 MG TAB PO PRN (21:48)
[2019-03-26] MEDS ORDERED: hydrALAZINE 20 MG/ML VIAL SLOW IVP PRN (21:50)
[2019-03-26] MEDS ORDERED: Ondansetron PF 4 MG/2 ML Vial IVP PRN (21:51)
[2019-03-26] MEDS ORDERED: HYDROcodone/Acetaminophen 7.5/325 mg Tablet PO PRN (21:51)
[2019-03-26] MEDS ORDERED: Morphine 2 MG/ML SYRINGE SLOW IVP PRN (21:52)
[2019-03-27] MEDS: Vancomycin HCl 1.75 GM in Sodium Chloride 0.9% 500 ML IVPB SCH ×2 (03:55→11:32)
[2019-03-27] MEDS: predniSONE 20 MG TAB PO SCH (08:48)
[2019-03-27] MEDS: Zinc Sulfate 220 MG CAP PO SCH (08:49)
[2019-03-27] MEDS: Famotidine 20 MG TAB PO SCH ×2 (08:50→21:11)
[2019-03-27] MEDS: Ascorbic Acid 500 mg Chewable Tablet PO SCH (08:50)
[2019-03-27] MEDS: Amlodipine 10 MG TAB PO SCH (08:50)
[2019-03-27] MEDS: hydrOXYzine 10 MG TAB PO SCH ×3 (08:50→21:12)
[2019-03-27] MEDS: HYDROcodone/Acetaminophen 7.5/325 mg Tablet PO PRN (08:51)
[2019-03-27] MEDS: Enoxaparin Sodium 40 MG/0.4 ML SYRINGE SC SCH (08:52)
[2019-03-27] MEDS: Nystatin Powder 15 GM BOT TOP SCH ×2 (08:53→21:12)
[2019-03-27] MEDS: Minocycline HCl 50 MG CAP PO SCH ×2 (10:17→21:35)
[2019-03-27 10:30] LABS: Vancomycin, Trough 30.4 ug/mL
[2019-03-27 11:57] LABS: ALT (SGPT) 169 U/L (8-55); AST (SGOT) 67 U/L (5-34); Albumin 3.1 g/dL (3.5-5.0); Alkaline Phosphatase 128 U/L (40-110); Anion Gap 16 mmol/L (10-20); BUN (Urea Nitrogen) 14 mg/dL (7.0-18.7); Bilirubin, Total 0.5 mg/dL (0.2-1.2); CRP (Inflammatory) 10.35 mg/dL (= or < 0.5); Calc. Creatinine Clearance 188 mL/min (70-130); Calcium 8.1 mg/dL (7.8-10.44); Carbon Dioxide 21 mmol/L (22-29); Chloride 97 mmol/L (98-107); Estimated GFR-MDRD 66; Globulin 2.5 g/dL (2.4-3.5); Glucose 154 mg/dL (70-105); Potassium 4.4 mmol/L (3.5-5.1); Protein, Total 5.6 g/dL (6.0-8.3); Sodium 130 mmol/L (136-145)
[2019-03-27 13:53] LABS: Hemoglobin 10.6 g/dL (12.0-16.0); Mean Corpuscular Hemoglobin 26.9 pg (27.0-31.0); Mean Corpuscular Volume 84.2 fL (78.0-98.0); Mean Platelet Volume 8.6 fL (7.4-10.4); Platelet Count 225 thou/uL (130-400); RBC Distribution Width 14.2 % (11.5-14.5); Red Blood Cell (RBC) Count 3.95 mill/uL (4.20-5.40); White Blood Cell (WBC) Count 21.1 thou/uL (4.8-10.8)
[2019-03-27 14:13] LABS: Vancomycin, Random 17.2 ug/mL (See Comment)
[2019-03-27 14:20] LABS: Band 31 % (5-11); Eosinophils 2 % (0-10); Hypochromia SLIGHT = 6-15 cells (100X) (0-5/hpf); Lymphocytes 18 % (21-51); MDiff Complete? YES; Metamyelocyte 3 % (0-0); Monocytes 5 % (0-10); Myelocyte 5 % (0-0); Neutrophil 31 % (42-75); Ovalocytes SLIGHT = 2-5 cells (100X) (0-1/hpf); Platelet Morphology Comment Appears Adequate; Polychromasia SLIGHT = 2-3 cells (100X) (0-2/hpf); Reactive Lymphocytes 5 % (0-10); Schistocytes SLIGHT = 2-5 cells (100X) (0-1/hpf); Toxic Granulation SLIGHT; Vacuoles SLIGHT
[2019-03-27] MEDS: Vancomycin 1.5 GRAM/300 ML BAG 1.5 GM in Premix Bag 1 BAG IVPB SCH ×2 (15:29→21:15)
--- NOTE | 2019-03-27 17:35 | PDOC.HOSPP ---
- Subjective Encounter Date: 03/27/19 Encounter Time: 17:33 Subjective: 38 y/o female with morbid obesity, pemphigus foliceaus, HTN and nephrolithiasis admitted with fever, chills and malaise as well multiple skin lesions. Initially started on antibiotics for possible cellulitis but was later found to have untreated persistent MRSA bacteremia. On antibiotics with improvement but later developed subjective fever, nausea, abdominal pain. Had temp of 100.8 last night. Still with ill feeling and nausea and abdominal pain. - Objective Vital Signs & Weight: Vital Signs (12 hours) Temp Pulse Resp BP BP BP Pulse Ox 03/27/19 16:06 98.9 F 106 H 16 158/77 H 03/27/19 11:45 99.0 F 99 18 156/81 H 94 L 03/27/19 10:20 116 H 03/27/19 08:50 121 H 120/70 03/27/19 08:00 95 03/27/19 07:38 100.8 F H 121 H 18 120/70 95 Weight Admit Weight 329 lb 11.2 oz Weight 329 lb 11.2 oz I&O: 03/26/19 03/27/19 03/28/19 06:59 06:59 06:59 Intake Total 720 4390 Balance 720 4390 Result Diagrams: 03/27/19 13:40 03/27/19 11:13 Hospitalist ROS - Medication Medications: Active Medications Generic Name Dose Route Start Last Admin Trade Name Freq PRN Reason Stop Dose Admin Hydrocodone Bitart/Acetaminophen 2 tab 03/26/19 21:51 03/27/19 08:51 [place] 7.5/325 PO 2 tab Q4H PRN Administration Moderate Pain (4-6) Amlodipine Besylate 10 mg 03/27/19 09:00 03/27/19 08:50 Norvasc PO 10 mg DAILY KERRY Administration Ascorbic Acid 500 mg 03/27/19 09:00 03/27/19 08:50 Vitamin C PO 500 mg DAILY KERRY Administration Diphenhydramine HCl 50 mg 03/10/19 10:07 03/25/19 17:03 Benadryl PO 50 mg Q6HR PRN Administration Itching & Insomnia Enoxaparin Sodium 40 mg 03/27/19 09:00 03/27/19 08:52 Lovenox SC 40 mg 0900 KERRY Administration Famotidine 20 mg 03/27/19 09:00 03/27/19 08:50 Pepcid PO 20 mg BID KERRY Administration Hydroxyzine HCl 10 mg 03/27/19 09:00 03/27/19 15:29 Atarax PO 10 mg TID KERRY Administration Vancomycin HCl 1.5 gm/ Device 300 mls @ 200 mls/hr 03/27/19 14:00 03/27/19 15 :29 IVPB 300 mls Q8HR KERRY Administration Metoprolol Succinate 50 mg 03/27/19 09:00 03/27/19 08:49 Toprol Xl PO 50 mg DAILY KERRY Administration Minocycline HCl 100 mg 03/19/19 21:00 03/27/19 10:17 Minocycline Hcl PO 100 mg BID KERRY Administration Morphine Sulfate 2 mg 03/26/19 21:52 03/27/19 12:20 Morphine SLOW IVP 2 mg DAILY PRN Administration Mild-Moderate Pain (1-5) Nystatin 0 gm 03/25/19 21:00 03/27/19 08:53 Mycostatin Powder TOP 1 applic BID KERRY Administration Ondansetron HCl 4 mg 03/26/19 21:51 03/27/19 08:45 Zofran IVP 4 mg Q6H PRN Administration Nausea/Vomiting Pantoprazole Sodium 40 mg 03/27/19 09:00 03/27/19 08:50 Protonix PO 40 mg DAILY KERRY Administration Prednisone 60 mg 03/27/19 08:00 03/27/19 08:48 Prednisone PO 60 mg QAM-WM KERRY Administration Triamcinolone Acetonide 0 gm 03/01/19 09:00 03/27/19 08:54 Kenalog 0.1% Ointment TOP 1 applic BID KERRY Administration Zinc Sulfate 220 mg 03/27/19 09:00 03/27/19 08:49 Zinc Sulfate PO 220 mg DAILY KERRY Administration - Exam General Appearance: awake alert General - other findings: morbidly obese Eye: anicteric sclera ENT: normocephalic atraumatic, moist mucosa Neck: symmetric, no JVD Heart: RRR Heart - other findings: tachycardic Respiratory: no wheezes, no ronchi, normal chest expansion, no tachypnea Gastrointestinal: soft, non-distended, normal bowel sounds Gastrointestinal - other findings: diffuse abdominal tenderness Extremities: no cyanosis, no edema Skin - other findings: scattered skin rash with exfoliation and patchy erythema , deroofed boils Neurological: cranial nerve grossly intact, no focal deficits Psychiatric: A&O x 3 Hosp A/P (1) MRSA bacteremia Code(s): R78.81 - BACTEREMIA Status: Acute (2) Cellulitis Code(s): L03.90 - CELLULITIS, UNSPECIFIED Status: Acute (3) Pemphigus foliaceous Code(s): L10.2 - PEMPHIGUS FOLIACEOUS Status: Acute (4) Sepsis Code(s): A41.9 - SEPSIS, UNSPECIFIED ORGANISM Status: Acute (5) HTN (hypertension) Code(s): I10 - ESSENTIAL (PRIMARY) HYPERTENSION Status: Chronic (6) Morbid obesity Code(s): E66.01 - MORBID (SEVERE) OBESITY DUE TO EXCESS CALORIES Status: Chronic (7) Anemia Code(s): D64.9 - ANEMIA, UNSPECIFIED Status: Acute (8) Left nephrolithiasis Code(s): N20.0 - CALCULUS OF KIDNEY Status: Acute (9) Iron deficiency anemia Code(s): D50.9 - IRON DEFICIENCY ANEMIA, UNSPECIFIED Status: Acute (10) Abnormal LFTs (liver function tests) Code(s): R94.5 - ABNORMAL RESULTS OF LIVER FUNCTION STUDIES Status: Acute (11) Transaminitis Code(s): R74.0 - NONSPEC ELEV OF LEVELS OF TRANSAMNS & LACTIC ACID DEHYDRGNSE Status: Acute (12) Abdominal pain Code(s): R10.9 - UNSPECIFIED ABDOMINAL PAIN Status: Acute - Plan Continue IV vancomycin. Will add zosyn for possible intra abdominal infection given new onset SIRS and abnormal LFT. Get liver US. Analgesic as needed to continue. Antiemetic as needed
[2019-03-27] MEDS: diphenhydrAMINE 12.5 MG/5 ML UDCUP PO SCH (21:11)
[2019-03-27] MEDS: metroNIDAZOLE 500 MG in Premix Bag 1 BAG IVPB SCH (21:13)
[2019-03-28] MEDS: metroNIDAZOLE 500 MG in Premix Bag 1 BAG IVPB SCH ×3 (05:28→21:04)
[2019-03-28] MEDS: Vancomycin 1.5 GRAM/300 ML BAG 1.5 GM in Premix Bag 1 BAG IVPB SCH ×3 (05:29→22:55)
[2019-03-28 06:22] LABS: AST (SGOT) 46 U/L (5-34); Alkaline Phosphatase 111 U/L (40-110); Anion Gap 17 mmol/L (10-20); BUN (Urea Nitrogen) 13 mg/dL (7.0-18.7); Bilirubin, Total 0.5 mg/dL (0.2-1.2); Calc. Creatinine Clearance 213 mL/min (70-130); Carbon Dioxide 19 mmol/L (22-29); Chloride 104 mmol/L (98-107); Estimated GFR-MDRD 76; Globulin 2.6 g/dL (2.4-3.5); Glucose 97 mg/dL (70-105); Potassium 4.6 mmol/L (3.5-5.1); Protein, Total 5.6 g/dL (6.0-8.3); Sodium 135 mmol/L (136-145)
[2019-03-28 07:00] LABS: ALT (SGPT) 156 U/L (8-55)
--- NOTE | 2019-03-28 07:53 | ULT ---
Gallbladder ultrasound: Multiple grayscale images of right upper quadrant obtained according to protocol. INDICATION: Pain FINDINGS: Liver: Hepatic steatosis. Gallbladder: Cholelithiasis. Gallbladder wall: Normal. Hawk's Sign: Positive. Common bile duct is not visualized for comment Ascites: None IMPRESSION: Cholelithiasis. Positive Hawk sign is reported. Recommend clinical correlation to exclude signs/sym ptoms of developing cholecystitis. Common duct is not visualized for comment. Hepatic steatosis
[2019-03-28] MEDS: Amlodipine 10 MG TAB PO SCH (08:09)
[2019-03-28] MEDS: hydrOXYzine 10 MG TAB PO SCH ×3 (08:09→21:03)
[2019-03-28] MEDS: Zinc Sulfate 220 MG CAP PO SCH (08:09)
[2019-03-28] MEDS: predniSONE 20 MG TAB PO SCH (08:09)
[2019-03-28] MEDS: Famotidine 20 MG TAB PO SCH (08:09)
[2019-03-28] MEDS: Ascorbic Acid 500 mg Chewable Tablet PO SCH (08:10)
[2019-03-28] MEDS: Enoxaparin Sodium 40 MG/0.4 ML SYRINGE SC SCH (08:10)
[2019-03-28] MEDS: Nystatin Powder 15 GM BOT TOP SCH ×2 (08:12→21:00)
[2019-03-28] MEDS ORDERED: Activase 2 MG VIAL CATH SCH (08:45)
--- NOTE | 2019-03-28 08:50 | PRG ---
DATE OF SERVICE: 03/28/2019 SUBJECTIVE: Charisse has temperature elevation low grade, and as usual she is sitting by the bedside and feels about the same. Denied headaches. No vomiting. No abdominal pain. No respiratory symptoms. The skin she states is about the same objectively, seems to be improving. OBJECTIVE: VITAL SIGNS: Her T-max peaked at 100.8 at 7:00 a.m., blood pressure is 140/80, pulse 92, respirations 16 to 20, O2 saturation 99%. SKIN: Shows improvement of lesions. Facial area has improved markedly and the lesions are drying up in the chest and abdomen. She has a PICC line in the left upper extremity. HEENT: The ocular movements are conjugate. Oral cavity not remarkable. LUNGS: Clear to auscultation and percussion. ABDOMEN: Soft, not distended, tender. EXTREMITIES: She has 1+ edema in lower extremities. LABORATORY DATA: White cell count of 21,000, hemoglobin 10.6, platelets 235,91% neutrophils, 31% bands, 3% metamyelocytes, and 1% myelocytes. Abdomen and pelvis CT was done on the and it showed no calculus in the right kidney. In the left kidney, there is a 12 x 15 x 8 mm calculus without hydronephrosis. No major pathology was identified in the remainder organs. Mild hepatomegaly. There is a moderate volume of colonic stool throughout large intestine with constipation. The gallbladder was distended, but there was no evidence of mural thickening. This was a noncontrast study. Echocardiogram showed EF of 55% to 60% and no major valvular abnormalities or pericardial effusion. Microbiology without the previous positive blood cultures. Now, repeat blood cultures from the had no growth. ASSESSMENT AND DISCUSSION: Pemphigus foliaceus, on immunosuppressive treatment with prednisone. She is also on minocycline. There has been improvement in the overall intensity of the lesions from last blistering than previously noted. She has developed transient temp elevation with leukemoid reaction or leukoerythroblastic reaction. Thus, it is not an obvious focal inflammatory process at this time outside the skin areas and main concern would be colonization of the PICC line. We will go ahead and repeat the blood cultures. Imaging studies have been completed and we will go ahead and repeat a chest x-ray, and check in view of her complicated dermatological condition, she would need expert dermatological consultation and followup. I would advise transfer to center where she can have dermatology consultation for this autoimmune syndrome. Job ID: [id number] AMAN
--- NOTE | 2019-03-28 10:36 | RAD ---
Exam: Chest one view HISTORY:Fever Comparison: 02/28/2019 FINDINGS: Lungs: No masses or consolidation. There is a left PICC line with tip overlying cavoatrial junction. Cardiac silhouette: Normal size Pulmonary vessels: Normal Pleural Spaces: Clear Pneumothorax: None Osseous abnormalities: None of acuity. IMPRESSION: No focal consolidation.
[2019-03-28] MEDS: Sodium Chloride 0.9% 1,000 ML IV SCH ×2 (11:46→21:00)
[2019-03-28] MEDS: Minocycline HCl 50 MG CAP PO SCH ×2 (11:46→21:12)
--- NOTE | 2019-03-28 13:51 | PDOC.HOSPP ---
- Subjective Encounter Date: 03/28/19 Encounter Time: 10:49 Subjective: 38 y/o female with morbid obesity, pemphigus foliceaus, HTN and nephrolithiasis admitted with fever, chills and malaise as well multiple skin lesions. Initially started on antibiotics for possible cellulitis but was later found to have untreated persistent MRSA bacteremia. On antibiotics with improvement but later developed fever, nausea, abdominal pain associated with nausea and vomiting. Liver US showed cholelithiasis. Started on Flagyl and levaquin last night for possible biliary infection. Feeling better today - Objective Vital Signs & Weight: Vital Signs (12 hours) Temp Pulse Resp BP BP Pulse Ox 03/28/19 08:09 120 H 121/59 L 03/28/19 08:00 100 03/28/19 07:26 98.6 F 120 H 20 121/59 L 100 Weight Admit Weight 329 lb 11.2 oz Weight 329 lb 11.2 oz I&O: 03/27/19 03/28/19 03/29/19 06:59 06:59 06:59 Intake Total 4390 1400 Balance 4390 1400 Result Diagrams: 03/27/19 13:40 03/28/19 05:42 Hospitalist ROS - Medication Medications: Active Medications Generic Name Dose Route Start Last Admin Trade Name Freq PRN Reason Stop Dose Admin Acetaminophen 650 mg 03/26/19 21:45 03/27/19 21:12 Tylenol PO 650 mg Q4H PRN Administration Headache/Fever/Mild Pain (1-3) Hydrocodone Bitart/Acetaminophen 2 tab 03/26/19 21:51 03/27/19 08:51 [place] 7.5/325 PO 2 tab Q4H PRN Administration Moderate Pain (4-6) Amlodipine Besylate 10 mg 03/27/19 09:00 03/28/19 08:09 Norvasc PO 10 mg DAILY KERRY Administration Ascorbic Acid 500 mg 03/27/19 09:00 03/28/19 08:10 Vitamin C PO 500 mg DAILY KERRY Administration Diphenhydramine HCl 50 mg 03/10/19 10:07 03/25/19 17:03 Benadryl PO 50 mg Q6HR PRN Administration Itching & Insomnia Diphenhydramine HCl 50 mg 03/27/19 21:00 03/27/19 21:11 Benadryl PO 50 mg HS KERRY Administration Enoxaparin Sodium 40 mg 03/27/19 09:00 03/28/19 08:10 Lovenox SC 40 mg 0900 KERRY Administration Famotidine 20 mg 03/27/19 09:00 03/28/19 08:09 Pepcid PO 20 mg BID KERRY Administration Hydroxyzine HCl 25 mg 03/26/19 21:48 03/28/19 00:13 Atarax PO 25 mg Q6H PRN Administration Itching Hydroxyzine HCl 10 mg 03/27/19 09:00 03/28/19 08:09 Atarax PO 10 mg TID KERRY Administration Vancomycin HCl 1.5 gm/ Device 300 mls @ 200 mls/hr 03/27/19 14:00 03/28/19 05 :29 IVPB 300 mls Q8HR KERRY Administration Metronidazole 500 mg/ Device 100 mls @ 100 mls/hr 03/27/19 22:00 03/28/19 05: 28 IVPB 100 mls Q8HR KERRY Administration Sodium Chloride 1,000 mls @ 100 mls/hr 03/28/19 11:15 03/28/19 11:46 Normal Saline 0.9% IV 1,000 mls .Q10H KERRY Administration Metoprolol Succinate 50 mg 03/27/19 09:00 03/28/19 08:10 Toprol Xl PO 50 mg DAILY KERRY Administration Minocycline HCl 100 mg 03/19/19 21:00 03/28/19 11:46 Minocycline Hcl PO 100 mg BID KERRY Administration Morphine Sulfate 2 mg 03/26/19 21:52 03/27/19 12:20 Morphine SLOW IVP 2 mg DAILY PRN Administration Mild-Moderate Pain (1-5) Nystatin 0 gm 03/25/19 21:00 03/28/19 08:12 Mycostatin Powder TOP 1 applic BID KERRY Administration Pantoprazole Sodium 40 mg 03/27/19 09:00 03/28/19 08:10 Protonix PO 40 mg DAILY KERRY Administration Prednisone 60 mg 03/27/19 08:00 03/28/19 08:09 Prednisone PO 60 mg QAM-WM KERRY Administration Sertraline HCl 50 mg 03/27/19 21:00 03/27/19 21:11 Zoloft PO 50 mg HS KERRY Administration Triamcinolone Acetonide 0 gm 03/01/19 09:00 03/28/19 08:12 Kenalog 0.1% Ointment TOP 1 applic BID KERRY Administration Zinc Sulfate 220 mg 03/27/19 09:00 03/28/19 08:09 Zinc Sulfate PO 220 mg DAILY KERRY Administration - Exam General Appearance: awake alert General - other findings: obese Eye: anicteric sclera ENT: normocephalic atraumatic, dry oral mucosa Neck: supple, symmetric Heart: RRR Heart - other findings: tachycardic Respiratory: no wheezes, no ronchi, normal chest expansion Gastrointestinal: soft, non-distended, normal bowel sounds, tender to palpation Extremities: no edema Skin - other findings: resolving skin rash and erythema. No new eruption noted Neurological: cranial nerve grossly intact, no focal deficits Psychiatric: A&O x 3 Hosp A/P (1) MRSA bacteremia Code(s): R78.81 - BACTEREMIA Status: Acute (2) Cellulitis Code(s): L03.90 - CELLULITIS, UNSPECIFIED Status: Acute (3) Pemphigus foliaceous Code(s): L10.2 - PEMPHIGUS FOLIACEOUS Status: Acute (4) Sepsis Code(s): A41.9 - SEPSIS, UNSPECIFIED ORGANISM Status: Acute (5) HTN (hypertension) Code(s): I10 - ESSENTIAL (PRIMARY) HYPERTENSION Status: Chronic (6) Morbid obesity Code(s): E66.01 - MORBID (SEVERE) OBESITY DUE TO EXCESS CALORIES Status: Chronic (7) Anemia Code(s): D64.9 - ANEMIA, UNSPECIFIED Status: Acute (8) Left nephrolithiasis Code(s): N20.0 - CALCULUS OF KIDNEY Status: Acute (9) Iron deficiency anemia Code(s): D50.9 - IRON DEFICIENCY ANEMIA, UNSPECIFIED Status: Acute (10) Abnormal LFTs (liver function tests) Code(s): R94.5 - ABNORMAL RESULTS OF LIVER FUNCTION STUDIES Status: Acute (11) Transaminitis Code(s): R74.0 - NONSPEC ELEV OF LEVELS OF TRANSAMNS & LACTIC ACID DEHYDRGNSE Status: Acute (12) Abdominal pain Code(s): R10.9 - UNSPECIFIED ABDOMINAL PAIN Status: Acute (13) Acute calculous cholecystitis Code(s): K80.00 - CALCULUS OF GALLBLADDER W ACUTE CHOLECYST W/O OBSTRUCTION Status: Suspected - Plan Continue IV vancomycin, Levaquin and flagyl. Consult Gen surgery Start IVF as patient is NPO Analgesic as needed to continue. Antiemetic as needed
[2019-03-28 14:07] LABS: Mean Corpuscular HGB CONC 33.6 g/dL (32.0-36.0); Mean Corpuscular Volume 83.3 fL (78.0-98.0); Mean Platelet Volume 9.3 fL (7.4-10.4); Platelet Count 205 thou/uL (130-400); RBC Distribution Width 14.2 % (11.5-14.5); Red Blood Cell (RBC) Count 3.56 mill/uL (4.20-5.40); White Blood Cell (WBC) Count 17.8 thou/uL (4.8-10.8)
[2019-03-28 14:25] LABS: Vancomycin, Trough 15.9 ug/mL
[2019-03-28 14:30] LABS: Band 30 % (5-11); Eosinophils 2 % (0-10); Lymphocytes 20 % (21-51); MDiff Complete? YES; Metamyelocyte 1 % (0-0); Monocytes 3 % (0-10); Myelocyte 3 % (0-0); Neutrophil 35 % (42-75); Ovalocytes SLIGHT = 2-5 cells (100X) (0-1/hpf); Platelet Morphology Comment Appears Adequate; Polychromasia SLIGHT = 2-3 cells (100X) (0-2/hpf); Reactive Lymphocytes 6 % (0-10); Vacuoles SLIGHT
--- NOTE | 2019-03-28 17:13 | CON ---
DATE OF CONSULTATION: HISTORY OF PRESENT ILLNESS: A 38-year-old female who is admitted this hospitalization, 02/28/2019. Hospitalist service seen by Dr. Barrios, has a chronic dermatological diagnosis of pemphigus foliaceus. The patient has been evaluated at [facility], has been followed by ID doctor, but admitted because [facility] revealed a temperature to 101 degrees, tachycardia, hypertensive, dyspneic, started on fluids and antibiotics. Initially, she was to be transferred to [place], but there was no bed availability and she is transferred locally. Dr. Barrios has been seeing her. I have been consulted because of cholelithiasis. The patient reports a several month history of episodic right upper quadrant pain occurring postprandial. CT scan of the abdomen and pelvis was unremarkable. There are no inflammatory biliary changes. There is no obstructive uropathy. She has a history of appendectomy. She had abdominal ultrasound 03/28/2019 demonstrating hepatic steatosis, cholelithiasis, positive Hawk sign. She had a PICC line placed 03/01/2019. She has been on intravenous antibiotics and steroids. I have been asked to see her regarding her gallbladder problems. The patient is hungry and wants to eat. She was scheduled for laparoscopic cholecystectomy today, but there is lack of OR resources and thus rescheduled New day for laparoscopic cholecystectomy cholangiograms. The biliary tree unable to be evaluated on ultrasound, but there is no evidence of biliary dilatation on CAT scan. White count is 17, hemoglobin 10. Liver function tests; normal bilirubin, AST and ALT 46 and 156, alkaline phosphatase slightly elevated. ALLERGIES: CEFTRIAXONE, DIAZEPAM, SILVADENE. HABITS: Tobacco, none. Alcohol, none. MEDICATIONS: As outpatient, 1. Prednisone 60 mg a day. 2. Atarax 25 mg q.i.d. 3. Triamcinolone topical. 4. Sulfa b.i.d. 5. Sertraline 50 at bedtime. 6. Nystatin b.i.d. 7. Hydrocortisone cream b.i.d. p.r.n. 8. Doxycycline 100 mg q.12. 9. Amlodipine 5 mg daily. PAST SURGICAL HISTORY: Appendectomy, eardrum transplant. She has two children. Three pregnancies. REVIEW OF SYSTEMS: Otherwise noncontributory except for hypertension, obesity, pemphigus, and nephrolithiasis. PHYSICAL EXAMINATION: VITAL SIGNS: Height 5 feet 8 inches, 329 pounds, 50 BMI, 120 heart rate, and blood pressure 121/59. HEAD, EARS, EYES, NOSE AND THROAT: Unremarkable. LUNGS: Clear to auscultation. CARDIAC: Regular rate and rhythm without murmur or gallop. ABDOMEN: Soft, obese, tender in right upper quadrant. EXTREMITIES: Unremarkable. Multiple skin lesions. ASSESSMENT/PLAN: 1. Cholecystitis, cholelithiasis chronic. The patient reports her skin condition is relatively less severe than usual. We would recommend laparoscopic cholecystectomy. Risks of infection, bleeding, reoperation discussed. She consents. 2. Dermatological condition per Dr. Barrios, Medical. 3. Obesity. 4. Hypertension. 5. History of urolithiasis. 6. Morbid obesity, metabolic syndrome. Job ID: [id number]
[2019-03-28] MEDS: diphenhydrAMINE 12.5 MG/5 ML UDCUP PO SCH (21:04)
[2019-03-29] MEDS: metroNIDAZOLE 500 MG in Premix Bag 1 BAG IVPB SCH ×3 (06:20→21:26)
[2019-03-29] MEDS: Vancomycin 1.5 GRAM/300 ML BAG 1.5 GM in Premix Bag 1 BAG IVPB SCH ×2 (07:32→15:30)
[2019-03-29] MEDS: Sodium Chloride 0.9% 1,000 ML IV SCH (07:34)
[2019-03-29] MEDS ORDERED: Lidocaine 1% w/Epinephrine 1:100K 20 ML VIAL ONE (07:54)
[2019-03-29] MEDS ORDERED: Bupivacaine PF 0.5% 30 ML VIAL ONE (07:54)
[2019-03-29] MEDS ORDERED: Iothalamate Meglumine 60% 50 ML VIAL FS ONE (07:54)
[2019-03-29] MEDS ORDERED: Lidocaine 2% w/Epinephrine 1:200K 20 ML VIAL ONE (07:54)
[2019-03-29] MEDS: Enoxaparin Sodium 40 MG/0.4 ML SYRINGE SC SCH (10:16)
[2019-03-29] MEDS ORDERED: Fentanyl 100 MCG/2 ML VIAL ONE ×2 (10:29→12:30)
[2019-03-29] MEDS ORDERED: Ondansetron PF 4 MG/2 ML Vial ONE (11:13)
[2019-03-29] MEDS ORDERED: PROPOFOL 200 MG/20 ML VIAL ONE (11:13)
[2019-03-29] MEDS ORDERED: Calcium Chloride 1 GM/10 ML Abboject SYRINGE ONE (11:13)
[2019-03-29] MEDS ORDERED: Rocuronium Bromide 10 MG/ML (10ML VIAL) ONE (11:13)
[2019-03-29] MEDS ORDERED: ePHEDrine/0.9% NaCl/PF SYRINGE 50 mg/10 ml ONE (11:13)
[2019-03-29] MEDS ORDERED: Succinylcholine Chloride 20 MG/ML 10 ml SYRINGE FS ONE (11:13)
[2019-03-29] MEDS ORDERED: PHENYLEPHRINE-NS 100 MCG/ML 10 ML SYRINGE ONE (11:13)
[2019-03-29] MEDS ORDERED: Lidocaine 1% PF 5 ML VIAL ONE (11:13)
[2019-03-29] MEDS ORDERED: Midazolam HCl 2 mg/2 ml Vial ONE (12:14)
[2019-03-29] MEDS ORDERED: traMADol HCl 50 MG TAB PO PRN ×2 (12:39)
[2019-03-29] MEDS ORDERED: Acetaminophen 500 MG TAB PO PRN (12:39)
[2019-03-29] MEDS ORDERED: Ibuprofen 600 MG TAB PO PRN (12:39)
--- NOTE | 2019-03-29 12:53 | OP ---
DATE OF PROCEDURE: 03/29/2019 PREOPERATIVE DIAGNOSES: Chronic cholecystitis and cholelithiasis, pemphigus foliaceus, chronic skin condition. POSTOPERATIVE DIAGNOSES: Chronic cholecystitis and cholelithiasis, pemphigus foliaceus, chronic skin condition. PROCEDURES PERFORMED: Laparoscopic video cholecystectomy, negative intraoperative cholangiogram. FINDINGS: Noninfected gallbladder consistent with biliary colic. ANESTHESIA: General, local 0.5% Marcaine 30 mL mixed with 1% Xylocaine with epinephrine 30 mL, 30 mL volume used. DESCRIPTION OF PROCEDURE: The patient was taken to the operating room, where under general anesthesia, abdomen was prepared with Betadine and draped in routine fashion. Local anesthetic mixture was infiltrated into the skin and subcutaneous tissue about the port sites. Supraumbilical incision was made. Pneumoperitoneum to 15 mmHg obtained with a Veress needle, replaced with a 5 port, laparoscope inserted. Right subxiphoid incision was made and 11 port placed, right subcostal incision was made at midclavicular entrance line and 5 port was placed. The fundus of the gallbladder was grasped at cephalad. Liver noted to be engorged and fatty, it was not cirrhotic. Infundibulum grasped and reflected laterally. Cystic artery and duct dissected free carefully. Critical view obtained. Cystic duct singly clipped on the gallbladder side. Opening was made in the cystic duct. Cholangiocatheter inserted. Cholangiogram was obtained using fluoroscopy revealing free flow of contrast to the duodenum without filling defects in the common bile, common hepatic, and left and right hepatic ducts. Cholangiocatheter was removed. Cystic duct stump doubly clipped. Cystic artery and duct divided. Gallbladder dissected free from liver bed obtaining good hemostasis prior to division of the final peritoneal attachments. Gallbladder and contents removed, submitted to Pathology. Good hemostasis was assured. Jackie was used. Irrigant and pneumoperitoneum evacuated. All instruments were removed. All skin incisions were approximated with interrupted subdermal 4-0 Monocryl and [place] glue applied. Job ID: [id number]
[2019-03-29 13:45] LABS: Vancomycin, Trough 27.8 ug/mL
[2019-03-29] MEDS: Minocycline HCl 50 MG CAP PO SCH ×2 (14:15→21:38)
[2019-03-29] MEDS: hydrOXYzine 10 MG TAB PO SCH ×3 (14:15→20:54)
[2019-03-29] MEDS: Ascorbic Acid 500 mg Chewable Tablet PO SCH (14:15)
[2019-03-29] MEDS: predniSONE 20 MG TAB PO SCH (14:15)
[2019-03-29] MEDS: Amlodipine 10 MG TAB PO SCH (14:15)
[2019-03-29] MEDS: Zinc Sulfate 220 MG CAP PO SCH (14:16)
[2019-03-29] MEDS: Nystatin Powder 15 GM BOT TOP SCH ×2 (14:16→21:30)
[2019-03-29] MEDS: diphenhydrAMINE 25 MG CAP PO PRN (17:09)
--- NOTE | 2019-03-29 18:29 | PDOC.HOSPP ---
- Subjective Subjective: Going down for laparoscopic cholecystectomy with Dr. Del Cid. Injure operative report later reviewed and found to be consistent with infected gallbladder removed without complications. Perioperative care in place. Diet to be resumed per general surgery. - Objective Vital Signs & Weight: Vital Signs (12 hours) Pulse Pulse Ox 03/29/19 14:15 85 03/29/19 08:00 96 Weight Admit Weight 329 lb 11.2 oz Weight 329 lb 11.2 oz I&O: 03/28/19 03/29/19 03/30/19 06:59 06:59 06:59 Intake Total 1400 Balance 1400 Result Diagrams: 03/28/19 05:42 03/28/19 05:42 Radiology Reviewed by me: Yes Hospitalist ROS - Review of Systems All other systems reviewed; all pertinent +/- noted in HPI/Subj - Medication Medications: Active Medications Generic Name Dose Route Start Last Admin Trade Name Freq PRN Reason Stop Dose Admin Hydrocodone Bitart/Acetaminophen 2 tab 03/26/19 21:51 03/27/19 08:51 [place] 7.5/325 PO 2 tab Q4H PRN Administration Moderate Pain (4-6) Hydrocodone Bitart/Acetaminophen 1 tab 03/26/19 21:51 03/29/19 15:31 [place] 7.5/325 PO 1 tab Q4H PRN Administration Mild Pain (1-3) Amlodipine Besylate 10 mg 03/27/19 09:00 03/29/19 14:15 Norvasc PO Not Given DAILY KERRY Ascorbic Acid 500 mg 03/27/19 09:00 03/29/19 14:15 Vitamin C PO Not Given DAILY KERRY Diphenhydramine HCl 50 mg 03/27/19 21:00 03/28/19 21:04 Benadryl PO 50 mg HS EKRRY Administration Diphenhydramine HCl 50 mg 03/29/19 17:15 03/29/19 17:09 Benadryl PO 50 mg Q6HR PRN Administration Itching & Insomnia Enoxaparin Sodium 40 mg 03/27/19 09:00 03/29/19 10:16 Lovenox SC Not Given 0900 KERRY Hydroxyzine HCl 25 mg 03/26/19 21:48 03/28/19 00:13 Atarax PO 25 mg Q6H PRN Administration Itching Hydroxyzine HCl 10 mg 03/27/19 09:00 03/29/19 14:20 Atarax PO 10 mg TID KERRY Administration Metronidazole 500 mg/ Device 100 mls @ 100 mls/hr 03/27/19 22:00 03/29/19 14: 21 IVPB 100 mls Q8HR KERRY Administration Levofloxacin 750 mg/ Device 150 mls @ 100 mls/hr 03/28/19 18:00 03/29/19 17: 06 IVPB 150 mls 1800 KERRY Administration Vancomycin HCl 1.5 gm/ Device 300 mls @ 200 mls/hr 03/29/19 16:00 03/29/19 15 :30 IVPB 300 mls 0800,1600,2359 KERRY Administration Metoprolol Succinate 50 mg 03/27/19 09:00 03/29/19 08:43 Toprol Xl PO 50 mg DAILY KERRY Administration Minocycline HCl 100 mg 03/19/19 21:00 03/29/19 14:15 Minocycline Hcl PO Not Given BID [facility] Morphine Sulfate 2 mg 03/26/19 21:52 03/27/19 12:20 Morphine SLOW IVP 2 mg DAILY PRN Administration Mild-Moderate Pain (1-5) Nystatin 0 gm 03/25/19 21:00 03/29/19 14:16 Mycostatin Powder TOP Not Given BID [facility] Pantoprazole Sodium 40 mg 03/27/19 09:00 03/29/19 14:16 Protonix PO Not Given DAILY [facility] Prednisone 60 mg 03/27/19 08:00 03/29/19 14:15 Prednisone PO Not Given [facility] Sertraline HCl 50 mg 03/27/19 21:00 03/28/19 21:03 Zoloft PO 50 mg HS [facility] Administration Triamcinolone Acetonide 0 gm 03/01/19 09:00 03/29/19 14:16 Kenalog 0.1% Ointment TOP Not Given BID [facility] Zinc Sulfate 220 mg 03/27/19 09:00 03/29/19 14:16 Zinc Sulfate PO Not Given DAILY [facility] - Exam General Appearance: NAD Eye: PERRL, anicteric sclera ENT: no oropharyngeal lesions, moist mucosa Neck: supple, symmetric, no lymphadenopathy Heart: no murmur, no gallops, no rubs Respiratory: CTAB, no wheezes, no rales, no ronchi Respiratory - other findings: Deminished breath sounds secondary to body habitus Gastrointestinal: soft, non-tender, non-distended, no palpable masses, no guarding, no rigidity Gastrointestinal - other findings: Obese Extremities: no clubbing, no edema Skin - other findings: Skin lesions present - see wound care pictures for details Neurological: cranial nerve grossly intact, no weakness Musculoskeletal: generalized weakness Psychiatric: normal affect, normal behavior Hosp A/P (1) Cholecystitis Code(s): K81.9 - CHOLECYSTITIS, UNSPECIFIED Status: Acute (2) Abdominal pain Code(s): R10.9 - UNSPECIFIED ABDOMINAL PAIN Status: Acute (3) Abnormal LFTs (liver function tests) Code(s): R94.5 - ABNORMAL RESULTS OF LIVER FUNCTION STUDIES Status: Acute (4) Anemia Code(s): D64.9 - ANEMIA, UNSPECIFIED Status: Acute (5) Cellulitis Code(s): L03.90 - CELLULITIS, UNSPECIFIED Status: Acute (6) Iron deficiency anemia Code(s): D50.9 - IRON DEFICIENCY ANEMIA, UNSPECIFIED Status: Acute (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 Status: Acute (8) Sepsis Code(s): A41.9 - SEPSIS, UNSPECIFIED ORGANISM Status: Acute (9) Transaminitis Code(s): R74.0 - NONSPEC ELEV OF LEVELS OF TRANSAMNS & LACTIC ACID DEHYDRGNSE Status: Acute (10) HTN (hypertension) Code(s): I10 - ESSENTIAL (PRIMARY) HYPERTENSION Status: Chronic (11) Morbid obesity Code(s): E66.01 - MORBID (SEVERE) OBESITY DUE TO EXCESS CALORIES Status: Chronic - Plan Plan: medical unit general surgery consultation, recommendations patient infectious disease consultation, recommendations appreciated status post cholecystectomy perioperative care animatics per infectious disease specialist may benefit from transfer to inpatient dermatology blood pressure control next one blood sugar control replace lecture light as needed G.I. prophylaxis DVT prophylaxis
[2019-03-29] MEDS: diphenhydrAMINE 12.5 MG/5 ML UDCUP PO SCH (20:54)
[2019-03-29 23:50] LABS: Vancomycin, Trough 14.1 ug/mL
[2019-03-30] MEDS: Vancomycin 1.5 GRAM/300 ML BAG 1.5 GM in Premix Bag 1 BAG IVPB SCH ×2 (00:19→09:06)
[2019-03-30] MEDS: HYDROcodone/Acetaminophen 7.5/325 mg Tablet PO PRN (01:55)
[2019-03-30] MEDS: diphenhydrAMINE 25 MG CAP PO PRN (04:11)
[2019-03-30] MEDS: metroNIDAZOLE 500 MG in Premix Bag 1 BAG IVPB SCH (05:30)
[2019-03-30 08:45] VITALS: BP 121/66; TEMP 98
[2019-03-30] MEDS: Amlodipine 10 MG TAB PO SCH (09:07)
[2019-03-30] MEDS: predniSONE 20 MG TAB PO SCH (09:07)
[2019-03-30] MEDS: Zinc Sulfate 220 MG CAP PO SCH (09:09)
[2019-03-30] MEDS: hydrOXYzine 10 MG TAB PO SCH (09:09)
[2019-03-30] MEDS: Enoxaparin Sodium 40 MG/0.4 ML SYRINGE SC SCH (09:11)
[2019-03-30] MEDS: Ascorbic Acid 500 mg Chewable Tablet PO SCH (09:16)
[2019-03-30] MEDS: Nystatin Powder 15 GM BOT TOP SCH (09:20)
--- NOTE | 2019-03-30 17:05 | PRG ---
DATE OF SERVICE: 03/30/2019 SUBJECTIVE: Ms. Mcqueen is doing well after laparoscopic cholecystectomy. She is tolerating a diet. Her abdominal pain and postprandial nausea are resolved. OBJECTIVE: VITAL SIGNS: Temperature 98 degrees, pulse 86, and blood pressure 121/66. LUNGS: Clear to auscultation. CARDIAC: Regular rate and rhythm without murmur or gallop. ABDOMEN: Soft and nontender. ASSESSMENT AND PLAN: Doing well after laparoscopic cholecystectomy. Diet and activity as tolerated. I will see as needed. Please call if necessary. The patient can follow up with me as needed. Job ID: [id number]
--- NOTE | 2019-03-30 19:19 | DIS ---
DATE OF ADMISSION: 02/28/2019 DATE OF DISCHARGE: 03/30/2019 REASON FOR HOSPITALIZATION: Skin wounds. SIGNIFICANT FINDINGS: The patient found to have worsening of her chronic skin condition and required adjustment of IV antibiotics by Infectious Disease specialist. The patient was also found to have cholecystitis and required her gallbladder removed. PROCEDURES PERFORMED AND TREATMENTS RENDERED: The patient underwent laparoscopic cholecystectomy on 03/29/2019-please see full operative report for details-the patient tolerated the procedure well without intraoperative complications. The patient was tolerating a diet postoperatively and recommended safe for discharge by General Surgery. The patient was on an extensive course of antibiotics by Infectious Disease specialist and after 4 weeks of antibiotics, she had completed all necessary IV antibiotics and she was recommended safe for transition to oral minocycline and prednisone therapy with followup with Dermatology in the outpatient clinic. The patient was recommended safe for discharge by all specialists on 03/30/2019. CONDITION ON DISCHARGE: Stable. SPECIFIC INSTRUCTIONS FOR THE PATIENT/FAMILY: 1. 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 2. The patient is recommended to take all other medications as directed, to be re-evaluated by primary care physician in the next 5 to 7 days. 3. The patient is recommended to follow up with Infectious Disease specialist in the next 1 to 2 weeks. 4. The patient is recommended to follow up with General Surgery in the next 1 to 2 weeks for wound check. 5. The patient is recommended to return to acute care hospital immediately if signs or symptoms return, worsen, or any other new symptoms occur. DISCHARGE MEDICATIONS: 1. Minocycline 100 mg one tablet p.o. b.i.d. 2. Prednisone 40 mg one tablet p.o. daily. 3. Zinc sulfate 220 mg one tablet p.o. daily. 4. Metoprolol succinate XL 50 mg one tablet p.o. daily. 5. Vitamin C 500 mg one tablet p.o. daily. 6. Amlodipine 10 mg one tablet p.o. daily. 7. Tylenol Extra Strength 1000 mg q.8 p.r.n. severe pain 6 to 10. 8. Hydroxyzine 25 mg one tablet p.o. 4 times per day p.r.n. anxiety. 9. Hydrocortisone 2.5% cream apply topically b.i.d. p.r.n. itching. 10. Nystatin 30 g tube, apply b.i.d. to affected area. 11. Sertraline 50 mg one tablet p.o. at bedtime. 12. Triamcinolone 0.1% ointment apply topically b.i.d. to affected area. Job ID: [id number]
[2019-03-31 18:08] LABS: CMV DNA-PCR Test Positive < 200 IU/mL (Negative)
== END 2019-03-30 15:48 | disposition home or self-care (01) | DRG 854 ==
LOC: ERS 17:13 → T4-B 19:51 → UNDODISIN 03-26 13:43
PROVIDERS: ADMIT Family Medicine; ATTEND Family Medicine
PROC: 02HV33Z Insertion of Infusion Device into Superior Vena Cava, Percutaneous Approach (ICD-10-PCS; 2019-03-01)
PROC: B548ZZA Ultrasonography of Superior Vena Cava, Guidance (ICD-10-PCS; 2019-03-01)
PROC: 0FT44ZZ Resection of Gallbladder, Percutaneous Endoscopic Approach (ICD-10-PCS; principal; 2019-03-29)
PROC: BF13YZZ Fluoroscopy of Gallbladder and Bile Ducts using Other Contrast (ICD-10-PCS; 2019-03-29)
DX: A41.02 Sepsis due to Methicillin resistant Staphylococcus aureus (principal); Z68.43 Body mass index [BMI] 50.0-59.9, adult; L03.90 Cellulitis, unspecified; L10.2 Pemphigus foliaceous; K80.00 Calculus of gallbladder with acute cholecystitis without obstruction; I10 Essential (primary) hypertension; F32.9 Major depressive disorder, single episode, unspecified; E66.01 Morbid (severe) obesity due to excess calories; T38.0X5A Adverse effect of glucocorticoids and synthetic analogues, initial encounter; D50.9 Iron deficiency anemia, unspecified; N20.0 Calculus of kidney; R51 Headache; R94.5 Abnormal results of liver function studies; R74.0 Nonspecific elevation of levels of transaminase and lactic acid dehydrogenase [LDH]; Z98.51 Tubal ligation status; Z90.49 Acquired absence of other specified parts of digestive tract; Z88.8 Allergy status to other drugs, medicaments and biological substances; Z79.899 Other long term (current) drug therapy
CPT/HCPCS: 36415; 36416; 36569; 47532; 71045; 74176; 76705; 80048; 80053; 80069; 80202; 81001; 82728; 83540; 83550; 83605; 85025; 85027; 85060; 85652; 86140; 87040; 87497; 87631; 88304; 93306; 96365; 96375; C1751; J0360; J1200; J1610; J1642; J1644; J1650; J1885; J1956; J2001; J2185; J2250; J2270; J2405; J2704; J2997; J3010; J3370; J3490; J7050; J7512; Q0163; S0020

== ENCOUNTER 2019-04-05 20:05 | Inpatient (IN) | payer MEDICAID ==
[2019-04-05 22:08] VITALS: BMI 53.4
[2019-04-05 22:44] LABS: Lactic Acid 2.4 mmol/L (0.5-2.2)
[2019-04-06] MEDS ORDERED: Morphine 2 MG/ML SYRINGE SLOW IVP PRN (00:44)
[2019-04-06] MEDS: Piperacillin/Tazobactam 3.375 GM in Sodium Chloride 0.9% 100 ML IVPB SCH ×2 (01:22→11:33)
[2019-04-06] MEDS: Ondansetron PF 4 MG/2 ML Vial IVP PRN ×3 (01:22→19:36)
[2019-04-06] MEDS: Sodium Chloride 0.9% 1,000 ML IV SCH ×3 (02:46→18:41)
--- NOTE | 2019-04-06 07:33 | HP ---
PRIMARY CARE PHYSICIAN: Unknown. CHIEF COMPLAINT: Fevers, nausea, vomiting x2 days. HISTORY OF PRESENT ILLNESS: This is a 38-year-old morbidly obese, female with past medical history of pemphigus vulgaris, on chronic prednisone therapy 40 mg once daily; hypertension; recent laparoscopic cholecystectomy on 03/29/2019, uncomplicated, and recurrent bacteremia most recently noted on 02/28/2019, blood cultures positive for MRSA, enterococcus faecalis, and corynebacterium species, who presented to tertiary ER for fevers, complaints associated with 2 days of generalized abdominal pain with nausea and vomiting, diarrhea, anorexia, increased skin discoloration and dysgeusia, prompting further evaluation. There, workup revealed lactic acidosis of 4.6, white blood cell count of 14, notably on chronic steroids, pulse of 126 and urinalysis suggestive of UTI in the absence of any patient's urinary complaints. Chest x-ray was negative. The patient received 2 L IV fluid bolus, IV Zosyn 3.375 g after blood cultures were obtained and transferred to [facility] inpatient for further evaluation. Chemistries also noted hyponatremia of 131 with unremarkable liver enzymes. At bedside, most recent repeat lactic acid level is downtrending at 2.4. The patient is groaning and states she does not feel well. She continues to complain of generalized pain, nausea, dysgeusia, and energy. She is hard of hearing and notes she is not her baseline. PAST MEDICAL HISTORY: Morbid obesity; pemphigus vulgaris, on chronic prednisone 40 mg daily; recent hospitalization requiring laparoscopic cholecystectomy on 03/29/2019, as well as notable recurrent bacteremia with blood cultures on 02/28/2019, positive for MRSA, Enterococcus faecalis and presumptive corynebacterium species. Hypertension. PAST SURGICAL HISTORY: Recent laparoscopic cholecystectomy on 03/29/2019, appendectomy, tubal ligation . SOCIAL HISTORY: The patient lives at home with her mother. She denies any illicit habits. She is ambulatory and functional at baseline without assistive devices. ALLERGIES: LISTED TO VALIUM, CEFTAZIDIME, SILVADENE. REVIEW OF SYSTEMS: Pertinent positives as per HPI. Remainder of review of systems negative. HOME MEDICATIONS: Reviewed as per admission medication reconciliation. FAMILY HISTORY: The patient denies any chronic medical comorbidities in family members. PHYSICAL EXAMINATION: VITAL SIGNS: T-max, afebrile 98.4; pulse initially 126, currently 106, sinus tachycardia; blood pressure 120/62, oxygen saturation 99% on room air, respirations 18. GENERAL APPEARANCE: This is a young obese female, malaise in appearance, who is hard of hearing and appears uncomfortable. HEENT: Normocephalic, atraumatic. No facial asymmetry. Pupils equally round. Extraocular muscles intact. NECK: Supple. CARDIOVASCULAR: S1 and S2 tachycardic. No harsh murmurs or chest wall tenderness to palpation. Limited evaluation due to the patient's body habitus. LUNGS: Nonlabored respiration on bilateral posterior auscultation. Symmetrical chest expansion without obvious wheezing or rales. ABDOMEN: Soft. Nonspecific tenderness throughout the abdomen to mild palpation. Limited visualization of laparoscopic incisional sites, but there is noted purulent drainage from umbilical trocar site with moderate palpation of the abdomen. Bowel sounds noted. EXTREMITIES: No obvious edema or cyanosis or deformities noted. SKIN: There are extensive skin changes noted throughout the entirety of the body with diffuse erythema, warmth, tenderness, and throughout the entirety of the body. No obvious purulent drainage noted elsewhere in peripheral extremities or back or face. ASSESSMENT AND PLAN: 1. Severe sepsis of unspecified etiology. 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 Also consider deep-seated infections. Furthermore, postoperative intraabdominal infection cannot be excluded. We will admit the patient as inpatient status and place on telemetry monitoring. Infectious Disease consultation will be requested. We will maintain the patient on IV Zyvox noting morbid obesity and difficulty obtaining therapeutic adequate levels with vancomycin as well as IV Zosyn for intraabdominal coverage. We will follow blood cultures to evaluate for her recurrent bacteremia and likely need for consideration of any other deep-seated infections. We will trend CBC, BMP, lactic acid levels and vital signs. The patient is chronically immunosuppressed due to known history of pemphigus vulgaris and use of chronic prednisone. Noted purulent expressed drainage from umbilical trocar site and we will obtain CT of the abdomen and pelvis with IV contrast for further delineation. No evidence of elevated liver enzymes noted, but a bile leak must also be considered. 2. History of recent laparoscopic cholecystectomy on 03/29/2019. 3. History of recurrent bacteremia most recently, methicillin-resistant Staphylococcus aureus, Enterococcus faecalis, and Corynebacterium species on 02/28/2019. 4. Morbid obesity. 5. Pemphigus vulgaris, on chronic prednisone therapy. We will continue 40 mg daily prednisone along with GI prophylaxis. 6. Hyponatremia. The patient received IV fluid resuscitation in the ER and we will monitor repeat chemistries. 7. Deep vein thrombosis prophylaxis: Ideally, Lovenox injection should be started; however, unclear if any safe areas of administration are present. 8. Check a.m. labs on 04/06/2019. Guarded prognosis. CODE STATUS: Full code. DISPOSITION: The patient will be admitted to inpatient status and placed on telemetry monitoring. Job ID: [id number]
[2019-04-06] MEDS ORDERED: Linezolid 600 MG in Premix Bag 1 BAG IVPB SCH ×2 (09:00→12:00)
[2019-04-06] MEDS ORDERED: FLU VACC QS2019-20(6MOS UP)/PF 60 MCG/0.5 ML SYRINGE IM ONE (09:00)
[2019-04-06 10:53] LABS: BHCG - Serum Negative (NEGATIVE); Hemoglobin 9.1 g/dL (12.0-16.0); Mean Corpuscular Hemoglobin 26.1 pg (27.0-31.0); Mean Corpuscular Volume 81.5 fL (78.0-98.0); Mean Platelet Volume 9.7 fL (7.4-10.4); Platelet Count 203 thou/uL (130-400); Pregs Control Background? CLEAR/WHITE (CLR/WHITE); Pregs Control Bar Appear? YES (CONTROL BAR); RBC Distribution Width 14.7 % (11.5-14.5); Red Blood Cell (RBC) Count 3.47 mill/uL (4.20-5.40); White Blood Cell (WBC) Count 9.1 thou/uL (4.8-10.8)
[2019-04-06 11:15] LABS: Lactic Acid 1.8 mmol/L (0.5-2.2)
[2019-04-06 11:20] LABS: Anion Gap 13 mmol/L (10-20); BUN (Urea Nitrogen) 17 mg/dL (7.0-18.7); Calc. Creatinine Clearance 216 mL/min (70-130); Calcium 6.9 mg/dL (7.8-10.44); Carbon Dioxide 22 mmol/L (22-29); Chloride 102 mmol/L (98-107); Estimated GFR-MDRD 77; Glucose 87 mg/dL (70-105); Potassium 3.3 mmol/L (3.5-5.1); Sodium 134 mmol/L (136-145)
[2019-04-06 11:30] LABS: Band 23 % (5-11); Lymphocytes 34 % (21-51); MDiff Complete? YES; Metamyelocyte 2 % (0-0); Monocytes 6 % (0-10); Neutrophil 32 % (42-75); Platelet Morphology Comment Appears Adequate; Polychromasia SLIGHT = 2-3 cells (100X) (0-2/hpf); Reactive Lymphocytes 3 % (0-10)
--- NOTE | 2019-04-06 12:24 | CT ---
CT OF THE ABDOMEN AND PELVIS WITH IV CONTRAST INDICATION: Diarrhea, sepsis and abdominal pain COMPARISON: CT abdomen and pelvis without contrast dated March 24, 2019 FINDINGS: ABDOMEN: Lung bases: Clear Liver: Mild fatty liver Gallbladder: Surgically absent Pancreas: Normal. Adrenal glands: Normal. Spleen: Stable splenomegaly of 13.9 cm Kidneys and ureters: Stable left nephrolithiasis with a 1.3 cm stone involving inferior pole of the l eft kidney. Additional 7 mm stone is seen within the inferior pole of the left kidney. Vasculature: Normal. Lymph nodes:Few shotty appearing lymph nodes are seen within the retroperitoneum. No pathologically e nlarged lymph nodes are evident. Free fluid in abdomen:No free fluid is evident. PELVIS: Small and large bowel: Normal Appendix:Normal Bladder: Small amount of gas is seen within the anterior aspect of the bladder which may reflect rece nt instrumentation. Rectal and perirectal soft tissues:Normal. Reproductive structures: Bilateral tubal ligation clips. Free fluid in pelvis: No free fluid is evident. Lymphadenopathy pelvis: There are mildly prominent inguinal lymph nodes bilaterally 1 large seen measuring 1.7 cm on image 93 of series 2. Osseous structures: No acute osseous abnormality. No destructive osteolytic or osteoblastic lesion i s identified. There is scattered degenerative and osteoarthritic changes. Soft tissues:There is reticulation and soft tissue thickening involving the lower anterior abdominal wall suspicious for panniculitis. No drainable fluid collection is evident. IMPRESSION: 1. Lower anterior abdominal wall panniculitis without drainable fluid collection. 2. Stable left nephrolithiasis. 3. Fatty liver. 4. Stable splenomegaly. 5. Tubal ligation clips. 6. Small amount of gas seen within the bladder may reflect recent instrumentation such as [address] jacek ter placement. Recommend correlation. UTIs not excluded.
[2019-04-06] MEDS ORDERED: Iopamidol 370 76% 100 ML VIAL ONE (13:33)
[2019-04-06] MEDS ORDERED: Piperacillin/Tazobactam 3.375 GM in Sodium Chloride 0.9% 100 ML IVPB SCH (14:00)
[2019-04-06] MEDS: predniSONE 20 MG TAB PO SCH (14:14)
[2019-04-06] MEDS: Amlodipine 10 MG TAB PO SCH (14:14)
--- NOTE | 2019-04-06 15:37 | PDOC.EVN ---
Event Note - Event Note Event Note: The patient is reporting yellow diarrhea since her cholecystectomy, abdominal pain and nausea. She has pemphigus vulgaris and skin is baseline excoriated and dry. She denies itching, fevers, chills. She states she feels like crap overall. No chest pain, cough or shortness of breath. Vitals: stable General: morbidly obese Skin: patient with generalized skin peeling on face, arms, chest, extremities secondary to pemphigus vulgaris CVS: RRR, no murmurs, rubs, gallops Lungs: CTAB Abdomen: +BS, soft, mild RLQ tenderness, mild distension Extremities: no edema Blood cultures : no growth CT abdomen: lower anterior abdominal wall panniculitis, left nephrolithiasis, fatty liver, splenomegaly This is 38 ear old female presenting with hypotension, weakness, diarrhea, s/p recent cholecystectomy Sepsis from panniculitis Diarrhea - likely from cholecystectomy - had hypotension, lactic acidosis - continue linezolid and zosyn. Blood cultures negative. CT abdomen showing panniculitis. ID consult pending and surgery consult pending - check UA - check stool culturess and C diff but diarrhea likely from cholecystectomyh Lactic acidosis - resolved Hypokalemia - potassium 3.3, replace with 40 meq potassium Hypocalcemia - calcium 6.9, will give 1 gram calcium Anemia - hemoglobin 9, check B12, folate
[2019-04-06] MEDS ORDERED: Potassium Chloride 20 MEQ TAB PO SCH (15:45)
[2019-04-06] MEDS ORDERED: Calcium Chloride 1 GM/10 ML Abboject SYRINGE IVP SCH (15:45)
[2019-04-06] MEDS ORDERED: Calcium Chloride 1 GM in Sodium Chloride 0.9% 100 ML IVP SCH (18:30)
[2019-04-06] MEDS: Vancomycin HCl 25 MG/ML Oral PO SCH ×2 (18:38→23:12)
--- NOTE | 2019-04-06 19:29 | CON ---
DATE OF CONSULTATION: 04/06/2019 REASON FOR CONSULTATION: Sepsis, diarrhea. HISTORY OF PRESENT ILLNESS: A 38-year-old, whom I had seen last month when she was admitted with a history of pemphigus foliaceus, which was diagnosed at [facility] in August through a skin biopsy. She has been managed with corticosteroids, previously on 60 mg of prednisone daily, but due to lack of improvement, she was switched to Rituxan infusions and had received 1 dose before this last admission at the beginning of February. She lives in [place] with family members and has a quite severe functional impairment due to the skin eruption. She has a constant burning sensation as if she has had a constant sunburn, difficulty sleeping at night, and cannot go outside due to the risk of sun exposure. In the beginning of February, she developed fever, worsening generalized pain, and headaches. Our impression was persistent methicillin-resistant Staphylococcus aureus bacteremia since November. We recommended to continue 4 weeks of IV vancomycin and discontinue meropenem and clindamycin. She had a PICC line inserted, and she was treated in the hospital setting pretty much for the whole course of therapy. PICC line was removed. She had improved upon discharge, and I had added minocycline to her regimen. The skin lesions had improved at the time of discharge. She did have a transient temperature elevation and leukemoid reaction. Blood cultures were repeated, but they remained negative. The patient was discharged on minocycline , prednisone 40 mg daily, zinc, metoprolol, Norvasc, hydroxyzine, hydrocortisone cream, nystatin, Zoloft, and triamcinolone b.i.d. This was about a week ago, and now, she was re-admitted after brought to the emergency room yesterday because of body aches and fever. She also had quite intense liquid stool. In her own words, everything that she ate would come down and come out of her in her bowel movements which were liquid. She also had vomiting intermittently and abdominal cramps. The initial findings included BP 140/71, pulse 118, respirations 22, temperature 102.3, and she had diffuse skin findings as noted previously. The abdomen described with right upper quadrant tenderness, which was described as mild without guarding. Lungs sounds were clear. Other findings with sodium 134, creatinine 0.82, lactic acid 2.4, calcium 6.9. White cell count is 9.1, hemoglobin 9.1, platelets 203 with 32% neutrophils and 23% bands. Currently, Ms. Mcqueen is lying in bed, and she is having abdominal cramps and still having diarrhea pretty much constantly. No headaches. No visual symptoms, sore throat, odynophagia, or dysphagia. Did not vomit after admission. No respiratory symptoms. No cough. No dyspnea. No genitourinary symptoms. PAST MEDICAL HISTORY: Hypertension, obesity, nephrolithiasis, pemphigus foliaceus, and MRSA bacteremia treated for 4 weeks recently here in the hospital. SOCIAL HISTORY: Never smoker. Lives in [place] with family. Disabled. ALLERGIES: 1. CEFTAZIDIME. 2. SILVADENE. FAMILY HISTORY: Noncontributory. CURRENT MEDICATIONS: 1. Norvasc. 2. Linezolid. 3. Toprol. 4. Morphine. 5. Zofran. 6. Zosyn. 7. Prednisone. 8. Zoloft. PHYSICAL EXAMINATION: VITAL SIGNS: T-max 99.8, blood pressure 106/57, pulse 116, respirations 18, O2 saturation 100%. SKIN: The patient has diffuse skin erythema as noted before. There are a few areas of scabbing and blistering. This involves her entire body skin as noted recently. No lymphadenopathy. The patient has a peripheral IV access and is voiding in the toilet. HEENT: Ocular movements are conjugate. Sclerae are white. Pupils are equal. Oral cavity with no lesions. She has some blistering around the right side of her mouth. NECK: No jugular vein distention. LUNGS: Symmetric, clear breath sounds. HEART: S1 and S2. Regular rate. No S3 or S4. ABDOMEN: Diffusely tender, moderately so. Bowel sounds are increased. MUSCULOSKELETAL: No joint inflammatory activity noted. She is able to move all extremities. NEUROLOGIC: Cognitive function is unchanged. LABORATORY DATA: The labs have been discussed. Two sets of blood cultures thus far no growth. Influenza testing negative. IMAGING STUDIES: Include an abdomen and pelvis CT; stable nephrolithiasis, 1.3 cm in the inferior pole of left kidney, but no hydronephrosis. A few small lymph nodes within the retroperitoneum. Free fluid in the abdomen is evident, and the bowel was felt to be normal. Small amount of gas in the anterior aspect of the bladder. ASSESSMENT: 1. Pemphigus foliaceus, on prednisone. 2. Recent lengthy hospital stay for treatment of methicillin-resistant Staphylococcus aureus bacteremia through a PICC line, which was removed upon discharge. 3. Readmission with unremitting diarrhea, vomiting, and abdominal cramps with a left shift in the WBC count. DISCUSSION: Differential diagnosis includes C. difficile colitis as the more likely scenario here vs Minocycline adverse reaction. An inflammatory process in the abdominal area has been otherwise ruled out by the CT scan. Recurrence of bacteremia is also possible. I would go ahead and discontinue the broad-spectrum coverage and switch her to oral vancomycin. May have to add IV Flagyl as well and check stool for C. difficile. Non-C. difficile causes of diarrhea including other enteric pathogens to be considered and stool testing submitted for such. Inflammatory bowel disease is less likely. Ischemic bowel disease is also felt to be less likely. Job ID: [id number] [id number]
[2019-04-06] MEDS: Acetaminophen 325 MG TAB PO PRN (19:36)
[2019-04-06] MEDS: metroNIDAZOLE 500 MG in Premix Bag 1 BAG IVPB SCH (21:08)
[2019-04-06] MEDS: Famotidine 20 MG TAB PO PRN (21:08)
[2019-04-07] MEDS: Sodium Chloride 0.9% 1,000 ML IV SCH ×2 (05:11→18:37)
[2019-04-07] MEDS: Vancomycin HCl 25 MG/ML Oral PO SCH (05:11)
[2019-04-07] MEDS: metroNIDAZOLE 500 MG in Premix Bag 1 BAG IVPB SCH (05:11)
[2019-04-07 07:12] LABS: Bilirubin Negative (Negative); Blood, Urine Trace (Negative); Clarity Turbid (Clear); Glucose, Urine (Dipstick) Normal (Negative); Leukocyte 250 Leu/uL (Negative); Nitrite Negative (Negative); Protein, Urine (Dipstick) 50 mg/dL (Neg-Trace); Transitional Epithelial 0-3 HPF (None Seen); Urobilinogen Normal mg/dL (Less than 2)
[2019-04-07 07:37] LABS: Bacteria/HPF 2+ HPF (None Seen)
[2019-04-07 07:39] LABS: Urine Culture Reflex No No
[2019-04-07] MEDS: predniSONE 20 MG TAB PO SCH (08:36)
[2019-04-07 10:06] LABS: Hemoglobin 8.5 g/dL (12.0-16.0); Mean Corpuscular HGB CONC 32.2 g/dL (32.0-36.0); Mean Corpuscular Hemoglobin 26.6 pg (27.0-31.0); Mean Corpuscular Volume 82.7 fL (78.0-98.0); Mean Platelet Volume 9.8 fL (7.4-10.4); Platelet Count 178 thou/uL (130-400); RBC Distribution Width 14.9 % (11.5-14.5); Red Blood Cell (RBC) Count 3.19 mill/uL (4.20-5.40); White Blood Cell (WBC) Count 6.2 thou/uL (4.8-10.8)
[2019-04-07 10:26] LABS: Anion Gap 10 mmol/L (10-20); BUN (Urea Nitrogen) 13 mg/dL (7.0-18.7); Calc. Creatinine Clearance 273 mL/min (70-130); Calcium 6.9 mg/dL (7.8-10.44); Carbon Dioxide 24 mmol/L (22-29); Chloride 103 mmol/L (98-107); Estimated GFR-MDRD Greater than 90; Glucose 83 mg/dL (70-105); Potassium 3.4 mmol/L (3.5-5.1); Sodium 134 mmol/L (136-145)
[2019-04-07] MEDS ORDERED: Potassium Chloride 20 MEQ TAB PO SCH (10:30)
[2019-04-07] MEDS: Amlodipine 10 MG TAB PO SCH (10:40)
--- NOTE | 2019-04-07 11:55 | PQF ---
KELSIE Tyson, [facility] [id number] [facility]-291 [id number] CLINICAL DOCUMENTATION IMPROVEMENT CLARIFICATION FORM: ICD-10 Updated PLEASE DO AN ADDENDUM TO THE PROGRESS NOTE WITH ANY DOCUMENTATION UPDATES OR ADDITIONS AND CARRY THROUGH TO DC SUMMARY. THANK YOU. DATE: 04/17/2019 ATTN: DR. Zhane BHAKTA Please exercise your independent, professional judgment in responding to the clarification form. Clinical indicators are provided on the bottom of this form for your review. Please check appropriate box(s): [ ] UTI please specify if due to or related to (as applicable): UTI Site: [ ] Kidney [ ] Ureter [ ] Bladder [ ] Urethra [ ] Unable to determine Specify Organism (if known): [ ] Unknown organism [ ] Contaminated urine specimen without UTI [ X ] Other diagnosis Unable to determine UTI without urine culture___ [ ] Unable to determine In addition, please specify: Present on Admission (POA): [ ] Yes [ ] No [X ] Unable to determine For continuity of documentation, please document condition throughout progress notes and discharge summary. Thank You. CLINICAL INDICATORS - SIGNS / SYMPTOMS / LABS / RESULTS AND LOCATION IN MR 04/06 H&P (VALENZUELA) PT PRESENTED TO A TERTIARY ER FOR FEVERS, COMPLAINTS ASSOCIATED WITH 2 DAYS OF GENERALIZED ABDOMINAL PAIN WITH NAUSEA AND VOMITING, DIARRHEA, ANOREXIA, INCREASED SKIN DISCOLORATION AND DYSGEUSIA PROMPTING FURTHER EVALUATION. THERE A URINALYSIS WAS SUGGESTIVE OF UTI IN THE ABSENCE OF ANY PATENT'S URINARY COMPLAINTS. 04/06 BANDS 23 04/06 TEMP 99.8 > 101.2 04/07 URINALYSIS - BACTERIA 2+ - WBC 11-20 - RBC 11-20 - BLOOD (TRACE) - PROTEIN 50 - SPECIFIC GRAVITY 1.038 - CLARITY TURBID RISK: DX SEVERE SEPSIS, HX MRSA, RECURRENT BACTEREMIA (H&P/ VALENZUELA) 04/06 TREATMENTS: URINE CULTURE ( 04/07) ID CONSULT (EMERITA/04/06) THANK YOU! BLANCA (This form is maintained as a part of the permanent medical record) 2014 [email or web address], [employer]. All Rights Reserved JUDI [email or web address] [phone] [facility] HOSPITALD[facility]
--- NOTE | 2019-04-07 12:15 | PRG ---
DATE OF SERVICE: 04/07/2019 SUBJECTIVE: Feeling better today, more communicative. She is awake, alert. She is going to try to eat some today. The abdominal pain is less. Has not had much stooling and no respiratory symptoms. No cough. Voiding without difficulty. Issues with blood draws. OBJECTIVE: VITAL SIGNS: She had a T-max of 101.2 yesterday at 7 p.m. and she has been afebrile since. BP 105/53, pulse 95, respirations 18, O2 saturation 98. 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 HEENT: Ocular movements are conjugate. LUNGS: Symmetric, clear breath sounds. HEART: S1 and S2 without murmurs. ABDOMEN: Has quite protuberant panniculus, but no tenderness. Bowel sounds are present, but not increased. NEUROLOGIC: Able to move extremities on command. LABORATORY DATA: Sodium 134, creatinine 0.65. White cell count 6.2, hemoglobin 8.5, platelets 178. Blood cultures with 2 sets with likely coagulase negative Staph. I believe this is a contaminant and I would not recommend treating this finding. The C diff was negative and the other stool workup was negative as well. ASSESSMENT AND DISCUSSION: Pemphigus foliaceus, on prednisone. Recent lengthy hospital stay for treatment of methicillin-resistant Staphylococcus aureus bacteremia and readmission with unremitting diarrhea, vomiting, abdominal cramps, which has improved now after minocycline was discontinued. I believe we should continue to withhold antimicrobial therapy and the coagulase-negative Staph isolate is likely a contaminant and should not be treated. It is possible that minocycline is what caused the readmission with symptoms of gastroenteritis, which is typical adverse reactions to minocycline. Again, the main limiting factor here is her uncontrolled skin disorder and lack of insurance, inability to get proper Dermatology input for management of her autoimmune skin disorder. Job ID: [id number]
[2019-04-07 12:29] LABS: ALT (SGPT) 22 U/L (8-55); AST (SGOT) 27 U/L (5-34); Albumin 2.5 g/dL (3.5-5.0); Alkaline Phosphatase 66 U/L (40-110); Bilirubin, Direct 0.3 mg/dL (0.1-0.3); Bilirubin, Total 0.7 mg/dL (0.2-1.2); Iron 44 ug/dL (50-170); Iron Binding Capacity, Total 145 mcg/dL (265-497); Protein, Total 4.2 g/dL (6.0-8.3)
[2019-04-07 12:40] LABS: Ferritin 620.95 ng/mL (10-291); Free T4 (Free Thyroxine) 0.56 ng/dL (0.70-1.48); Thyroid Stimulating Hormone 1.2274 uIU/mL (0.35-4.94)
--- NOTE | 2019-04-07 13:09 | PDOC.HOSPP ---
- Subjective Encounter Date: 04/07/19 Encounter Time: 10:00 Subjective: The patient is doing better. Diarrhea has resolved. She still has some mild abdominal pain. The patient wants to eat a regular diet. No chest pain, shortness of breath or cough. She complains that her hands have a rash on it, but denies itching. She also is requesting a PICC line, explained that she doesn't need IV antibiotics, so could try a midline. Blood cultures growing contaminant. Per case management, patient has an APS consult in place. She is unable to take care of herself at home - Objective Vital Signs & Weight: Vital Signs (12 hours) Temp Pulse Resp BP Pulse Ox 04/07/19 11:15 98.1 F 95 13 105/53 L 98 04/07/19 08:33 97.9 F 97 18 110/54 L 100 04/07/19 04:28 98.6 F 85 14 134/63 98 Weight Admit Weight 331 lb 4.8 oz Weight 331 lb 4.8 oz I&O: 04/06/19 04/07/19 04/08/19 06:59 06:59 06:59 Intake Total 1100 1700 Output Total 500 1000 400 Balance 600 700 -400 Result Diagrams: 04/07/19 09:33 04/07/19 09:34 Hospitalist ROS - Review of Systems Constitutional: denies: fever, chills - Medication Medications: Active Medications Generic Name Dose Route Start Last Admin Trade Name Freq PRN Reason Stop Dose Admin Acetaminophen 650 mg 04/06/19 00:40 04/06/19 19:36 Tylenol PO 650 mg Q4H PRN Administration Headache/Fever/Mild Pain (1-3) Famotidine 20 mg 04/06/19 20:56 04/06/19 21:08 Pepcid PO 20 mg BID PRN Administration Indigestion Sodium Chloride 1,000 mls @ 100 mls/hr 04/06/19 02:00 04/07/19 05:11 Normal Saline 0.9% IV 1,000 mls .Q10H KERRY Administration Metoprolol Succinate 50 mg 04/06/19 09:00 04/07/19 08:36 Toprol Xl PO 50 mg DAILY KERRY Administration Ondansetron HCl 4 mg 04/06/19 00:40 04/06/19 19:36 Zofran IVP 4 mg Q6H PRN Administration Nausea/Vomiting Prednisone 40 mg 04/06/19 08:00 04/07/19 08:36 Prednisone PO 40 mg QAM-WM KERRY Administration Sertraline HCl 50 mg 04/06/19 21:00 04/06/19 21:08 Zoloft PO 50 mg HS KERRY Administration - Exam General Appearance: NAD, awake alert General - other findings: Orbidly obese ENT: normocephalic atraumatic, no oropharyngeal lesions ENT - other findings: dry lips from pemphigus Neck: supple, symmetric, no JVD Heart: RRR, no murmur, no gallops, no rubs Respiratory: CTAB, no wheezes, no rales, no ronchi Gastrointestinal: soft, non-distended Gastrointestinal - other findings: RLQ tenderness Extremities: no cyanosis, no clubbing, 1+ LE edema Skin - other findings: diffuse exfoliative dermatitis from pemphigus Neurological: no focal deficits, no new deficit Hosp A/P - Plan This is a 38 year old female who presented with abdominal pain, nausea, vomiting diarrhea. Was found to be hypotensive with lactic acidosis #Gastroenteritis #Diarrhea - resolved - still has some mild RLQ pain. Diarrhea has resolved. Surgery was consulted on admission due to recent cholecystectomy - stool cultures, campylobacter, C diff are all negative. D/c vancomcyin and IV flagyl - #Possible sepsis from gastroenteritis - blood cultures showing 2/2 coag negative staph. Discontinued all antibiotics. Spiked one fever to 101 overnight, UA showed turbid urine, 11-20 WBC. Urine culture pending - s/p IV fluids Hypotension/lactic acidosis - will d/c amlodipine Hypokalemia - potassium 3.4, replaced with potassium Hypocalcemia - corrected for albumin, calcium is actually 7.7, will monitor Atrial fibrillation/flutter - noted on telemetry - continue metoprolol 50 mg daily Pemphigus folaceous - was following at [facility], needs dermatology consult and evaluation - continue outpatient prednisone dose Hyponatremia - stable Anemia of chronic disease - Hb 8.5. Iron panel consistent with anemia of chronic disease - B12 borderline low, folate normal Physical deconditioning - PT evaluation Disposition: f/u urin culture. APS consult pending, will likely need SNF since patient is unable to care for herself Code status: full code
[2019-04-07 13:14] LABS: Iron 40 ug/dL (50-170); Iron Binding Capacity, Total 141 mcg/dL (265-497)
[2019-04-07] MEDS: Ondansetron PF 4 MG/2 ML Vial IVP PRN (18:37)
--- NOTE | 2019-04-07 18:57 | PRG ---
DATE OF SERVICE: 04/07/2019 SUBJECTIVE: Ms. Mcqueen is a 38-year-old female with pemphigus foliaceus, had laparoscopic cholecystectomy on 03/29/2019. Pathology revealing acute chronic cholecystitis and cholelithiasis. She was readmitted for multiple complaints. On readmission, her liver function tests were normal. Abdominal CAT scan unremarkable for any postoperative complications. Her hemoglobin remained stable relative to discharge. She complained of some pain initially, but now states she is pain free. There was some concern about drainage about her umbilicus. Her trocar sites are well healed. There is some crusty drainage from the umbilicus, but nothing looks infected or of importance. ASSESSMENT AND PLAN: Doing well post cholecystectomy. No immediate indication of postoperative problems. Radiologically, CAT scan imaging. Liver function tests are normal and physical exam is normal at this time. I will see her as needed. Please call if necessary. Job ID: [id number]
[2019-04-08 04:58] LABS: Hemoglobin 8.6 g/dL (12.0-16.0); Mean Corpuscular HGB CONC 31.5 g/dL (32.0-36.0); Mean Corpuscular Hemoglobin 26.5 pg (27.0-31.0); Mean Corpuscular Volume 84.1 fL (78.0-98.0); Mean Platelet Volume 9.2 fL (7.4-10.4); Platelet Count 206 thou/uL (130-400); RBC Distribution Width 14.7 % (11.5-14.5); Red Blood Cell (RBC) Count 3.25 mill/uL (4.20-5.40); White Blood Cell (WBC) Count 7.4 thou/uL (4.8-10.8)
[2019-04-08] MEDS ORDERED: diphenhydrAMINE 50 MG/ML VIAL IVP SCH (05:00)
[2019-04-08 05:11] LABS: Anion Gap 11 mmol/L (10-20); BUN (Urea Nitrogen) 12 mg/dL (7.0-18.7); Calc. Creatinine Clearance 282 mL/min (70-130); Calcium 7.2 mg/dL (7.8-10.44); Carbon Dioxide 23 mmol/L (22-29); Chloride 106 mmol/L (98-107); Estimated GFR-MDRD Greater than 90; Glucose 89 mg/dL (70-105); Potassium 3.4 mmol/L (3.5-5.1); Sodium 137 mmol/L (136-145)
[2019-04-08] MEDS: Famotidine 20 MG TAB PO PRN (05:14)
[2019-04-08] MEDS: Sodium Chloride 0.9% 1,000 ML IV SCH ×2 (05:14→15:23)
[2019-04-08] MEDS: predniSONE 20 MG TAB PO SCH (08:51)
--- NOTE | 2019-04-08 14:47 | PDOC.HOSPP ---
- Subjective Encounter Date: 04/08/19 Encounter Time: 14:46 Subjective: Had diarrhea all night. Some today. Nurse reports three episodes so far on her shift. She does have diffuse pruritus. Had an episode of CP last night that she describes as heartburn. Poor appetite. Food tastes salty. Using Ensure and likes that. - Objective Vital Signs & Weight: Vital Signs (12 hours) Temp Pulse Resp BP BP Pulse Ox 04/08/19 12:00 97.7 F 84 18 125/58 L 100 04/08/19 08:00 95 04/08/19 07:59 97.9 F 90 18 136/66 95 04/08/19 03:49 97.9 F 93 23 H 126/58 L 94 L Weight Admit Weight 331 lb 4.8 oz Weight 331 lb 4.8 oz I&O: 04/07/19 04/08/19 04/09/19 06:59 06:59 06:59 Intake Total 1700 3640 Output Total 1000 400 Balance 700 3240 Result Diagrams: 04/08/19 04:30 04/08/19 04:30 Hospitalist ROS - Medication Medications: Active Medications Generic Name Dose Route Start Last Admin Trade Name Freq PRN Reason Stop Dose Admin Acetaminophen 650 mg 04/06/19 00:40 04/06/19 19:36 Tylenol PO 650 mg Q4H PRN Administration Headache/Fever/Mild Pain (1-3) Famotidine 20 mg 04/06/19 20:56 04/08/19 05:14 Pepcid PO 20 mg BID PRN Administration Indigestion Sodium Chloride 1,000 mls @ 100 mls/hr 04/06/19 02:00 04/08/19 05:14 Normal Saline 0.9% IV 1,000 mls .Q10H KERRY Administration Metoprolol Succinate 50 mg 04/06/19 09:00 04/08/19 08:51 Toprol Xl PO 50 mg DAILY KERRY Administration Ondansetron HCl 4 mg 04/06/19 00:40 04/07/19 18:37 Zofran IVP 4 mg Q6H PRN Administration Nausea/Vomiting Prednisone 40 mg 04/06/19 08:00 04/08/19 08:51 Prednisone PO 40 mg QAM-WM KERRY Administration Sertraline HCl 50 mg 04/06/19 21:00 04/07/19 22:42 Zoloft PO 50 mg HS KERRY Administration - Exam General Appearance: NAD, awake alert General - other findings: Morbidly obese. Heart: RRR, no murmur, no gallops, no rubs, normal peripheral pulses Respiratory: CTAB, no wheezes, no rales, no ronchi, normal chest expansion, no tachypnea, normal percussion Gastrointestinal: soft, non-tender, non-distended, normal bowel sounds, no palpable masses, no hepatomegaly, no splenomegaly, no bruit Extremities: no cyanosis, no clubbing, no edema Skin - other findings: Diffuse erythematous patches with xeroderma. Much better than 02/14 Musculoskeletal: normal tone, normal strength, no muscle wasting Psychiatric: normal affect, normal behavior, A&O x 3 Hosp A/P (1) Diarrhea Code(s): R19.7 - DIARRHEA, UNSPECIFIED Status: Acute (2) Iron deficiency anemia Code(s): D50.9 - IRON DEFICIENCY ANEMIA, UNSPECIFIED Status: Acute (3) Pemphigus foliaceous Code(s): L10.2 - PEMPHIGUS FOLIACEOUS Status: Acute (4) HTN (hypertension) Code(s): I10 - ESSENTIAL (PRIMARY) HYPERTENSION Status: Chronic (5) Morbid obesity Code(s): E66.01 - MORBID (SEVERE) OBESITY DUE TO EXCESS CALORIES Status: Chronic - Plan Pemphigus is much better overall from January admission. Still on prednisone. Diarrhea was initially thought to be better with cessation of the Doxy, but that is not clear now. Continue to monitor for one more day. If persists and CORTEZ otherwise negative, can be more aggressive in treating it symptomatically. Can have a mainline IV. Trying antihistamines and topicals for the pruritis. Difficult social situation. Apparently there is an APS case open. Difficulty with self-care.
[2019-04-09] MEDS: diphenhydrAMINE 25 MG CAP PO PRN ×2 (00:08→20:25)
[2019-04-09] MEDS: Sodium Chloride 0.9% 1,000 ML IV SCH ×2 (04:46→10:06)
[2019-04-09] MEDS: Acetaminophen 325 MG TAB PO PRN (08:54)
[2019-04-09] MEDS: predniSONE 20 MG TAB PO SCH (08:54)
--- NOTE | 2019-04-09 15:20 | PRG ---
DATE OF SERVICE: 04/09/2019 SUBJECTIVE: Sitting and getting ready to eat lunch. Has a good appetite. A little bit of abdominal cramps here and there, but not as much as before. The diarrhea has subsided. No dyspnea. Skin has improved. I think she is using the creams that are given to her. OBJECTIVE: VITAL SIGNS: She has been afebrile, blood pressure 130/60, pulse 81 , respirations 18, O2 saturation 93-100. GENERAL: Appears well, in no distress, oriented. SKIN: Again has improved with less scabbing, and the facial skin is much smoother and less erythematous. LUNGS: Clear. HEART: S1-S2, regular rate. ABDOMEN: Less tender. Bowel sounds are normal. LABORATORY DATA: White cell count 7.4, hemoglobin 8.6, platelets 206. Sodium 137. Creatinine 0.63. Blood cultures with Staph epi and Corynebacterium most likely contaminants. MEDICATIONS: She is on prednisone 40, not on antimicrobial therapy. ASSESSMENT AND DISCUSSION: Pemphigus foliaceus, on prednisone, recent treatment for MRSA bacteremia which lasted about 4 weeks and it was done within the hospital admission that she had recently and now what appears to be a minocycline adverse reaction which has improved after discontinuation of minocycline. She is off antimicrobial therapy and hopefully will be able to be discharged soon. Needs to fu with her coordinator mining products to establish a better regimen for her pemphigus, this should be done in [place]. Job ID: [id number] MTDD
--- NOTE | 2019-04-09 16:44 | PDOC.HOSPP ---
- Subjective Subjective: Diarrhea is improving. Reports an episode of pain in her side last night when she tried to get up too quickly. Better now. - Objective Vital Signs & Weight: Vital Signs (12 hours) Temp Pulse Resp BP BP Pulse Ox 04/09/19 12:30 97.6 F 81 18 131/66 93 L 04/09/19 07:57 97.4 F L 89 18 133/61 100 Weight Admit Weight 331 lb 4.8 oz Weight 331 lb 4.8 oz I&O: 04/08/19 04/09/19 04/10/19 06:59 06:59 06:59 Intake Total 3640 2440 Output Total 400 Balance 3240 2440 Result Diagrams: 04/08/19 04:30 04/08/19 04:30 Hospitalist ROS - Medication Medications: Active Medications Generic Name Dose Route Start Last Admin Trade Name Freq PRN Reason Stop Dose Admin Acetaminophen 650 mg 04/06/19 00:40 04/09/19 08:54 Tylenol PO 650 mg Q4H PRN Administration Headache/Fever/Mild Pain (1-3) Diphenhydramine HCl 25 mg 04/08/19 23:31 04/09/19 00:08 Benadryl PO 25 mg Q6H PRN Administration Itching & Insomnia Famotidine 20 mg 04/06/19 20:56 04/08/19 05:14 Pepcid PO 20 mg BID PRN Administration Indigestion Sodium Chloride 1,000 mls @ 100 mls/hr 04/06/19 02:00 04/09/19 10:06 Normal Saline 0.9% IV Not Given .Q10H KERRY Metoprolol Succinate 50 mg 04/06/19 09:00 04/09/19 08:54 Toprol Xl PO 50 mg DAILY KERRY Administration Morphine Sulfate 2 mg 04/06/19 00:44 04/09/19 02:15 Morphine SLOW IVP 2 mg Q4H PRN Administration Severe Pain (7-10) Ondansetron HCl 4 mg 04/06/19 00:40 04/07/19 18:37 Zofran IVP 4 mg Q6H PRN Administration Nausea/Vomiting Prednisone 40 mg 04/06/19 08:00 04/09/19 08:54 Prednisone PO 40 mg QAM-WM KERRY Administration Sertraline HCl 50 mg 04/06/19 21:00 04/08/19 22:11 Zoloft PO 50 mg HS KERRY Administration Sodium Chloride 10 ml 04/08/19 21:00 04/09/19 08:55 Flush - Normal Saline IVF 10 ml Q12HR KERRY Administration - Exam General Appearance: NAD, awake alert General - other findings: morbidly obese. Heart: RRR, no murmur Respiratory: CTAB, no wheezes, no rales, no ronchi, normal chest expansion, no tachypnea, normal percussion Skin - other findings: Diffuse scaling, erythematous patches. Hosp A/P (1) Diarrhea Code(s): R19.7 - DIARRHEA, UNSPECIFIED Status: Acute (2) Iron deficiency anemia Code(s): D50.9 - IRON DEFICIENCY ANEMIA, UNSPECIFIED Status: Acute (3) Pemphigus foliaceous Code(s): L10.2 - PEMPHIGUS FOLIACEOUS Status: Acute (4) HTN (hypertension) Code(s): I10 - ESSENTIAL (PRIMARY) HYPERTENSION Status: Chronic (5) Morbid obesity Code(s): E66.01 - MORBID (SEVERE) OBESITY DUE TO EXCESS CALORIES Status: Chronic - Plan Pemphigus is much better overall from January admission. Still on prednisone. Diarrhea appears to be improving. anticipate DC in am. Trying antihistamines and topicals for the pruritis. Difficult social situation. Apparently there is an APS case open. Difficulty with self-care. Says she sees Dr. Knutson at the [facility] in [place]. She will be able to follow up there.
[2019-04-10] MEDS: diphenhydrAMINE 25 MG CAP PO PRN (02:34)
[2019-04-10] MEDS: predniSONE 20 MG TAB PO SCH (09:33)
[2019-04-10] MEDS: Acetaminophen 325 MG TAB PO PRN (11:12)
[2019-04-10 11:16] VITALS: BP 132/62; TEMP 97.5
--- NOTE | 2019-04-10 14:47 | DIS ---
DATE OF ADMISSION: 04/05/2019 DATE OF DISCHARGE: 04/10/2019 DISCHARGE DIAGNOSES: 1. Acute diarrheal illness. 2. Iron deficiency anemia. 3. Severe foliaceus pemphigus. 4. Hypertension. 5. Morbid obesity. 6. History of prior methicillin-resistant Staphylococcus aureus bacteremia. 7. Gastroenteritis likely secondary to doxycycline. HISTORY OF PRESENT ILLNESS: This patient is a 38-year-old female with severe foliaceus pemphigus with severe dermatologic issues. She previously had infection from this resulting in significant MRSA bacteremia which was treated aggressively with a prolonged course of IV antibiotics and appeared to be resolved. She had additional findings of Enterococcus and Corynebacterium species on blood cultures as well. She has been aggressively treated for her pemphigus primarily with the use of chronic ongoing prednisone and her skin has actually drastically improved from her previous admission when I saw her in January. The patient presented on this particular occasion with subjective fever, nausea, vomiting, and diarrheal symptoms. She was tachycardic and had a white count of 14,000, although no fever was ever documented. Initially, there was concern the patient was septic given her immune-compromised state with tachycardia and borderline white count. HOSPITAL COURSE: The patient was admitted to the hospital and started on broad-spectrum antibiotics. She had negative workup with no evidence of infection on blood cultures, urinalysis, chest x-ray. She subsequently had her doxycycline discontinued for fear that it might have been the culprit in her symptoms as she had recently changed to that after going off the IV medications. With the cessation of that medication, her symptoms did resolve and it was felt that this was the source and her white count was related to the chronic steroid use and there was no actual sepsis or underlying infection with that. The patient was evaluated by Infectious Disease and felt to be stable for discharge for outpatient followup. PHYSICAL EXAMINATION: VITAL SIGNS: On the day of discharge, pulse 84, respirations 20, temperature afebrile, BP is 124/72. GENERAL: She is awake and alert. HEART: Regular rate and rhythm. LUNGS: Clear bilaterally. ABDOMEN: Benign. EXTREMITIES: No edema. SKIN: Still has fairly diffuse dermatitis, however, again vastly improved. DISPOSITION: The patient is discharged home. DISCHARGE MEDICATIONS: She is to continue her usual home medications including 1. Hydroxyzine 25 mg q.i.d. 2. Prednisone 40 mg daily. 3. Zinc 220 mg daily. 4. Triamcinolone ointment 0.1% topically b.i.d. 5. Zoloft 50 mg at bedtime. 6. Toprol-XL 50 mg daily. 7. Hydrocortisone cream p.r.n. 8. Vitamin C 500 mg daily. 9. Norvasc 10 mg daily. 10. Tylenol p.r.n. She is to discontinue doxycycline. DIET: She is to have a regular diet. ACTIVITY: Activity level is as tolerated. FOLLOWUP: She is to follow up with her filter tender jelly from [facility] at the [facility]. She can return to the hospital at anytime should she have the need to do so. TIME SPENT: Total time in discharge activity was 37 minutes. Job ID: [id number] MTDD
== END 2019-04-10 14:22 | disposition home or self-care (01) | DRG 392 ==
LOC: 2NO 21:50
PROVIDERS: ADMIT Hospitalist; ATTEND Hospitalist
DX: R19.7 Diarrhea, unspecified (principal); L10.2 Pemphigus foliaceous; Z68.43 Body mass index [BMI] 50.0-59.9, adult; E87.1 Hypo-osmolality and hyponatremia; E87.2 Acidosis; D50.9 Iron deficiency anemia, unspecified; I10 Essential (primary) hypertension; E66.01 Morbid (severe) obesity due to excess calories; Z90.49 Acquired absence of other specified parts of digestive tract; Z88.8 Allergy status to other drugs, medicaments and biological substances; E83.51 Hypocalcemia; I95.9 Hypotension, unspecified; I48.91 Unspecified atrial fibrillation; D63.8 Anemia in other chronic diseases classified elsewhere; L29.9 Pruritus, unspecified
CPT/HCPCS: 36415; 74177; 80048; 80076; 81001; 82607; 82728; 82746; 83540; 83550; 83605; 83630; 84439; 84443; 84481; 84703; 85025; 85027; 87045; 87046; 87086; 87324; 87427; 87449; J1200; J2020; J2270; J2405; J2543; J3490; J7512; Q0163; Q9967

== ENCOUNTER 2019-10-10 19:30 | Outpatient (CLI) | payer OTHER | END 2019-10-10 19:31 | disposition home or self-care (01) | LOC: SLEEPLAB 19:30 | PROVIDERS: ATTEND Nurse Practitioner Family | DX: G47.33 Obstructive sleep apnea (adult) (pediatric) (principal); E66.9 Obesity, unspecified; R06.83 Snoring | CPT/HCPCS: 95810 ==

== ENCOUNTER 2019-12-25 05:03 | Inpatient (IN) | payer OTHER ==
[2019-12-25] MEDS ORDERED: Ondansetron PF 4 MG/2 ML Vial ONE (05:35)
[2019-12-25] MEDS ORDERED: Morphine 4 MG/ML VIAL ONE (05:35)
[2019-12-25] MEDS ORDERED: Ibuprofen 800 MG TAB ONE (07:18)
[2019-12-25] MEDS ORDERED: diphenhydrAMINE 50 MG/ML VIAL ONE (10:01)
[2019-12-25] MEDS ORDERED: Ondansetron ODT 4 MG TAB PO PRN (11:01)
[2019-12-25] MEDS ORDERED: hydrALAZINE 20 MG/ML VIAL SLOW IVP PRN (11:01)
[2019-12-25] MEDS ORDERED: Ondansetron PF 4 MG/2 ML Vial IVP PRN (11:01)
[2019-12-25] MEDS: Lactated Ringer's 1,000 ML IV SCH ×2 (11:55→22:27)
[2019-12-25] MEDS ORDERED: Vancomycin 1 GM in Premix Bag 1 BAG IVPB SCH (12:00)
--- NOTE | 2019-12-25 12:11 | CT ---
CT ABDOMEN NONCONTRAST CT PELVIS NONCONTRAST: (Urolithiasis protocol) DATE: 12/25/2019 HISTORY: 39-year-old female with "nephrolithiasis and sepsis." Fever, nausea, and vomiting. COMPARISON: 04/06/2019 TECHNIQUE: IV injection of iodinated contrast media: None Oral contrast media: None FINDINGS: Other than for urolithiasis, the lack of IV and oral contrast limits the evaluation. Again demonstrated are the 2 left renal calculi. The larger one, measuring approximately 15 x 13 x 10 mm, has migrated into the left renal pelvis. The other one, measuring 7 x 6 x 9 mm, remains in a left renal lower pole calyx. There is a new finding of mild dilation of the left renal collecting system involving all of the janiya sofía. No calculus in the right kidney, bilateral ureters, or urinary bladder. No colonic diverticulitis, small bowel dilation, ascites, or pneumoperitoneum. Diffusely low hepatic attenuation represents fatty liver. Spleen is approximately 13.5 x 12.5 x 6 and ureters, upper limits of normal, unchanged. No abscess. Suture line at tip of cecum. Appendix not visualized. No abscess. Rectum slightly expanded filled with homogeneous density material of 45 Hounsfield units, questionabl e for blood. Lung bases are grossly clear. Bilateral tubal ligation clips in the pelvis. Within the limitations of a noncontrast scan, no gross abnormality identified involving urinary bladd er, abdominal aorta, right kidney, pancreas, adrenals. IMPRESSION: 1) left nephrolithiasis consisting of 2 left renal calculi, one of them 15 mm and the other 9 mm. 2) the 15 mm calculus has migrated into the left renal pelvis. 3) new finding of mild left hydronephrosis. 4) hepatic steatosis. 5) status post appendectomy, cholecystectomy, and bilateral tubal ligation. 6) questionable bloody stool in rectum. 7) borderline splenomegaly
[2019-12-25] MEDS: hydrOXYzine 25 MG TAB PO PRN (13:45)
[2019-12-25] MEDS: Acetaminophen 325 MG TAB PO PRN (13:49)
--- NOTE | 2019-12-25 15:15 | HP ---
PRIMARY CARE: Through the [facility]. HISTORY OF PRESENT ILLNESS: Ms. Mcqueen is a very pleasant 39-year-old female, who has a history of hypertension as well as history of kidney stones. She says that about 2 days ago, she started feeling sick, having nausea, vomiting, and diarrhea and says her whole body was hurting. She also says she has had a poor appetite and has not eaten in two days and essentially cannot keep anything down. She said she was feeling dizzy and like she was going to pass out. For this reason, her family members called EMS, and she was taken to the emergency room in [place]. There, they were concerned about possible sepsis and then sent her over to our facility. She says that she has been having a dry cough. 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 Otherwise, there has been no obvious source of infection. REVIEW OF SYSTEMS: All systems were reviewed and are negative except for that mentioned in the history of present illness. PAST MEDICAL HISTORY: Significant for kidney stones, hypertension, and history of pemphigus. PAST SURGICAL HISTORY: She has had a cholecystectomy, bilateral tubal ligation, appendectomy, ear drum transplant bilaterally, and recent laparoscopic cholecystectomy. ALLERGIES: TO CEFTAZIDIME AND DIAZEPAM, WHICH CAUSE A RASH WELL SILVADENE. SOCIAL HISTORY: She is . She has 2 children. She is a nonsmoker and nondrinker. FAMILY HISTORY: Significant for COPD and diabetes mellitus. CURRENT MEDICATIONS: Taken from her ER records and include; 1. Prednisone 60 mg daily. 2. Sertraline 50 mg daily. 3. Hydroxyzine 25 mg q.6. 4. Amlodipine 5 mg 2 tablets p.o. daily. 5. Lisinopril/hydrochlorothiazide 10/12.5 one tablet daily. 6. Glipizide 10 mg p.o. daily. PHYSICAL EXAMINATION: GENERAL: She is alert and oriented. She appears to be in no acute distress. She is morbidly obese, but she does appear ill. VITAL SIGNS: Blood pressure was 126/58, heart rate was ranging from 115 to 122, temperature max was 103. Current temperature is 100.2, and she is afebrile. HEENT: Pupils are equal, round, and reactive. Extraocular muscles are intact. Her sclerae anicteric. Throat, she has dry mucous membranes. Poor dentition. She does have some teeth, which are broken off in the molars on the right side. There is no erythema, however. NECK: There is no adenopathy. No bruits. LUNGS: Clear to auscultation. There is no wheezing. No rales. No rhonchi. CARDIOVASCULAR: She has a normal S1 and S2. There is no S3 or S4. No murmurs, clicks, or rubs. ABDOMEN: Obese. It is soft, nontender, and nondistended. Positive for bowel sounds. No rebound. No guarding. No organomegaly. EXTREMITIES: She does have some diffuse erythema throughout and more pronounced on the torso, especially on the back, and she does have some flat scaly lesions in different stages on her upper and lower extremities, some with some dark black eschar appearance. NEUROLOGIC: The exam is grossly nonfocal. LABORATORY DATA: She had a chest x-ray with a normal heart size with no infiltrates or effusions and that is by my reading. Her lab results from the outside ER include white blood cell count of 10.9, hemoglobin 11.7, hematocrit is 37.4, and platelet count is 251. The sodium was 131, potassium 3.2, chloride is 97, CO2 is 20, BUN of 15, creatinine of 1.02, glucose is 183. Lactic acid was 2.9. Urinalysis showed 4 to 6 wbc's, but there were 21 to 50 squamous cells, no bacteria. She had an EKG that was essentially normal sinus rhythm, the rate was 91, and she did have some poor R wave progression at actually V2, but otherwise normal, that is by my reading. ASSESSMENT AND PLAN: 1. This is a pleasant 39-year-old female, who presents with sepsis with fever and tachycardia and mild leukocytosis. The etiology of which is unknown. This could be simply a viral syndrome with nausea, vomiting, and diarrhea. However, she does have poor dentition, which can be a risk factor for bacteremia and even endocarditis. She also has a history of kidney stones, which could be a nidus of infection as well. Therefore, we will cover her broadly as far as antibiotics. Follow up on blood and urine cultures. Get an echocardiogram and consider a CT stone protocol of her kidneys and also have a low threshold for ID consult. 2. Hypertension. Currently, her blood pressure is controlled. We will hold off on her GISELL inhibitor for now and treat her with p.r.n. medications as needed, and she will be placed on deep venous thrombosis and gastrointestinal prophylaxis. Job ID: [id number]
[2019-12-25] MEDS ORDERED: Loperamide HCl 2 MG CAP PO PRN (17:46)
[2019-12-25 17:57] LABS: SARS-CoV-2 MS2 Positive; SARS-CoV-2 N Gene Negative; SARS-CoV-2 S Gene Negative; SARS-CoV-2 by NAA Not Detected (NotDetected); SARS-CoV-2 orf1ab Negative
[2019-12-25] MEDS: diphenhydrAMINE 25 MG CAP PO PRN (18:39)
[2019-12-25] MEDS: Vancomycin 1.5 GRAM/300 ML BAG 1.5 GM in Premix Bag 1 BAG IVPB SCH (20:55)
[2019-12-25] MEDS: Famotidine 20 MG TAB PO SCH (20:55)
[2019-12-26] MEDS: Ondansetron ODT 4 MG TAB PO PRN (01:08)
[2019-12-26] MEDS: Acetaminophen 325 MG TAB PO PRN ×2 (01:08→12:36)
[2019-12-26] MEDS: diphenhydrAMINE 25 MG CAP PO PRN ×3 (02:02→22:31)
[2019-12-26] MEDS: Vancomycin 1.5 GRAM/300 ML BAG 1.5 GM in Premix Bag 1 BAG IVPB SCH (04:04)
[2019-12-26] MEDS: Lactated Ringer's 1,000 ML IV SCH ×3 (04:12→21:33)
[2019-12-26 04:51] LABS: #Eosinphils 0.5 thou/uL (0.0-0.7); #Lymphocytes 0.5 thou/uL (1.20-3.40); #Monocytes 0.1 thou/uL (0.11-0.59); #Neutrophils 4.7 thou/uL (1.40-6.50); %Basophils 0.1 % (0.0-1.0); %Eosinophils 9.5 % (0.0-10.0); %Lymphocytes 8.1 % (21.0-51.0); %Monocytes 1.5 % (0.0-10.0); %Neutrophils 80.8 % (42.0-75.0); Hemoglobin 11.1 g/dL (12.0-16.0); Mean Corpuscular HGB CONC 32.1 g/dL (32.0-36.0); Mean Corpuscular Hemoglobin 27.7 pg (27.0-31.0); Mean Corpuscular Volume 86.2 fL (78.0-98.0); Mean Platelet Volume 9.6 fL (7.4-10.4); Platelet Count 136 thou/uL (130-400); RBC Distribution Width 14.4 % (11.5-14.5); Red Blood Cell (RBC) Count 4.02 mill/uL (4.20-5.40); White Blood Cell (WBC) Count 5.8 thou/uL (4.8-10.8)
[2019-12-26 05:10] LABS: Anion Gap 14 mmol/L (10-20); BUN (Urea Nitrogen) 22 mg/dL (7.0-18.7); Calc. Creatinine Clearance 142 mL/min (70-130); Calcium 7.3 mg/dL (7.8-10.44); Carbon Dioxide 15 mmol/L (22-29); Chloride 105 mmol/L (98-107); Estimated GFR-MDRD 45; Glucose 110 mg/dL (70-105); Potassium 3.3 mmol/L (3.5-5.1); Sodium 131 mmol/L (136-145)
[2019-12-26 05:16] LABS: Lactic Acid 1.9 mmol/L (0.5-2.2)
[2019-12-26] MEDS: Famotidine 20 MG TAB PO SCH ×2 (09:35→21:32)
[2019-12-26] MEDS: Saccharomyces boulardii 250 MG CAP PO SCH (09:36)
[2019-12-26] MEDS: Enoxaparin Sodium 40 MG/0.4 ML SYRINGE SC SCH (09:36)
[2019-12-26 11:13] LABS: Vancomycin, Trough 24.7 ug/mL
[2019-12-26] MEDS: Ondansetron PF 4 MG/2 ML Vial IVP PRN ×2 (12:32→22:31)
[2019-12-26] MEDS: Vancomycin HCl 1.25 GM in Sodium Chloride 0.9% 250 ML 250 ML IVPB SCH ×2 (13:21→21:38)
--- NOTE | 2019-12-26 15:06 | PDOC.HOSPP ---
- Subjective Encounter Date: 12/26/19 Encounter Time: 15:04 Subjective: Ms. Mcqueen was seen today in follow-up of sepsis, etiology is unclear. She notes itching all over. She notes the redness in her skin, but says she will get this from time to time usually when the Pemphigus flares up. - Objective Vital Signs & Weight: Vital Signs (12 hours) Temp Pulse Resp BP Pulse Ox 12/26/19 12:00 101.8 F H 104 H 20 115/58 L 95 12/26/19 08:00 100 12/26/19 07:35 99.7 F H 99 18 125/68 100 12/26/19 03:53 98.8 F 112 H 20 125/58 L 97 Weight Admit Weight 352 lb 5 oz Weight 352 lb I&O: 12/25/19 12/26/19 12/27/19 06:59 06:59 06:59 Intake Total 4228 Balance 4228 Result Diagrams: 12/26/19 04:14 12/26/19 04:14 Hospitalist ROS - Medication Medications: Active Medications Generic Name Dose Route Start Last Admin Trade Name Freq PRN Reason Stop Dose Admin Acetaminophen 650 mg 12/25/19 11:01 12/26/19 12:36 Acetaminophen 325 Mg Tab PO 650 mg Q4H PRN Administration Headache/Fever/Mild Pain (1-3) Diphenhydramine HCl 25 mg 12/25/19 11:01 12/26/19 14:02 Diphenhydramine 25 Mg Cap PO 25 mg Q4H PRN Administration Itching & Hives (mild) Enoxaparin Sodium 40 mg 12/26/19 09:00 12/26/19 09:36 Enoxaparin Sodium 40 Mg/0.4 Ml Syringe SC 40 mg 0900 KERRY Administration Famotidine 20 mg 12/25/19 21:00 12/26/19 09:35 Famotidine 20 Mg Tab PO 20 mg BID KERRY Administration Hydroxyzine HCl 25 mg 12/25/19 13:26 12/25/19 13:45 Hydroxyzine 25 Mg Tab PO 25 mg Q6H PRN Administration Itching Lactated Ringer's 1,000 mls @ 100 mls/hr 12/25/19 11:01 12/26/19 04:12 Lactated Ringer's IV 1,000 mls .Q10H KERRY Administration Vancomycin HCl 1.25 gm/ Sodium 250 mls @ 166.667 mls/hr 12/26/19 14:00 12/26/19 13:21 Chloride IVPB 250 mls Q8HR KERRY Administration Loperamide HCl 2 mg 12/25/19 17:46 12/25/19 18:39 Loperamide Hcl 2 Mg Cap PO 2 mg DAILYPRN PRN Administration Diarrhea/Loose Stools Ondansetron HCl 4 mg 12/25/19 11:01 12/26/19 12:32 Ondansetron Pf 4 Mg/2 Ml Vial IVP 4 mg Q6H PRN Administration Nausea/Vomiting Ondansetron HCl 4 mg 12/25/19 11:01 12/26/19 01:08 Ondansetron Odt 4 Mg Tab PO 4 mg Q6H PRN Administration Nausea/Vomiting Saccharomyces Boulardii 250 mg 12/26/19 09:00 12/26/19 09:36 Saccharomyces Boulardii 250 Mg Cap PO 250 mg DAILY KERRY Administration - Exam Eye: PERRL, anicteric sclera Heart: RRR, no murmur, no gallops Respiratory: CTAB, no wheezes, no rales, no ronchi, normal chest expansion Gastrointestinal: soft, non-tender, non-distended, normal bowel sounds, no palpable masses, no hepatomegaly, no splenomegaly Extremities: no cyanosis (erythema) Hosp A/P (1) Sepsis Code(s): A41.9 - SEPSIS, UNSPECIFIED ORGANISM Status: Acute (2) HTN (hypertension) Code(s): I10 - ESSENTIAL (PRIMARY) HYPERTENSION Status: Chronic (3) Left nephrolithiasis Code(s): N20.0 - CALCULUS OF KIDNEY Status: Chronic (4) Morbid obesity Code(s): E66.01 - MORBID (SEVERE) OBESITY DUE TO EXCESS CALORIES Status: Chronic - Plan * Sepsis- ? etiology- Levaquin was discontinued due to possible allergy. She only had red cells in the urine, so will hold off on starting a new antibiotic until she can be assessed by ID. ( She reports allergy to cephalosporins as well ) * Nephrolithiasis- it is unclear if this is contributing to sepsis. She has evidence of Hydronephrosis- Urology evaluation is in progress * HTN-blood pressure is stable * Morbid Obesity *
[2019-12-26] MEDS ORDERED: predniSONE 20 MG TAB PO SCH (15:30)
[2019-12-26] MEDS ORDERED: Meropenem 1 GM in Sodium Chloride 0.9% 100 ML IVPB SCH (17:00)
--- NOTE | 2019-12-26 19:42 | CON ---
DATE OF CONSULTATION: 12/26/2019 HISTORY OF PRESENT ILLNESS: This is a 39-year-old white female, whom I was asked to see because of left renal stones. She was admitted with abdominal pain, nausea, vomiting, dizziness for 2-3 days' duration at home. She has had a fever, looks like 101.8 here. Her white count was normal. COVID test was negative. Creatinine was 1.3. She had a CAT scan done that I reviewed. CAT scan shows left-sided renal stones. There is perhaps some mild left hydro. She has two stones in the kidney; the largest one was at the UPJ region of the renal pelvis, measures 15 mm in its largest diameter; smaller one measuring 9 mm in the left lower pole gautam. There is mild dilatation of left renal collecting system. On talking with her, she is not a tremendous historian, but she recalls being told in March that she had kidney stones, but that they could not be treated until she had health insurance. She did at that time have a laparoscopic cholecystectomy. She has not seen anybody about the stones. She thought that perhaps the doctor she has been seeing in [place] for her pemphigus was a urologist, but this I do not think makes any sense at all. I think he is probably not a urologist, and as far as she knows, she has never seen anybody here in town. On talking with her, she states that her pain is a bit worse on the left than the right, but has more diffuse abdominal pain. She does have a mild increased temperature now, 101.8 and is a little bit tachycardic. Her urinalysis from yesterday showed 11-10 red cells, 4-6 white cells, 21-50 squamous cells, 2+ mucus, and rare bacteria. I found the blood cultures, I have not found the urine culture. Blood cultures so far negative. PAST SURGICAL HISTORY: She has had a cholecystectomy, tubal ligation, appendectomy, ear drum procedures. She has a history of hypertension, history of pemphigus, and does have a history of stone. ALLERGIES: SHE IS ALLERGIC TO FORTAZ, DIAZEPAM, AND SILVADENE. SOCIAL HISTORY: She does not smoke, does not drink. MEDICATIONS: Well listed. It looks like she is currently just taking the vancomycin as the antibiotic, but did I think have Levaquin in the ER yesterday. I think the thought is that her fever may be related to the pemphigus and I am assuming that is why vancomycin has been chosen. I know she has seen Dr. Barrios before. It looks like she saw him back in March and it may be that he will be reconsulted. IMPRESSION: Left renal calculi. There is some mild hydro. The stones are in the renal pelvis and UPJ region, but not in the ureter itself. I think to treat these. She would either need a percutaneous procedure or a ureteroscopic procedure. She is very obese. I think a percutaneous procedure may be difficult on her so one option would be to consider passing a stent that would relieve any obstruction she may have. If any of her pain is related to the stones, it should help with that and then coming back in a couple of weeks and doing one or two ureteroscopy as it may even take three with the stone burden that she has. I think I would like to see what her hospitalist thoughts are in this regard and if she gets an Infectious Disease consult, what their thoughts are. Job ID: [id number]
[2019-12-26] MEDS: Ibuprofen 200 MG TAB PO PRN (21:32)
--- NOTE | 2019-12-26 21:59 | CON ---
DATE OF CONSULTATION: 12/26/2019 REASON FOR CONSULTATION: Nephrolithiasis with some obstruction and abdominal pain. 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 She had to have a Rituxan added and she has a lot of functional impairment because of skin eruption with constant burning sensation, difficulty sleeping at night, and so on so forth. When I saw her, she was having unremitting nausea, vomiting, and diarrhea. Previously, she had been treated for just a few weeks before this second admission. She has been treated for MRSA bacteremia, which was persistent and not treated yet and she completed treatment with vancomycin, and I think the entire treatment was given while she was in the hospital and then she gets readmitted with this gastrointestinal complication, which was felt to be secondary to minocycline, which we had been added in March in an attempt to improve the control of her pemphigus. That was discontinued and she improved and was released and then she received the Rituxan and has improved markedly in control of her pemphigus foliaceus with marked improvement in her skin symptoms and appearance as well, but she has developed now dizziness and what she describes as a left-sided flank pain, some nausea, intermittent vomiting and diarrhea. In the emergency room; however, there is no mention of abdominal pain. In fact the ER physician specifically denies that she was having abdominal pain. On arrival; BP 120/50, pulse 98, respirations 16, temperature 98.1, and O2 saturation 99. The temperature went up to 103 after that and the exam, the patient did not appear in distress. Lung exam was normal. The heart exam was normal and the abdomen examination is unremarkable, described as nontender as matter of fact. She had an abdomen and pelvis CT on arrival, which demonstrated the two left renal calculi, which were the same as she had before, measuring 15 x 10 mm, which had migrated down into left renal pelvis. The other one measuring 7 x 9 remains in the left renal lower pole gautam. There was mild dilation of left renal collecting system. There was evidence of fatty liver. Ureters were not dilated. Lung bases were clear. Other findings included white cell count of 5.8, hemoglobin 11, and platelets 136 with 80% neutrophils. Sodium 131, creatinine 1.31, which is higher than her baseline, lactic acid 1.9, and calcium 7.3. COVID was not detected. We have 2 sets of blood cultures pending. I do not see a urine culture although, I guess it was not refluxed. Dr. Aly has evaluated the patient with Dr. Carney and there is a possible stent placement for tomorrow. The patient currently is lying on her left lateral decubitus. She appears relatively comfortable compared with what she was when I last saw her in March of this year. The last time nobody could even touch her without her screaming in pain and she had to be sitting up all the time and now she is lying down in bed and comfortable at rest. I was able to do a full exam. She denies headaches. No visual symptoms, sore throat, odynophagia, or dysphagia. No vomiting, has subsided. No dyspnea or cough. No chest pain. She still has that what she describes as a left-sided abdominal pain localized in the left flank area. A little bit of the left back tenderness. No joint symptoms. No neurological symptoms. PAST MEDICAL HISTORY: Hypertension, obesity, nephrolithiasis, pemphigus foliaceus, and MRSA bacteremia treated for 4 weeks at the end of 2019. No evidence of recrudescence thus far. SOCIAL HISTORY: Never smoker. Lives in [place] with family. Disabled. ALLERGIES: CEFTAZIDIME AND SILVADENE. IN THE ALLERGY HISTORY, THERE IS ALSO ALLERGY TO LEVOFLOXACIN REPORTED AND DIAZEPAM. MEDICATIONS: Had been on prednisone 60 mg and getting IV Rituxan with marked improvement in control of her pemphigus foliaceus. Current med list includes; 1. Benadryl. 2. Norvasc. 3. Lovenox. 4. Pepcid. 5. Glucotrol. 6. Motrin. 7. Atarax. 8. Imodium. 9. Zofran. 10. Prednisone. 11. Zoloft. 12. Vancomycin. FAMILY HISTORY: Noncontributory. PHYSICAL EXAMINATION: VITAL SIGNS: Here after admission latest temperature 101.8, BP 115/58, pulse 104, respirations 20, and O2 saturation 95. GENERAL: Does not appear in distress. SKIN: Shows marked improvement compared with the last visit in March of this year. She still has areas of erythema and self excoriation, but markedly improved compared with the last time. I am able to actually touch her skin without her screaming like she did last time. No lymphadenopathy. HEENT: Ocular movements conjugate. Sclerae white. Pupils are equal. Oral cavity not remarkable. Numerous teeth in place with some decay. NECK: Supple. No jugular vein distention. LUNGS: Symmetric clear breath sounds. HEART: S1 and S2. Regular rate. No S3 or S4. ABDOMEN: Soft with moderate tenderness left flank area, but no other areas of tenderness. No bladder distention. She is voiding in the toilet. No edema. EXTREMITIES: Pulses 1+ in dorsalis pedis. Moves extremities equally. Cognitive function appears to be intact. LABORATORY DATA: White cell count I already reviewed that. The chest x-ray without infiltrates noted. ASSESSMENT: 1. Pemphigus foliaceus on prednisone 60 mg daily and Rituxan infusions with marked improvement after Rituxan was started in control of the skin abnormality with marked improvement in symptoms as well. 2. Nephrolithiasis initially identified I believe in March, now with a displacement of one of the stones towards the ureter with some mild dilation of the renal pelvis, left side. 3. Pain in the flank. This is interesting because it did not seem to be a voluntary report on admission through the emergency room of abdominal pain, just a nausea, vomiting, and diarrhea. 4. Fever. DISCUSSION: Differential diagnosis includes an opportunistic infectious process for example recrudescence of the MRSA bacteremia may be from a deep-seated infection. An alternate opportunistic processes including CMV viremia, Pneumocystis, or invasive UTI with pyelonephritis associated with the obstructive area. They are hard to say which one is causing the patient's symptoms at this point in time. I have to wait for the blood cultures results. Urine sample needs to be submitted for cultures as well as if it has not been done yet. We will add meropenem until urine culture results are back. Monitor blood cultures. Submit CMV DNA PCR, Fungitell essay, histoplasma antigen, and cryptococcus antigen as well. Job ID: [id number]
[2019-12-27] MEDS: MEROPENEM 1 GM/50 ML 1 GM in Premix Bag 1 BAG IVPB SCH ×3 (02:21→16:04)
[2019-12-27] MEDS: Ibuprofen 200 MG TAB PO PRN ×2 (02:22→20:23)
[2019-12-27] MEDS: hydrOXYzine 25 MG TAB PO PRN ×3 (02:22→22:27)
[2019-12-27] MEDS: Vancomycin HCl 1.25 GM in Sodium Chloride 0.9% 250 ML 250 ML IVPB SCH ×2 (07:23→14:37)
[2019-12-27] MEDS: Famotidine 20 MG TAB PO SCH ×2 (09:10→20:23)
[2019-12-27] MEDS: glipiZIDE 10 MG TAB PO SCH (09:11)
[2019-12-27] MEDS: Tamsulosin HCl 0.4 MG CAP PO SCH (09:11)
[2019-12-27] MEDS: predniSONE 20 MG TAB PO SCH (09:11)
[2019-12-27] MEDS: Saccharomyces boulardii 250 MG CAP PO SCH (09:11)
[2019-12-27] MEDS: Amlodipine 10 MG TAB PO SCH (09:15)
[2019-12-27 09:18] LABS: #Eosinphils 0.3 thou/uL (0.0-0.7); #Lymphocytes 0.5 thou/uL (1.20-3.40); #Monocytes 0.2 thou/uL (0.11-0.59); #Neutrophils 1.6 thou/uL (1.40-6.50); %Basophils 0.4 % (0.0-1.0); %Eosinophils 11.6 % (0.0-10.0); %Lymphocytes 20.4 % (21.0-51.0); %Monocytes 7.1 % (0.0-10.0); %Neutrophils 60.5 % (42.0-75.0); Mean Corpuscular HGB CONC 32.1 g/dL (32.0-36.0); Mean Corpuscular Hemoglobin 27.7 pg (27.0-31.0); Mean Corpuscular Volume 86.3 fL (78.0-98.0); Mean Platelet Volume 10.7 fL (7.4-10.4); Platelet Count 111 thou/uL (130-400); RBC Distribution Width 14.5 % (11.5-14.5); Red Blood Cell (RBC) Count 3.59 mill/uL (4.20-5.40); White Blood Cell (WBC) Count 2.6 thou/uL (4.8-10.8)
[2019-12-27] MEDS: Enoxaparin Sodium 40 MG/0.4 ML SYRINGE SC SCH (09:22)
[2019-12-27 09:42] LABS: Anion Gap 14 mmol/L (10-20); BUN (Urea Nitrogen) 18 mg/dL (7.0-18.7); Calc. Creatinine Clearance 220 mL/min (70-130); Calcium 7.9 mg/dL (7.8-10.44); Carbon Dioxide 18 mmol/L (22-29); Chloride 110 mmol/L (98-107); Estimated GFR-MDRD 74; Glucose 96 mg/dL (70-105); Potassium 3.7 mmol/L (3.5-5.1); Sodium 138 mmol/L (136-145)
[2019-12-27] MEDS: Ondansetron ODT 4 MG TAB PO PRN (10:22)
--- NOTE | 2019-12-27 11:20 | PRG ---
DATE OF SERVICE: 12/27/2019 This patient has had no temperature since yesterday at lunchtime. Her O2 sats on room air fine. Her blood pressure has been good, and she has not been tachycardic. Her white blood cell count today is 2.6, hemoglobin is 10. Her creatinine is 0.85, which is back to baseline. Urine culture has been hopefully sent through the emergency room. Blood culture that was drawn yesterday has no growth so far. She appears today comfortable. She still has some left-sided abdominal pain, but she looks very comfortable. She does not look like somebody with ureteral colic. I had talked with Dr. Barrios last night, and we had elected not to place a stent, but to look for other causes for the fever that she came in with and for her nausea and vomiting. So for the time being, we are cancelling her n.p.o. and we are going to cancel her cysto and stent. She will need to get these stones treated at some point, but again they are not obstructing ureteral stones and they do not appear to be causing her significant pain and she does not at this time appear to be septic from these. So, we will wait until further evaluation and further testing comes back in relationship to the reason she was admitted to the hospital, but for now, we are not going to place a stent. This was all discussed with her, and all questions were answered. Job ID: [id number] [facility]
--- NOTE | 2019-12-27 13:28 | PDOC.HOSPP ---
- Subjective Encounter Date: 12/27/19 Encounter Time: 13:26 Subjective: Ms. Mcqueen was seen today in follow-up of sepsis. She is feeling a little better today. She continues to note pain on her left side. She also has been having some itching as well. - Objective Vital Signs & Weight: Vital Signs (12 hours) Temp Pulse Resp BP BP Pulse Ox 12/27/19 11:43 97.4 F L 86 16 105/54 L 100 12/27/19 09:15 71 104/52 L 12/27/19 07:31 97.4 F L 83 16 109/73 100 12/27/19 04:00 97.9 F 73 18 101/51 L 97 Weight Admit Weight 352 lb 5 oz Weight 353 lb I&O: 12/26/19 12/27/19 12/28/19 06:59 06:59 06:59 Intake Total 4228 3540 Balance 4228 3540 Result Diagrams: 12/27/19 09:09 12/27/19 09:09 Hospitalist ROS - Medication Medications: Active Medications Generic Name Dose Route Start Last Admin Trade Name Freq PRN Reason Stop Dose Admin Acetaminophen 650 mg 12/25/19 11:01 12/26/19 12:36 Acetaminophen 325 Mg Tab PO 650 mg Q4H PRN Administration Headache/Fever/Mild Pain (1-3) Amlodipine Besylate 10 mg 12/27/19 09:00 12/27/19 09:15 Amlodipine 10 Mg Tab PO Not Given DAILY KERRY Diphenhydramine HCl 25 mg 12/25/19 11:01 12/26/19 22:31 Diphenhydramine 25 Mg Cap PO 25 mg Q4H PRN Administration Itching & Hives (mild) Enoxaparin Sodium 40 mg 12/26/19 09:00 12/27/19 09:22 Enoxaparin Sodium 40 Mg/0.4 Ml Syringe SC 40 mg 0900 KERRY Administration Famotidine 20 mg 12/25/19 21:00 12/27/19 09:10 Famotidine 20 Mg Tab PO 20 mg BID KERRY Administration Glipizide 10 mg 12/27/19 09:00 12/27/19 09:11 Glipizide 10 Mg Tab PO 10 mg DAILY KERRY Administration Hydroxyzine HCl 25 mg 12/25/19 13:26 12/27/19 02:22 Hydroxyzine 25 Mg Tab PO 25 mg Q6H PRN Administration Itching Lactated Ringer's 1,000 mls @ 100 mls/hr 12/25/19 11:01 12/26/19 21:33 Lactated Ringer's IV 1,000 mls .Q10H KERRY Administration Vancomycin HCl 1.25 gm/ Sodium 250 mls @ 166.667 mls/hr 12/26/19 14:00 12/27/19 07:23 Chloride IVPB 250 mls Q8HR KERRY Administration Meropenem 1 gm/ Device 50 mls @ 100 mls/hr 12/27/19 01:00 12/27/19 10:14 IVPB 50 mls 0100,0900,1700 KERRY Administration Ibuprofen 400 mg 12/25/19 11:01 12/27/19 02:22 Ibuprofen 200 Mg Tab PO 400 mg Q4H PRN Administration Fever > 101 Loperamide HCl 2 mg 12/25/19 17:46 12/25/19 18:39 Loperamide Hcl 2 Mg Cap PO 2 mg DAILYPRN PRN Administration Diarrhea/Loose Stools Ondansetron HCl 4 mg 12/25/19 11:01 12/26/19 22:31 Ondansetron Pf 4 Mg/2 Ml Vial IVP 4 mg Q6H PRN Administration Nausea/Vomiting Ondansetron HCl 4 mg 12/25/19 11:01 12/27/19 10:22 Ondansetron Odt 4 Mg Tab PO 4 mg Q6H PRN Administration Nausea/Vomiting Pantoprazole Sodium 40 mg 12/27/19 09:00 12/27/19 09:11 Pantoprazole 40 Mg Tab PO 40 mg DAILY KERRY Administration Prednisone 60 mg 12/27/19 09:00 12/27/19 09:11 Prednisone 20 Mg Tab PO 60 mg DAILY KERRY Administration Saccharomyces Boulardii 250 mg 12/26/19 09:00 12/27/19 09:11 Saccharomyces Boulardii 250 Mg Cap PO 250 mg DAILY KERRY Administration Sertraline HCl 50 mg 12/26/19 21:00 12/26/19 21:32 Sertraline Hcl 100 Mg Tab PO 50 mg HS KERRY Administration Tamsulosin HCl 0.4 mg 12/27/19 09:00 12/27/19 09:11 Tamsulosin Hcl 0.4 Mg Cap PO 0.4 mg DAILY KERRY Administration - Exam Eye: PERRL, anicteric sclera Heart: RRR, no murmur, no gallops, no rubs, normal peripheral pulses Respiratory: CTAB, no wheezes, no rales, no ronchi, normal chest expansion Gastrointestinal: soft, non-tender, non-distended, normal bowel sounds, no palpable masses Extremities: 1+ LE edema Skin - other findings: + erythema , but mildly than yesterday Hosp A/P (1) Sepsis Code(s): A41.9 - SEPSIS, UNSPECIFIED ORGANISM Status: Acute (2) HTN (hypertension) Code(s): I10 - ESSENTIAL (PRIMARY) HYPERTENSION Status: Chronic (3) Left nephrolithiasis Code(s): N20.0 - CALCULUS OF KIDNEY Status: Chronic (4) Morbid obesity Code(s): E66.01 - MORBID (SEVERE) OBESITY DUE TO EXCESS CALORIES Status: Chronic - Plan * Sepsis- ? Etiology- discussed with Dr. Barrios. He has added Meropenem to her regimen. Levaquin has been discontinued * She is being evaluated for opportunistic infections ( due to immunosuppression from the treatment of Pemphigus * Nephrolithiasis- it is unclear if this is contributing to sepsis. 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 As per Dr. Barrios, this is much improved from a prior admission
[2019-12-27] MEDS: Lactated Ringer's 1,000 ML IV SCH ×3 (13:42→23:43)
[2019-12-27] MEDS: diphenhydrAMINE 25 MG CAP PO PRN ×2 (16:04→22:09)
[2019-12-27] MEDS: Ondansetron PF 4 MG/2 ML Vial IVP PRN (20:40)
[2019-12-28] MEDS: MEROPENEM 1 GM/50 ML 1 GM in Premix Bag 1 BAG IVPB SCH ×3 (01:36→16:11)
[2019-12-28] MEDS: Lactated Ringer's 1,000 ML IV SCH ×2 (03:59→23:20)
[2019-12-28] MEDS: predniSONE 20 MG TAB PO SCH (09:44)
[2019-12-28] MEDS: Famotidine 20 MG TAB PO SCH ×2 (09:44→20:27)
[2019-12-28] MEDS: Enoxaparin Sodium 40 MG/0.4 ML SYRINGE SC SCH (09:44)
[2019-12-28] MEDS: glipiZIDE 10 MG TAB PO SCH (09:44)
[2019-12-28] MEDS: Amlodipine 10 MG TAB PO SCH (09:45)
[2019-12-28] MEDS: Saccharomyces boulardii 250 MG CAP PO SCH (09:45)
[2019-12-28] MEDS: Tamsulosin HCl 0.4 MG CAP PO SCH (09:45)
[2019-12-28] MEDS: diphenhydrAMINE 25 MG CAP PO PRN (09:45)
[2019-12-28] MEDS: Ondansetron PF 4 MG/2 ML Vial IVP PRN (10:04)
[2019-12-28] MEDS: hydrOXYzine 25 MG TAB PO PRN ×2 (11:24→20:27)
[2019-12-28] MEDS ORDERED: Doxepin HCl 25 MG CAP PO SCH (11:35)
--- NOTE | 2019-12-28 11:44 | PDOC.HOSPP ---
- Subjective Encounter Date: 12/28/19 Encounter Time: 11:43 Subjective: Ms. murguia was seen today in follow-up of sepsis. She says she feels bad. She is itching all over, and she feels the pemphigus is beginning to flare up. - Objective Vital Signs & Weight: Vital Signs (12 hours) Temp Pulse Resp BP BP Pulse Ox 12/28/19 11:18 99.7 F H 88 16 119/56 L 99 12/28/19 09:45 137/68 12/28/19 07:19 99.2 F 95 18 133/60 98 12/28/19 04:00 98.5 F 93 18 103/53 L 100 Weight Admit Weight 352 lb 5 oz Weight 354 lb I&O: 12/27/19 12/28/19 12/29/19 06:59 06:59 06:59 Intake Total 3540 4320 Output Total 700 Balance 3540 3620 Result Diagrams: 12/27/19 09:09 12/27/19 09:09 Hospitalist ROS - Medication Medications: Active Medications Generic Name Dose Route Start Last Admin Trade Name Freq PRN Reason Stop Dose Admin Acetaminophen 650 mg 12/25/19 11:01 12/26/19 12:36 Acetaminophen 325 Mg Tab PO 650 mg Q4H PRN Administration Headache/Fever/Mild Pain (1-3) Amlodipine Besylate 10 mg 12/27/19 09:00 12/28/19 09:45 Amlodipine 10 Mg Tab PO 10 mg DAILY KERRY Administration Diphenhydramine HCl 25 mg 12/25/19 11:01 12/28/19 09:45 Diphenhydramine 25 Mg Cap PO 25 mg Q4H PRN Administration Itching & Hives (mild) Enoxaparin Sodium 40 mg 12/26/19 09:00 12/28/19 09:44 Enoxaparin Sodium 40 Mg/0.4 Ml Syringe SC 40 mg 09 KERRY Administration Famotidine 20 mg 12/25/19 21:00 12/28/19 09:44 Famotidine 20 Mg Tab PO 20 mg BID KERRY Administration Glipizide 10 mg 12/27/19 09:00 12/28/19 09:44 Glipizide 10 Mg Tab PO 10 mg DAILY KERRY Administration Hydroxyzine HCl 25 mg 12/25/19 13:26 12/28/19 11:24 Hydroxyzine 25 Mg Tab PO 25 mg Q6H PRN Administration Itching Lactated Ringer's 1,000 mls @ 100 mls/hr 12/25/19 11:01 12/28/19 03:59 Lactated Ringer's IV 1,000 mls .Q10H KERRY Administration Meropenem 1 gm/ Device 50 mls @ 100 mls/hr 12/27/19 01:00 12/28/19 10:03 IVPB 50 mls 0100,0900,1700 KERRY Administration Ibuprofen 400 mg 12/25/19 11:01 12/27/19 20:23 Ibuprofen 200 Mg Tab PO 400 mg Q4H PRN Administration Fever > 101 Loperamide HCl 2 mg 12/25/19 17:46 12/25/19 18:39 Loperamide Hcl 2 Mg Cap PO 2 mg DAILYPRN PRN Administration Diarrhea/Loose Stools Ondansetron HCl 4 mg 12/25/19 11:01 12/28/19 10:04 Ondansetron Pf 4 Mg/2 Ml Vial IVP 4 mg Q6H PRN Administration Nausea/Vomiting Ondansetron HCl 4 mg 12/25/19 11:01 12/27/19 10:22 Ondansetron Odt 4 Mg Tab PO 4 mg Q6H PRN Administration Nausea/Vomiting Pantoprazole Sodium 40 mg 12/27/19 09:00 12/28/19 09:44 Pantoprazole 40 Mg Tab PO 40 mg DAILY KERRY Administration Prednisone 60 mg 12/27/19 09:00 12/28/19 09:44 Prednisone 20 Mg Tab PO 60 mg DAILY KERRY Administration Saccharomyces Boulardii 250 mg 12/26/19 09:00 12/28/19 09:45 Saccharomyces Boulardii 250 Mg Cap PO 250 mg DAILY KERRY Administration Sertraline HCl 50 mg 12/26/19 21:00 12/27/19 20:24 Sertraline Hcl 100 Mg Tab PO 50 mg HS KERRY Administration Tamsulosin HCl 0.4 mg 12/27/19 09:00 12/28/19 09:45 Tamsulosin Hcl 0.4 Mg Cap PO 0.4 mg DAILY KERRY Administration - Exam Eye: PERRL, anicteric sclera Respiratory: CTAB, no wheezes, no rales, no ronchi, normal chest expansion, no tachypnea, normal percussion Gastrointestinal: soft, non-tender, non-distended, normal bowel sounds, no palpable masses, no hepatomegaly Extremities: no cyanosis, no edema Hosp A/P (1) Sepsis Code(s): A41.9 - SEPSIS, UNSPECIFIED ORGANISM Status: Acute (2) HTN (hypertension) Code(s): I10 - ESSENTIAL (PRIMARY) HYPERTENSION Status: Chronic (3) Left nephrolithiasis Code(s): N20.0 - CALCULUS OF KIDNEY Status: Chronic (4) Morbid obesity Code(s): E66.01 - MORBID (SEVERE) OBESITY DUE TO EXCESS CALORIES Status: Chronic - Plan * Sepsis- ? Etiology- discussed with Dr. Barrios. 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
--- NOTE | 2019-12-28 15:23 | PRG ---
DATE OF SERVICE: 12/28/2019 SUBJECTIVE: Today, her skin is really bothering her, a lot of pruritus all over the place, having that hypersensitivity again as we had noted in the previous admission. No respiratory symptoms or abdominal pain. OBJECTIVE: VITAL SIGNS: T-max 101.8 on 12/25, kind of defervesced since, now the maximum was 99.7. BP 119/56, heart rate 88, respiratory rate 16, and O2 saturation 99. SKIN: She has had a few areas of erythema noted in the skin. Vancomycin was discontinued because of concern with possible histamine-associated eruption in addition to her pemphigus. LUNGS: Clear. HEART: S1 and S2. Regular rate. ABDOMEN: Soft, not distended or tender. No ascites. No bladder distention. NEUROLOGIC: She is oriented. LABORATORY DATA: Creatinine is better at 0.85. White cell count 2.6, hemoglobin 10, platelets 111, and 60% neutrophils. The blood cultures are no growth. Urine culture, no growth at 24 hours. ASSESSMENT AND DISCUSSION: 1. Pemphigus foliaceus, on prednisone and Rituxan with marked improvement compared with when I last saw her. 2. Nephrolithiasis, initially identified in March. 3. Displacement of one of the stones towards the ureter with some mild dilation of renal pelvis. 4. Nausea, vomiting, and diarrhea. 5. Fever. Thus far, cultures are negative and she is currently on broad-spectrum coverage. Vancomycin has been discontinued and meropenem continued. Final cultures are negative. I would discontinue meropenem regarding the urological intervention, it does not seem to be an emergency right now, she could potentially follow up in the outpatient setting. The assays for opportunistic pathogens are still pending, specifically histoplasma, Pneumocystis, cytomegalovirus. Job ID: [id number]
[2019-12-28] MEDS: Acetaminophen 325 MG TAB PO PRN (15:43)
[2019-12-28] MEDS: diphenhydrAMINE 50 MG/ML VIAL IVP PRN ×2 (15:43→23:19)
--- NOTE | 2019-12-28 16:14 | PRG ---
DATE OF SERVICE: 12/28/2019 This patient has been afebrile. Vital signs are stable. She has had no new lab work done. Her urine culture from yesterday is no growth at 24 hours. She has no particular complaint of flank tenderness today. She says she hurts all over. Her hands are swollen. Her skin hurts. She says she is just not feeling well at all. I am not sure if this is related to her pemphigus or something else. I did tell her that we will treat her stones when she is doing better unless it appears that the stones become an issue with her in terms of specific pain related to them. I will follow along with you for another day, but probably look at signing off and then reestablishing care when she is feeling better from these other health issues. Job ID: [id number]
[2019-12-28] MEDS: Ondansetron ODT 4 MG TAB PO PRN (20:28)
[2019-12-29] MEDS: MEROPENEM 1 GM/50 ML 1 GM in Premix Bag 1 BAG IVPB SCH ×2 (01:26→08:50)
[2019-12-29] MEDS: Lactated Ringer's 1,000 ML IV SCH ×2 (07:15→09:15)
--- NOTE | 2019-12-29 08:19 | PRG ---
DATE OF SERVICE: 12/29/2019 The patient has been afebrile with stable vital signs. She complains of some left-sided back pain, but her body aches are all gone today. She actually seems with very good spirits. She does not look to be in any acute distress. She has had some cultures done, which again take a while to get back. We can treat her stone as an outpatient. I talked with her about today, it will probably take 2 to 3 procedures based on the size of it and these will be done in a stepwise manner. I look at starting this and probably a couple of weeks as long as nothing shows up on any of her cultures, Dr. Barrios ordered my office will schedule this for her and contact her. It looks like her urine culture is going to be negative. From a urinary tract standpoint, she would not need to be on any antibiotics. I will sign off for now and if she stays in the hospital, re-consult as necessary. Job ID: [id number]
[2019-12-29] MEDS: Famotidine 20 MG TAB PO SCH (08:49)
[2019-12-29] MEDS: Amlodipine 10 MG TAB PO SCH (08:49)
[2019-12-29] MEDS: Saccharomyces boulardii 250 MG CAP PO SCH (08:50)
[2019-12-29] MEDS: diphenhydrAMINE 50 MG/ML VIAL IVP PRN (08:50)
[2019-12-29] MEDS: predniSONE 20 MG TAB PO SCH (08:50)
[2019-12-29] MEDS: Enoxaparin Sodium 40 MG/0.4 ML SYRINGE SC SCH (08:50)
[2019-12-29] MEDS: Tamsulosin HCl 0.4 MG CAP PO SCH (08:50)
[2019-12-29] MEDS: glipiZIDE 10 MG TAB PO SCH (08:50)
[2019-12-29 08:53] LABS: Anion Gap 13 mmol/L (10-20); BUN (Urea Nitrogen) 16 mg/dL (7.0-18.7); Band 10 % (5-11); Calc. Creatinine Clearance 242 mL/min (70-130); Calcium 7.8 mg/dL (7.8-10.44); Carbon Dioxide 25 mmol/L (22-29); Chloride 106 mmol/L (98-107); Elliptocytes SLIGHT = 2-5 cells (100X) (0-1/hpf); Eosinophils 6 % (0-10); Estimated GFR-MDRD 80; Glucose 76 mg/dL (70-105); Hemoglobin 9.4 g/dL (12.0-16.0); Large Platelets SLIGHT; Lymphocytes 44 % (21-51); MDiff Complete? YES; Mean Corpuscular HGB CONC 32.4 g/dL (32.0-36.0); Mean Corpuscular Hemoglobin 28.1 pg (27.0-31.0); Mean Corpuscular Volume 86.6 fL (78.0-98.0); Mean Platelet Volume 10.9 fL (7.4-10.4); Metamyelocyte 1 % (0-0); Monocytes 11 % (0-10); Neutrophil 28 % (42-75); Platelet Count 94 thou/uL (130-400); Platelet Morphology Comment Appears Decreased; Potassium 3.4 mmol/L (3.5-5.1); RBC Distribution Width 14.7 % (11.5-14.5); Red Blood Cell (RBC) Count 3.35 mill/uL (4.20-5.40); Sodium 141 mmol/L (136-145); White Blood Cell (WBC) Count 4.5 thou/uL (4.8-10.8)
[2019-12-29 14:13] VITALS: BMI 54.8
--- NOTE | 2019-12-29 15:22 | PDOC.HOSPP ---
- Subjective Encounter Date: 12/29/19 Encounter Time: 15:19 Subjective: Ms. Mcqueen was seen today in follow-up of sepsis. She does not have any complaints. - Objective Vital Signs & Weight: Vital Signs (12 hours) Temp Pulse Resp BP Pulse Ox 12/29/19 12:00 98.0 F 83 20 127/60 97 12/29/19 07:24 98.1 F 78 16 124/59 L 95 12/29/19 04:11 99.1 F 72 18 126/69 95 Weight Admit Weight 352 lb 5 oz Weight 360 lb 8 oz I&O: 12/28/19 12/29/19 12/30/19 06:59 06:59 06:59 Intake Total 4320 2700 Output Total 700 1000 Balance 3620 1700 Result Diagrams: 12/29/19 08:15 12/29/19 08:15 Hospitalist ROS - Medication Medications: Active Medications Generic Name Dose Route Start Last Admin Trade Name Freq PRN Reason Stop Dose Admin Acetaminophen 650 mg 12/25/19 11:01 12/28/19 15:43 Acetaminophen 325 Mg Tab PO 650 mg Q4H PRN Administration Headache/Fever/Mild Pain (1-3) Amlodipine Besylate 10 mg 12/27/19 09:00 12/29/19 08:49 Amlodipine 10 Mg Tab PO 10 mg DAILY KERRY Administration Diphenhydramine HCl 25 mg 12/25/19 11:01 12/28/19 09:45 Diphenhydramine 25 Mg Cap PO 25 mg Q4H PRN Administration Itching & Hives (mild) Diphenhydramine HCl 50 mg 12/28/19 11:42 12/29/19 08:50 Diphenhydramine 50 Mg/Ml Vial IVP 50 mg Q8H PRN Administration Itching Enoxaparin Sodium 40 mg 12/26/19 09:00 12/29/19 08:50 Enoxaparin Sodium 40 Mg/0.4 Ml Syringe SC 40 mg 09 KERRY Administration Famotidine 20 mg 12/25/19 21:00 12/29/19 08:49 Famotidine 20 Mg Tab PO 20 mg BID KERRY Administration Glipizide 10 mg 12/27/19 09:00 12/29/19 08:50 Glipizide 10 Mg Tab PO 10 mg DAILY KERRY Administration Hydroxyzine HCl 25 mg 12/25/19 13:26 12/28/19 20:27 Hydroxyzine 25 Mg Tab PO 25 mg Q6H PRN Administration Itching Lactated Ringer's 1,000 mls @ 100 mls/hr 12/25/19 11:01 12/29/19 09:15 Lactated Ringer's IV 1,000 mls .Q10H KERRY Administration Meropenem 1 gm/ Device 50 mls @ 100 mls/hr 12/27/19 01:00 12/29/19 08:50 IVPB 50 mls 0100,0900,1700 KERRY Administration Ibuprofen 400 mg 12/25/19 11:01 12/27/19 20:23 Ibuprofen 200 Mg Tab PO 400 mg Q4H PRN Administration Fever > 101 Loperamide HCl 2 mg 12/25/19 17:46 12/25/19 18:39 Loperamide Hcl 2 Mg Cap PO 2 mg DAILYPRN PRN Administration Diarrhea/Loose Stools Ondansetron HCl 4 mg 12/25/19 11:01 12/28/19 10:04 Ondansetron Pf 4 Mg/2 Ml Vial IVP 4 mg Q6H PRN Administration Nausea/Vomiting Ondansetron HCl 4 mg 12/25/19 11:01 12/28/19 20:28 Ondansetron Odt 4 Mg Tab PO 4 mg Q6H PRN Administration Nausea/Vomiting Pantoprazole Sodium 40 mg 12/27/19 09:00 12/29/19 08:50 Pantoprazole 40 Mg Tab PO 40 mg DAILY KERRY Administration Prednisone 60 mg 12/27/19 09:00 12/29/19 08:50 Prednisone 20 Mg Tab PO 60 mg DAILY KERRY Administration Saccharomyces Boulardii 250 mg 12/26/19 09:00 12/29/19 08:50 Saccharomyces Boulardii 250 Mg Cap PO 250 mg DAILY KERRY Administration Sertraline HCl 50 mg 12/26/19 21:00 12/28/19 20:27 Sertraline Hcl 100 Mg Tab PO 50 mg HS KERRY Administration Sodium Chloride 10 ml 12/28/19 21:00 12/29/19 08:50 Flush - Normal Saline 10 Ml Syringe IVF 10 ml Q12HR KERRY Administration Tamsulosin HCl 0.4 mg 12/27/19 09:00 12/29/19 08:50 Tamsulosin Hcl 0.4 Mg Cap PO 0.4 mg DAILY KERRY Administration - Exam Eye: PERRL, anicteric sclera Heart: RRR, no murmur, no gallops, no rubs, normal peripheral pulses Respiratory: CTAB, no wheezes, no rales, no ronchi, normal chest expansion Gastrointestinal: soft, non-tender, non-distended, normal bowel sounds Extremities: no cyanosis Hosp A/P (1) Sepsis Code(s): A41.9 - SEPSIS, UNSPECIFIED ORGANISM Status: Acute (2) HTN (hypertension) Code(s): I10 - ESSENTIAL (PRIMARY) HYPERTENSION Status: Chronic (3) Left nephrolithiasis Code(s): N20.0 - CALCULUS OF KIDNEY Status: Chronic (4) Morbid obesity Code(s): E66.01 - MORBID (SEVERE) OBESITY DUE TO EXCESS CALORIES Status: Chronic - Plan * Sepsis- ? Etiology-cultures were negative, and she has symptomatically improved * Studies for opportunistic infections are pending- and can be follow-up as an out patient * Nephrolithiasis-She will have Out patient Lithotripsy * HTN-blood pressure is stable * Morbid Obesity * Pemphigus folliaceous- stable * Stable for discharge home
[2019-12-29 15:28] VITALS: BP 130/85; TEMP 97.9
--- NOTE | 2019-12-29 22:17 | DIS ---
DATE OF ADMISSION: 12/25/2019 DATE OF DISCHARGE: 12/29/2019 DISCHARGE DISPOSITION: Home. DISCHARGE DIAGNOSES: 1. Sepsis of unknown etiology. 2. Nephrolithiasis. 3. Pemphigus foliaceus. 4. Morbid obesity. 5. Hypertension. DISCHARGE MEDICATIONS: Include: 1. Amlodipine 10 mg p.o. daily. 2. Sertraline 50 mg at bedtime. 3. Prednisone 60 mg p.o. daily. 4. Lisinopril hydrochlorothiazide 10/12.5 mg p.o. daily. 5. Glipizide 10 mg p.o. daily. 6. Flomax 0.4 mg p.o. daily. 7. Calcium carbonate calcium plus vitamin D daily. IMAGING DONE DURING THE HOSPITAL STAY: The patient had a CT scan of the abdomen. CT stone protocol showing left nephrolithiasis containing two left renal stones, one 15 mm and the other 9 mm. The 15 mm calculus had migrated into the left renal pelvis. The patient had an echocardiogram, which was negative for any evidence of vegetations. The ejection fraction was estimated at 55% to 60%. Left atrium was normal size and no other valvular abnormalities. CODE STATUS: Full code. ALLERGIES: TO CEFTAZIDIME, DIAZEPAM, LEVOFLOXACIN, AND SILVER SULFADIAZINE. HOSPITAL COURSE: Ms. Mcqueen is a pleasant 39-year-old female, who was admitted to the hospital with a complaint of her body hurting and poor appetite and feeling dizzy. She also had a temperature as high as 103 reported in the ER. There was concern for sepsis, so she was admitted, started on empiric broad-spectrum IV antibiotics. She was initially started on vancomycin and Levaquin, but the Levaquin had to be discontinued due to rash that she developed an itching. ID was consulted to help with the antibiotic choice. Since she has a history of pemphigus foliaceus, she has been on high-dose steroids on a continuous basis as well as rituximab. Therefore, she is considered immunosuppressed and for this reason, Dr. Barrios ordered blood work to assess for opportunistic infections. She was also seen by Urology due to the renal stones to make sure that these were not contributing to her presentation. It was felt that the kidney stones, which had been present for some time were not contributing to the picture of sepsis and that when she was more clinically stable, this could be addressed in the outpatient setting. The plan is for her to follow up with Dr. Barrios for the results of the test to screen for opportunistic infection and then once cleared from this, she would then proceed with lithotripsy by Dr. Aly. The patient had understanding of the plan and able to recount that back and is being discharged home today. Job ID: [id number]
[2019-12-29 22:37] LABS: CMV DNA-PCR Test Negative (Negative)
== END 2019-12-29 16:50 | disposition home or self-care (01) | DRG 872 ==
LOC: ERS 05:03 → 2NO 05:59
PROVIDERS: ADMIT Family Medicine; ATTEND Family Medicine
DX: A41.9 Sepsis, unspecified organism (principal); Z68.43 Body mass index [BMI] 50.0-59.9, adult; L10.2 Pemphigus foliaceous; I10 Essential (primary) hypertension; N20.0 Calculus of kidney; Z20.828 Contact with and (suspected) exposure to other viral communicable diseases; E66.01 Morbid (severe) obesity due to excess calories; Z91.14 Patient's other noncompliance with medication regimen; Z90.49 Acquired absence of other specified parts of digestive tract; Z94.89 Other transplanted organ and tissue status; Z98.51 Tubal ligation status; Z88.8 Allergy status to other drugs, medicaments and biological substances; Z79.52 Long term (current) use of systemic steroids; Z79.84 Long term (current) use of oral hypoglycemic drugs; Z79.899 Other long term (current) drug therapy
CPT/HCPCS: 36415; 74176; 80048; 80202; 83605; 85025; 87086; 87385; 87449; 87497; 87635; 93005; 93306; 96361; 96374; 96375; J1200; J1650; J1956; J2185; J2270; J2405; J3370; J7050; J7512; Q0162; Q0163; U0003

== ENCOUNTER 2020-01-17 08:08 | Outpatient (CLI) | payer OTHER ==
[2020-01-17 14:17] LABS: INR-International Normal Ratio 0.9; PTT 26.9 sec (22.9-36.1); Prothrombin Time 12.6 sec (12.0-14.7)
[2020-01-17 14:20] LABS: Hemoglobin 11.8 g/dL (12.0-16.0); Mean Corpuscular HGB CONC 32.3 g/dL (32.0-36.0); Mean Corpuscular Hemoglobin 27.6 pg (27.0-31.0); Mean Corpuscular Volume 85.5 fL (78.0-98.0); Mean Platelet Volume 8.6 fL (7.4-10.4); Platelet Count 551 thou/uL (130-400); RBC Distribution Width 14.6 % (11.5-14.5); Red Blood Cell (RBC) Count 4.28 mill/uL (4.20-5.40); White Blood Cell (WBC) Count 13.6 thou/uL (4.8-10.8)
[2020-01-17 15:24] LABS: Anion Gap 13 mmol/L (10-20); BUN (Urea Nitrogen) 19 mg/dL (7.0-18.7); Calc. Creatinine Clearance 0 mL/min (70-130); Calcium 9.1 mg/dL (7.8-10.44); Carbon Dioxide 23 mmol/L (22-29); Chloride 102 mmol/L (98-107); Estimated GFR-MDRD 77; Glucose 140 mg/dL (70-105); Potassium 4.2 mmol/L (3.5-5.1); Sodium 134 mmol/L (136-145)
[2020-01-18 13:14] LABS: SARS-CoV-2 MS2 Positive; SARS-CoV-2 N Gene Negative; SARS-CoV-2 S Gene Negative; SARS-CoV-2 by NAA Not Detected (NotDetected); SARS-CoV-2 orf1ab Negative
== END 2020-01-17 08:09 | disposition home or self-care (01) ==
LOC: LABBT 08:08
PROVIDERS: ATTEND Urology
DX: Z01.812 Encounter for preprocedural laboratory examination (principal); Z20.828 Contact with and (suspected) exposure to other viral communicable diseases; N20.1 Calculus of ureter
CPT/HCPCS: 80048; 85027; 85610; 85730; 87086; 87635; U0003

== ENCOUNTER 2020-01-22 05:42 | Day surgery (SDC) | payer OTHER ==
[2020-01-19 10:48] VITALS: BMI 50.1
[2020-01-22] MEDS ORDERED: Fentanyl 100 MCG/2 ML VIAL ONE (06:34)
[2020-01-22] MEDS ORDERED: Iothalamate Meglumine 60% 50 ML VIAL FS ONE (06:54)
[2020-01-22] MEDS ORDERED: MEROPENEM 1 GM/50 ML 1 GM in Premix Bag 1 BAG IVPB SCH (07:45)
[2020-01-22] MEDS ORDERED: SUGAMMADEX SODIUM 500 MG/5 ML VIAL ONE (08:18)
[2020-01-22] MEDS ORDERED: Promethazine HCl 25 MG/ML VIAL ONE (08:49)
--- NOTE | 2020-01-22 09:16 | RAD ---
Retrograde ureterogram intraoperative fluoroscopy HISTORY: Left renal stone. FINDINGS: Intraoperative fluoroscopy was provided for retrograde study as performed by Dr. Davis. Sp ot fluoroscopic images show contrast opacification of a distended left ureter and left renal collecting system. Lack of contrast at the renal pelvis likely represents the stone demonstrated on r ecent CT. Ligation clips overlie each adnexa.
[2020-01-22] MEDS ORDERED: Succinylcholine Chloride 20 MG/ML 10 ml SYRINGE FS ONE (09:43)
[2020-01-22] MEDS ORDERED: Dexamethasone 20 MG/5 ML VIAL ONE (09:43)
[2020-01-22] MEDS ORDERED: Rocuronium Bromide 10 MG/ML (10ML VIAL) ONE (09:43)
[2020-01-22] MEDS ORDERED: PROPOFOL 200 MG/20 ML VIAL ONE (09:43)
[2020-01-22] MEDS ORDERED: Lidocaine 1% PF 5 ML VIAL ONE (09:43)
[2020-01-22] MEDS ORDERED: Ondansetron PF 4 MG/2 ML Vial ONE (09:43)
[2020-01-22] MEDS ORDERED: HYDROcodone/Acetaminophen 5/325 mg Tablet ONE (09:51)
--- NOTE | 2020-01-22 10:15 | OP ---
DATE OF PROCEDURE: 01/22/2020 PREOPERATIVE DIAGNOSIS: Left renal pelvic stone. POSTOPERATIVE DIAGNOSIS: Left renal pelvic stone. PROCEDURES PERFORMED: 1. Cystoscopy. 2. Left retrograde. 3. Left stent. ANESTHETIC: General. ESTIMATED BLOOD LOSS: Minimal. FINDINGS: She had some mild trigonitis. She had 2 ureteral orifices. No tumor, foreign body, or stone. Retrograde study showed a small caliber of left ureter without filling defects. Ureteral orifice was capable of accepting a 5-Iraqi Pollack catheter. She had an over 1 cm left renal pelvic stone with caliectasis proximal to it. There was a tight stone in the renal pelvis. We had to manipulate open-ended catheter up to the UPJ and then a guidewire could be manipulated by it. We were able to get the proximal end of the double-J stent passed it with its coil. The urine that it drained was nonpurulent. Because of the tightness of the stone and because of the caliber of the ureter, we did not attempt ureteroscopy. DESCRIPTION OF PROCEDURE: After obtaining written and verbal consent from the patient, she was taken to the operating suite. She received meropenem IV piggyback. She was placed in supine position and given a general anesthetic and oral intubation. She was then placed in dorsal lithotomy position, sterilely prepped and draped and the fluoroscopy unit was brought in for imaging. She is a very large lady and the stone could be faintly seen with the fluoroscopy unit. Cystoscopy was performed with a 22-Iraqi sheath. This was well lubricated, passed under direct vision through the female urethra into the bladder with the aid of a 30-degree lens and a video camera and monitor. The bladder was filled and emptied and examined with 30 and 70-degree lens. A 5-Iraqi Pollack catheter was flushed with contrast, placed into the left ureteral orifice. Contrast was injected in a retrograde manner, filling out the ureter. It went up to the area of the stone. A little bit of contrast went proximal to it. We then fed the open-ended catheter up to this region, injected more. We could get just a little bit of contrast to go proximal to it. A guidewire was then brought in and fed through the [place] catheter, ran into the stone. When go by it, we were able to place a Pollack catheter right at this point and then were able to manipulate the guidewire by it. At this point, we pushed the Pollack catheter as far as it would go, that would not go past the stone. We removed the guidewire, injected some more contrast, and now we could get all the calices systems to fill out and they were dilated. The guidewires were placed through the Pollack. The Pollack was removed and then the stent was placed over the guidewire and pushed in place with aid of a pusher and we were able to get the stent to go proximal to the stone and coiled in middle to upper pole calyces. The distal end coiled in the bladder when the wire was removed. The bladder was drained. The instruments were removed. She was taken out of the dorsal lithotomy position, awakened, extubated, and taken by evan to the recovery room. Job ID: [id number]
== END 2020-01-22 10:15 | disposition home or self-care (01) ==
LOC: SDC 05:42
PROVIDERS: ATTEND Urology
PROC: 0T9780Z Drainage of Left Ureter with Drainage Device, Via Natural or Artificial Opening Endoscopic (ICD-10-PCS; principal; 2020-01-22)
DX: N20.0 Calculus of kidney (principal); I10 Essential (primary) hypertension; Z79.899 Other long term (current) drug therapy; Z88.1 Allergy status to other antibiotic agents; Z88.8 Allergy status to other drugs, medicaments and biological substances
CPT/HCPCS: 36416; 74420; 93005; 93010; J1100; J2185; J2405; J2550; J2704; J3010

== ENCOUNTER 2020-01-29 09:22 | Outpatient (CLI) | payer OTHER ==
[2020-01-29 14:13] LABS: Bilirubin Neg (Negative); Blood, Urine 250 (Negative); Glucose, Urine (Dipstick) Normal (Negative); Ketone, Urine Negative (Negative); Leukocyte 100 (Negative); Nitrite Negative (Negative); Protein, Urine (Dipstick) 100 mg/dl (Neg-Trace); Specific Gravity, Urine 1.025 (1.002-1.036)
[2020-01-29 14:45] LABS: RBC/HPF Greater than 50 HPF (0-3)
[2020-01-29 14:48] LABS: Squamous Epithelial 0-3 HPF (0-3)
[2020-01-29 14:53] LABS: Mucous/LPF Rare LPF (<2+)
[2020-01-29 14:54] LABS: Bacteria/HPF 2+ HPF (None Seen)
[2020-01-30 12:11] LABS: SARS-CoV-2 MS2 Positive; SARS-CoV-2 N Gene Negative; SARS-CoV-2 S Gene Negative; SARS-CoV-2 by NAA Not Detected (NotDetected); SARS-CoV-2 orf1ab Negative
== END 2020-01-29 09:23 | disposition home or self-care (01) ==
LOC: LABBT 09:22
PROVIDERS: ATTEND Urology
DX: Z01.812 Encounter for preprocedural laboratory examination (principal); Z20.828 Contact with and (suspected) exposure to other viral communicable diseases; N20.0 Calculus of kidney
CPT/HCPCS: 81001; 87086; 87635; U0003

== ENCOUNTER 2020-01-31 08:32 | Day surgery (SDC) | payer OTHER ==
[2020-01-30 14:48] VITALS: BMI 50.1
[2020-01-31] MEDS ORDERED: PROPOFOL 200 MG/20 ML VIAL ONE (09:08)
[2020-01-31] MEDS ORDERED: Metoclopramide HCl 10 MG/2 ML VIAL ONE (09:08)
[2020-01-31] MEDS ORDERED: Lidocaine 1% PF 5 ML VIAL ONE (09:08)
[2020-01-31] MEDS ORDERED: Ondansetron PF 4 MG/2 ML Vial ONE (09:08)
[2020-01-31] MEDS ORDERED: Rocuronium Bromide 10 MG/ML (10ML VIAL) ONE (09:08)
[2020-01-31] MEDS ORDERED: MEROPENEM 1 GM/50 ML 1 GM in Premix Bag 1 BAG IVPB SCH (11:15)
[2020-01-31] MEDS ORDERED: Meperidine HCl/PF 25 MG/ML VIAL ONE (12:14)
[2020-01-31] MEDS ORDERED: Fentanyl 100 MCG/2 ML VIAL ONE ×5 (12:14→15:29)
[2020-01-31] MEDS ORDERED: Famotidine/PF 20 mg/2ml Vial ONE (12:14)
[2020-01-31] MEDS ORDERED: Iothalamate Meglumine 60% 50 ML VIAL FS ONE (12:30)
[2020-01-31] MEDS ORDERED: Morphine 4 MG/ML VIAL ONE (16:07)
[2020-01-31] MEDS ORDERED: Promethazine HCl 25 MG/ML VIAL ONE (16:11)
[2020-01-31] MEDS ORDERED: HYDROcodone/Acetaminophen 5/325 mg Tablet ONE (17:09)
--- NOTE | 2020-01-31 17:20 | RAD ---
RETROGRADE PYELOGRAM: 01/31/20 INDICATIONS: Imaging during retrograde pyelogram procedure for left renal stone. 56 fluoroscopic images are presented from the OR during retrograde pyelogram procedure. FINDINGS/IMPRESSION: These images demonstrate wire advancing into the left ureter and upper collecting structures. Partial opacification of the upper collecting structures which shows mild calyceal dilatation. POS: AGW
--- NOTE | 2020-01-31 18:30 | OP ---
DATE OF PROCEDURE: 01/31/2020 PREOPERATIVE DIAGNOSIS: Left renal stone. POSTOPERATIVE DIAGNOSES: Left renal stone and migrated left ureteral stent. PROCEDURES PERFORMED: Cysto, left rigid ureteroscopy, retrieval of left stent, left flexible ureteroscopy with laser lithotripsy of renal pelvic and lower pole stone with stent replacement. ANESTHESIA: General. ESTIMATED BLOOD LOSS: Probably 50 mL to maybe 100 mL. DRAINS PLACED: A 4.8 x 28 cm stent without a string attached. FINDINGS: She had over 1 cm size left renal pelvic stone extending from the renal pelvis down towards the lower pole collecting system. It appeared to fragment fairly well. I did not remove any pieces and tried to break up into small pieces as we could. She has not had difficulty in getting a stent back upper for an unknown reason. Her previous stent had migrated, so we went with a 28 cm one and we used a smaller one of 4.8, which we were able to get up successfully when switching from the 6. Retrograde study done before placement of the stent did not reveal any extravasation revealed a small renal pelvis with some dilated calyces. DESCRIPTION OF PROCEDURE: After obtaining written and verbal consent from the patient and after receiving IV meropenem, she was taken to the operating suite. She was placed in a supine position on the treatment table. PlexiPulses were placed on her lower extremities and turned on. She was given a general anesthetic oral intubation, placed in the dorsal lithotomy position and sterilely prepped and draped. The fluoroscopy unit was brought in. She was positioned under the fluoroscopy unit. Cystoscopy was performed with a 22-[place] sheath. The left stent was no longer in the bladder. Fluoroscopy indicated it was in the lower third of the left ureter had migrated probably 3 to 4 cm. At this point, we had to fed up a guidewire up the size of dual-lumen catheter over the guidewire. A couple of centimeters passed the blue guidewire by this removing the dual-lumen catheter and going with the ureteral sheath just below the area of the migrated stent. We went up initially with a flexible scope. We could not basket or manipulate the lower end of the stent, so we switched to rigid scope and we used a pair of graspers and was removed intact. At this point, a retrograde study was done with a 5-[place] Pollack. There was no extravasation and normal-appearing ureter. Otherwise, the dual-lumen catheter was advanced up over our green guidewire and then about mid ureter, and then a blue guidewire was passed through the dual-lumen catheter and dual-lumen catheter was removed. The ureteral sheath was brought in, placed over the blue wire and passed up into the proximal ureter just below the area where the stone was. The blue wire and the obturator of the ureteral sheath were removed, and a flexible ureteroscope was brought in. The stone was visualized just proximal to the ureteropelvic junction. The holmium laser was brought in. We started breaking it up. It actually fragmented very well, pieces fell back in the lower pole system that we traced down there with the flexible scope. At this point, we had difficulty with the flexible scope in terms of visibility, so we switched to a different flexible scope and inspected all of the calyceal system and really found no significant stone burden remaining just smaller fragments. We then backed out our ureteral sheath under direct vision through the renal pelvis and along the course of the entire ureter. There was no evidence of any ureteral injury or early evidence of any significant ureteral stone fragments. At this point, we backloaded our green guidewire through our cystoscope and passed a 5-[place] Pollack catheter through it up in the renal pelvis, removed the guidewire, injecting contrast, filling out the upper collecting system and ureter. There was no extravasation noted. We initially attempted to pass a 6-[place] x 28 cm stent. We could not get this to get up in curl. She has a small renal pelvis and some dilated calyces. After couple of attempts with this, we switched out and went to a 4.8 x 28 cm. We were able to get this to curl in the upper collecting system above the renal pelvis and its distal end coiled in the bladder. There was good efflux through the 4.8 double-J stent. At the end of the procedure, string was not left attached to it. The bladder was drained. The instruments were removed. She was taken out of the dorsal lithotomy position, awakened, extubated, and taken by stretcher to the recovery room. Job ID: [id number]
== END 2020-01-31 17:25 | disposition home or self-care (01) ==
LOC: SDC 08:32
PROVIDERS: ATTEND Urology
PROC: 0T778DZ Dilation of Left Ureter with Intraluminal Device, Via Natural or Artificial Opening Endoscopic (ICD-10-PCS; principal; 2020-01-31)
PROC: 0TC48ZZ Extirpation of Matter from Left Kidney Pelvis, Via Natural or Artificial Opening Endoscopic (ICD-10-PCS; principal; 2020-01-31)
DX: N20.0 Calculus of kidney (principal); T83.122A Displacement of indwelling ureteral stent, initial encounter; I10 Essential (primary) hypertension; E11.9 Type 2 diabetes mellitus without complications; Z86.14 Personal history of Methicillin resistant Staphylococcus aureus infection; Z79.84 Long term (current) use of oral hypoglycemic drugs; Z79.899 Other long term (current) drug therapy; Z88.1 Allergy status to other antibiotic agents; Z88.8 Allergy status to other drugs, medicaments and biological substances
CPT/HCPCS: 74420; J2175; J2185; J2270; J2405; J2550; J2704; J2765; J3010; S0028

== ENCOUNTER 2020-02-28 12:28 | Outpatient (CLI) | payer OTHER ==
--- NOTE | 2020-02-28 13:12 | CT ---
CT OF THE ABDOMEN AND PELVIS WITHOUT IV CONTRAST INDICATION: Renal calculus COMPARISON: Prior CT the abdomen and pelvis without contrast dated December 17, 2019 FINDINGS: The lack of IV contrast limits evaluation of the solid organs of the abdomen and pelvis. ABDOMEN: Lung bases: Clear Liver: No focal lesion. Gallbladder: Surgically absent Pancreas: Normal. Adrenal glands: Normal. Spleen: Normal. Kidneys and ureters: There is a left ureteral stent projecting into the left superior pole calyx and into the bladder. No suspicious calculus is seen along the course of the ureteral stent. No hydronephrosis is evident. The large 1.2 cm staghorn calculus has been intervally removed from the le ft renal pelvis. There is been fragmentation of the larger stone involving the lower pole of the left kidney. The remaining renal calculi within the lower pole left kidney measures 5 mm, 5 mm and 4 mm in size. Vasculature: Normal. Lymph nodes:No lymphadenopathy. Free fluid in abdomen:No free fluid is evident. PELVIS: Small and large bowel: Normal Appendix:Surgically absent Bladder: Normal. Rectal and perirectal soft tissues:Normal. Reproductive structures: There are bilateral tubal ligation clips. Free fluid in pelvis: No free fluid is evident. Lymphadenopathy pelvis: No lymphadenopathy is evident. Osseous structures: There is moderate degenerative change the SI joints and moderate to severe disc d egenerative disease at L5-S1. No acute fracture or subluxation demonstrated. There is scattered degenerative and osteoarthritic changes. Soft tissues:Normal. IMPRESSION: 1. Interval removal of the large left renal pelvic staghorn calculus and fragmentation of the smaller left lower pole renal calculi. 3 separate fragment stones remain within the lower pole of the left kidney. Left ureteral stent projects in expected position. There is no left-sided hydronephrosis.
== END 2020-02-28 12:29 | disposition home or self-care (01) ==
LOC: BICCT 12:28
PROVIDERS: ATTEND Urology
DX: N20.0 Calculus of kidney (principal); Z96.0 Presence of urogenital implants; R30.0 Dysuria
CPT/HCPCS: 74176; 87086